=== PATIENT | female | born 1970 | race Caucasian/White ===

== ENCOUNTER → 2020-07-12 10:47 | Outpatient (REF) | payer OTHER, SELFPAY ==
--- NOTE | 2020-07-12 | NM_ITS ---
EXAMINATION: THREE PHASE BONE SCAN CLINICAL INFORMATION: Left foot pain. Patient states top lateral aspect of left foot pain for 5 1/2 years. Also status post bilateral elbow fractures May,, right shoulder surgery 6-7 years ago. Status post fall 3 1/2 months ago with elbow pain right greater than left.. COMPARISON: The report of a previous three-phase bone scan of the feet dated 05/24/2006 is available, but the images from that study are not available for review. No recent foot radiographs are available for comparison. Radiographs of the.right elbow dated 05/27/2020 are available for comparison. TECHNIQUE: Initial rapid sequence images were obtained over the in the anterior and posterior projections during the bolus injection of 32 mCi Tc-99m MDP. Static images of the distal lower extremities and distal upper extremities in multiple projections were then obtained 3 hours post injection. FINDINGS: Initial rapid sequence images show bilaterally symmetrical flow to the feet with no foci of abnormally increased flow present at any site. Blood pool images obtained immediately following the flow study show no significant foci of increased blood pool activity in either foot. The delayed static images show minimally increased activity in the right first metatarsophalangeal joint, likely degenerative and in a small focus in the mid right fifth metatarsal. In both feet there is very mildly increased activity across the mid feet, likely in the tarsometatarsal joints and also in the base of the left fifth metatarsal bone. No abnormalities are present in either elbow. In both hands there is minimally increased activity in the first carpometacarpal joints. IMPRESSION: Minimal abnormalities in both feet are present likely degenerative or posttraumatic. In the left foot the most prominent abnormality is very mild in the base of the fifth metatarsal bone. No significant abnormalities are present in either elbow. In both hands there is minimally increased activity at the first carpometacarpal joints, likely due to mild degenerative arthritic changes..
== END ==
LOC: HO.NUCMED 10:47
PROVIDERS: PCP Internal Medicine; Visit Provider Internal Medicine
DX: M79.672 Pain in left foot (principal)
CPT/HCPCS: 78300; A9503

== ENCOUNTER 2020-07-29 10:40 | Outpatient (REF) | payer OTHER, SELFPAY ==
--- NOTE | 2020-07-29 10:42 | XR_ITS ---
EXAMINATION: XR ELBOW, RIGHT CLINICAL INFORMATION: Pain right elbow COMPARISON: Radiographs right elbow 05/27/2020 TECHNIQUE: The right elbow is imaged in AP and 2 lateral views for a total of 3 views. FINDINGS: There is no fracture, dislocation, or intracapsular effusion. Bony mineralization is normal. There is no joint narrowing or erosive change or visible chondrocalcinosis. No definite epicondylar or olecranon spurring. IMPRESSION: Unremarkable right elbow.
== END 2020-07-29 10:41 | disposition home or self-care (01) ==
LOC: HO.XRAY 10:40
PROVIDERS: PCP Internal Medicine; Referring Provider Internal Medicine; Visit Provider Orthopaedic Surgery
DX: M77.01 Medial epicondylitis, right elbow (principal); M25.521 Pain in right elbow
CPT/HCPCS: 20605; 73070; 99214; J1100

== ENCOUNTER 2020-08-23 10:19 | Day surgery (SDC) | payer OTHER, SELFPAY ==
[2020-08-19 11:18] VITALS: BMI 33.5
--- NOTE | 2020-08-22 10:23 | HO.ANESPROP2 ---
HPI - Anesthesia Eval Consult details Narrative: 50yo F for Genicular Nerve Stimulation Trial PMFSH Past Medical History Medical History Back pain Environmental allergies Hx of iron deficiency anemia Lumbar degenerative disc disease Medial epicondylitis of right elbow Restless leg syndrome Right elbow pain Family History Family History Mother Hypertension Father No problems noted. 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 - [employer] Meds Allergies Allergy/AdvReac Type Severity Reaction Status Date / Time Sulfa (Sulfonamide Allergy Unknown hives Verified 07/29/20 11:04 Antibiotics) sulfamethoxazole Allergy Unknown RASH Verified 07/29/20 11:04 [From BACTRIM] trimethoprim [From BACTRIM] Allergy Unknown RASH Verified 07/29/20 11:04 Home Medications Medication Instructions Recorded Confirmed Type cetirizine 10 mg capsule 10 mg PO DAILY 07/29/20 08/19/20 History nortriptyline 25 mg capsule 25 mg PO BEDTIME 07/29/20 08/19/20 History pregabalin 1 cap PO BID 08/19/20 08/19/20 History Exam Exam Date and Time: August 22, 2020 1023 Height,Weight and Vital Signs: Height 5 ft 4 in Weight 88.451 kg Assessment and Plan Assessment Anesthesia Assessment: Chart Reviewed
[2020-08-23 10:45] VITALS: BP 137/73; PULSE 93; RESP 20; TEMP 35.7; O2SAT 96
--- NOTE | 2020-08-23 10:49 | FL_ITS ---
EXAMINATION: XR FLUOROSCOPY WITH IMAGES CLINICAL INFORMATION: Geniculare stimulation trial COMPARISON: None. TECHNIQUE: Fluoroscopy performed by Dr. Luigi Zambrano. Fluoroscopy time: 0 minutes DAP: 0.03 varma per centimeter squared. Total dose 0.1 mgy. Images: 1 FINDINGS: There is a lead projecting over the left proximal femur/lesser trochanter. FL/FL guidance in OR IMPRESSION: Fluoroscopy guidance for geniculare stimulation trial.
--- NOTE | 2020-08-23 10:54 | HO.ANESPROP2 ---
[facility] Past Medical History Medical History Back pain Environmental allergies Hx of iron deficiency anemia Lumbar degenerative disc disease Medial epicondylitis of right elbow Restless leg syndrome Right elbow pain Family History Family History Mother Hypertension Father No problems noted. 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 - [employer] Meds Allergies Allergy/AdvReac Type Severity Reaction Status Date / Time Sulfa (Sulfonamide Allergy Unknown hives Verified 07/29/20 11:04 Antibiotics) sulfamethoxazole Allergy Unknown RASH Verified 07/29/20 11:04 [From BACTRIM] trimethoprim [From BACTRIM] Allergy Unknown RASH Verified 07/29/20 11:04 Home Medications Medication Instructions Recorded Confirmed Type cetirizine 10 mg capsule 10 mg PO DAILY 07/29/20 08/19/20 History nortriptyline 25 mg capsule 25 mg PO BEDTIME 07/29/20 08/19/20 History pregabalin 1 cap PO BID 08/19/20 08/19/20 History Exam Exam Date and Time: August 23, 2020 1054 Height,Weight and Vital Signs: Height 5 ft 4 in Weight 88.451 kg Last Vital Signs Temp 96.3 F L 08/23/20 10:45 Pulse 93 08/23/20 10:45 Resp 20 08/23/20 10:45 BP 137/73 08/23/20 10:45 Pulse Ox 96 08/23/20 10:45 Airway Mallampati Class: II TM Dist: >3cm Neck ROM: Full Assessment and Plan Assessment Anesthesia Assessment: Anesthesia Plan Discussed and Chart Reviewed Final Anesthetic Review NPO: Yes ASA Class: II Final Preanesthetic Review: No Changes in Pt Med Stat, Meds/Allgs Chart Reviewed, Consent Obtained/Reviewed and Anes Risks/Benef Reviewed Patient Risk: Intermediate Procedure Risk: Low Assessment/Block/Sedation in SS: Assess/Block/Sedation-SS Anesthetic Plan Anesthetic Plan: MAC: Disposition: Standard PACU
[2020-08-23] MEDS: Lactated Ringers 1,000 ML 100 ML IVCONT (10:58)
[2020-08-23] MEDS: ceFAZolin Sodium/Dextrose,Iso 2 GM/50 ML PIGGYBACK IV (11:03)
--- NOTE | 2020-08-23 11:19 | MHC.SHP ---
Pre-Procedural Eval Section A The patient is an INPATIENT: No The History & Physical has been completed within 30 days and I have reviewed it.: No Section B Chief Complaint: Femoral Neuropathy of Left Lower Extremities Details of Present Illness: left lower leg pain Relevant Family History (Specify if Yes): No Relevant Social History: None Present Medications: None Medical History: No relevant PMH Allergies: Allergies Allergy/AdvReac Type Severity Reaction Status Date / Time Sulfa (Sulfonamide Allergy Unknown hives Verified 07/29/20 11:04 Antibiotics) sulfamethoxazole Allergy Unknown RASH Verified 07/29/20 11:04 [From BACTRIM] trimethoprim [From BACTRIM] Allergy Unknown RASH Verified 07/29/20 11:04 Review of Systems Sugical H&P ROS: Negative: Constitution, Cardiovascular, Respiratory, Neurological, Psychiatric, Hem-Onc, Allergic/Immunologic, Gastrointestinal, Genitourinary, Musculoskeletal, Integumentary, Endocrine and Eyes/Ears/Nose/Throat Exam Surgical H&P Exam: Normal: HEENT, Normal: Heart, Normal: Lungs, Normal: Extremities, Normal: Abdomen, Normal: Skin and Normal: Neurological Plan Diagnosis/Plan: Change (left femoral nerve stimulation stimwave procedure trial) Patient has been examined and remains a candidate for the planned procedure
[2020-08-23 12:34] VITALS: BP 141/79; PULSE 84; RESP 12; TEMP 36.3; O2SAT 96
[2020-08-23 12:39] VITALS: BP 134/80; PULSE 80; RESP 18; O2SAT 96
[2020-08-23 12:54] VITALS: BP 129/58; PULSE 80; RESP 18; O2SAT 96
--- NOTE | 2020-08-23 15:05 | P.OP_ITS ---
Operative Note Operative Note Date of Service: 08/23/20 Narrative: trial of peripheral nerve stimulation stim wave technology After obtaining informed consent patient was brought to the operating room, she was positioned prone on operating table, [place] [employer] kassie tors were applied and patient was deeply sedated. Time-out was performed delineating correct site, side, the nature of the procedure, patient's allergy, preoperative antibiotic. All operating room staff was participating in OR time-out procedure. The patient is a left groin and surrounding areas of the skin were prepped with ChloraPrep x2 and draped with full body drape. Sterilely draped ultrasound probe was brought over the operating field and applied to the patient's left groin. Patient's femoral artery, femoral vein, and performed femoral artery were demonstrated on the screen. Lateral from the femoral artery femoral nerve was demonstrated on the screen as well. 3 cm below the level of the patient's groin local anesthetic was applied to the skin and small pete of 15 blade scal pel was used to make penetration into the skin. After that on introducer needle with protection stylet inside was advanced through the skin and into the patient's location of the femoral nerve on under ultrasound guidance. When the needle appeared to be shifting femoral nerve a medially to were the artery the stylet was removed and guidewire was inserted. Guidewire was appeared to be advancing alongside the femoral nerve. The insertion of the stimulating wire was performed and positioned alongside the nerve. The patient at this moment was awaken and reported up sensation of stimulation going into the medial thigh medial she in and into her medial malleolus on the left in perfect distribution of femoral nerve innervation. After that to the stimulating wire inside of the stimulating lead was tight and stiff stimulating wire was glued to the skin in the area of stimulation. The Steri-Strips were applied to prevent dislodgement of the stimulating wire. After that the the cyst sterile dressing including Tegaderm film was applied to the area of the operation. The care was taken to position the antenna of the stimulating lead in the straight fashion. The patient tolerated procedure well she was taking outside of the operating room to recovery room where she recovered uneventfully. She went home without immediate complications.
== END 2020-08-23 13:28 | disposition home or self-care (01) ==
PROVIDERS: PCP Internal Medicine; Visit Provider Anesthesiology
PROC: (CPT 64555; principal; 2020-08-23 12:20)
DX: G57.22 Lesion of femoral nerve, left lower limb (principal); M79.662 Pain in left lower leg; G25.81 Restless legs syndrome; Z79.899 Other long term (current) drug therapy; Z88.2 Allergy status to sulfonamides
CPT/HCPCS: 64555; J0690; J1100; J2250; J2405; J3010

== ENCOUNTER → 2020-08-29 09:45 | Outpatient (BNVA) | payer OTHER, SELFPAY | PROVIDERS: PCP Internal Medicine; Referring Provider Internal Medicine; Visit Provider Anesthesiology | DX: G57.22 Lesion of femoral nerve, left lower limb (principal); Z98.890 Other specified postprocedural states | CPT/HCPCS: 99212 ==

== ENCOUNTER 2020-09-30 13:47 | Outpatient (REF) | payer OTHER, SELFPAY | END 2020-09-30 13:48 | disposition home or self-care (01) | LOC: HO.LAB 13:47 | PROVIDERS: Visit Provider Internal Medicine | DX: Z20.828 Contact with and (suspected) exposure to other viral communicable diseases (principal) | CPT/HCPCS: C9803; U0003 ==

== ENCOUNTER 2020-12-13 06:03 | Day surgery (SDC) | payer OTHER, SELFPAY ==
[2020-12-09 10:49] VITALS: BMI 37.8
--- NOTE | 2020-12-12 09:06 | MHC.SHP ---
Pre-Procedural Eval Section A The patient is an INPATIENT: No Changes since office visit: Yes Patient answered all questions The History & Physical has been completed within 30 days and I have reviewed it.: No Section B Chief Complaint: lesion of femoral nerve,left lower limb Details of Present Illness: Femoral nerve neuropathy left Relevant Family History (Specify if Yes): No Relevant Social History: None Present Medications: see Short Stay Collaborative assessment Medical History: No relevant PMH History of Previous Operations: No relevant previous surgery Allergies: Allergies Allergy/AdvReac Type Severity Reaction Status Date / Time Sulfa (Sulfonamide Allergy Unknown hives Verified 12/09/20 10:37 Antibiotics) sulfamethoxazole Allergy Unknown RASH Verified 12/09/20 10:37 [From BACTRIM] trimethoprim [From BACTRIM] Allergy Unknown RASH Verified 12/09/20 10:37 Review of Systems Sugical H&P ROS: Negative: Constitution, Cardiovascular, Respiratory, Neurological, Psychiatric, Hem-Onc, Allergic/Immunologic, Gastrointestinal, Genitourinary, Musculoskeletal, Integumentary, Endocrine and Eyes/Ears/Nose/Throat Exam Surgical H&P Exam: Normal: HEENT, Normal: Heart, Normal: Lungs, Normal: Extremities, Normal: Abdomen, Normal: Skin and Normal: Neurological Plan Diagnosis/Plan: Unchanged I have reviewed the history and physical and performed a pertinent physical examination on my patient. No changes have occurred unless specified.
[2020-12-13 06:27] LABS: UPreg QC Valid YES; Urine Pregnancy NEGATIVE (NEGATIVE)
[2020-12-13 06:34] VITALS: BP 119/71; PULSE 91; RESP 18; TEMP 36.1; O2SAT 96
[2020-12-13] MEDS: Lactated Ringers 1,000 ML 100 ML IVCONT (06:47)
--- NOTE | 2020-12-13 07:14 | P.CONAN_ITS ---
[facility] Active Problems Active Problems: All Active Problems (Updated 12/09/20 @ 10:36 by Veronique marino) Sinusitis (Acute) Anosmia (Acute) Loss of taste (Acute) Lesion of femoral nerve, left lower limb (Acute) Medial epicondylitis of right elbow (Acute) Right elbow pain (Acute) Lumbar degenerative disc disease (Acute) Past Medical History Medical History Back pain Environmental allergies Frequent headaches Hx of iron deficiency anemia Left leg pain Lesion of femoral nerve, left lower limb Lumbar degenerative disc disease Medial epicondylitis of right elbow Restless leg syndrome Right elbow pain Family History Family History Mother Hypertension Father No problems noted. Surgical History Surgical History History of nasal surgery Hx of knee surgery Hx of shoulder surgery S/p bilateral myringotomy with tube placement Status post correction of deviated nasal septum Social History Social History Are you a primary healthcare translator to a significant other at home: No Do you presently have visiting nurse or other home services: No Alcohol intake: never Smoking Status: Unknown if ever smoked Use of substances other than those prescribed or required for medical reasons: No Have you been hit, kicked, punched, or otherwise hurt by someone within the past year? 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[employer] Meds Allergies Allergy/AdvReac Type Severity Reaction Status Date / Time Sulfa (Sulfonamide Allergy Unknown hives Verified 12/13/20 06:31 Antibiotics) sulfamethoxazole Allergy Unknown RASH Verified 12/13/20 06:31 [From BACTRIM] trimethoprim [From BACTRIM] Allergy Unknown RASH Verified 12/13/20 06:31 Home Medications Medication Instructions Recorded Confirmed Last Taken Type pregabalin 1 cap PO BID 08/19/20 12/09/20 Unknown History acetaminophen-caffeine [Excedrin 1 tab PO Q12H PRN 12/09/20 12/09/20 Unknown History Tension Headache] ibuprofen 1 tab PO Q8H PRN 12/09/20 12/09/20 12/07/20 10:30 History Exam Exam Date and Time: December 13, 2020 0714 Height,Weight and Vital Signs: Height 5 ft 4 in Weight 99.79 kg Last Vital Signs Temp 96.9 F 12/13/20 06:34 Pulse 91 12/13/20 06:34 Resp 18 12/13/20 06:34 BP 119/71 12/13/20 06:34 Pulse Ox 96 12/13/20 06:34 Pertinent Lab Results Pertinent Lab Results: Laboratory Tests 12/13/20 06:15 Urine Test NEGATIVE Airway Mallampati Class: II TM Dist: >3cm Neck ROM: Full Loose/Missing/Broken Teeth: No Heart: RRR Lungs: NL Assessment and Plan Assessment Anesthesia Assessment: Anesthesia Plan Discussed and Chart Reviewed Final Anesthetic Review NPO: Yes ASA Class: III Final Preanesthetic Review: No Changes in Pt Med Stat, Meds/Allgs Chart Reviewed, Consent Obtained/Reviewed and Anes Risks/Benef Reviewed Patient Risk: Intermediate Procedure Risk: Low Anesthetic Plan Anesthetic Plan: MAC: Disposition: Standard PACU
[2020-12-13 09:40] VITALS: BP 124/71; PULSE 84; RESP 20; TEMP 36.6; O2SAT 96
[2020-12-13 09:55] VITALS: BP 134/85; PULSE 82; RESP 20; TEMP 36.4; O2SAT 98
--- NOTE | 2020-12-13 09:58 | PM.OP ---
Brief Operative Note Date of Service: 12/13/20 Pre-op diagnosis: femoral nerve neuropathy. Post-op diagnosis: same Procedure: open femoral nerve nerve stimulation implantation Implants: Stimwave implant Surgeon: Luigi Zambrano MD Anesthesia: MAC Estimated blood loss (mL): 30 Pathology: none sent Condition: stable Disposition: PACU
--- NOTE | 2020-12-15 08:46 | P.OP_ITS ---
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 She had a successful trial of her pain treated with stimwave peripheral nerve stimulation. After obtaining informed consent and explaining to the patient risks, benefits and alternatives to treat her pain, the patient was brought up to the operating room where she was positioned supine on the operating table. [place] [employer] monitors were applied and general anesthesia was induced with endotracheal intubation. The patient received antibiotic intravenously 30 minutes before the procedure ( see anesthesia records). Time-out was performed delineating correct site and side of the procedure, name and date of of the patient, risk of fire, need for antibiotic prophylaxis risk of DVT and need for DVT prophylaxis. After that the patient left lower abdomen and left groin as well as left anterior leg were was prepped with chloroprep twice and draped with full body fenestrated drape. Sterilely draped Ultrasound probe was brought on the field and the picture of the femoral artery and femoral nerve were demonstrated on the screen. 14 g introducer Coude needle was used in extra-anatomical fashion to insert through the skin and reach the proximity of the left femoral nerve. After that in-plane technique of the needle positioning was used to advance the 4- electrode lead array stimulator so that the middle two electrodes were over the femoral nerve. Inter-operative stimulation was provided without a good coverage. No femoral motor stimulation was observed. Lateral shift of the electrode array was suspected. The electrode array was removed. After that the projection of the femoral nerve and femoral artery to the skin was infiltrated with lidocaine 2% and bupivacaine 0.5% 1:1 mixture in the patient left groin. 4 cm long skin incision was made in the vertical fashion; the wound was widened using Wheatlander retractor until fascia ian was freed from the overlaying fat tissues. The ultrasound probe was positioned over the fascia and picture of femoral nerve was again demonstrated on the screen. The introducer 14 gauge straight needle was inserted below the US probe in the projection of the nerve in perpendicular to the ultrasound plane fashion. The thined electrode array was positioned over the femoral nerve under direct ultrasound live control. After that the needle introducer was removed and two 4-0 dacron sutures were used to suture the electrode array to the fascia ian. The wound was irrigated with vancomycin containing normal saline. A skin wheal was made 8 cm below the lowest corner of the wound. The needle was passed through the skin wheal and directed into the inferior corner of the incision to create a tunnel for national guard member placement. The national guard member portion of the stimulator was passed through the needle and externalized. The coil was made on the distal end of the electrode array after the copper wire was inserted into the electrode array and a tie was completed below the distal national guard member electrode. The coil was fixed with two silk sutures and after that a small 0.7 cm horizontal skin incision was made to extend the skin puncture side. The coil was inserted under the skin and positioned in the fashion allowing the national guard member to remain in the straight line. The wound in the groin was closed with 2-0 vicril sutires and 2-0 vicril was used again to approximate the level of the skin. The benito were applied to the groin wound and to the thigh wound below. Bacitracin ointment was applied to the staple lines. Sterile dressing was performed and antenna of the stimulator was positioned over the national guard member and taped to the dressing. After that the patient was awakened and transferred stable to PACU. While in PACU she reported stimulation sensation in the femoral nerve at 2 milliampere.
== END 2020-12-13 10:22 | disposition home or self-care (01) ==
PROVIDERS: Anesthesiology; PCP Internal Medicine; Visit Provider Anesthesiology
PROC: (CPT 64555; principal; 2020-12-13 07:30)
DX: G57.22 Lesion of femoral nerve, left lower limb (principal); M79.605 Pain in left leg; M51.36 Other intervertebral disc degeneration, lumbar region; Z79.1 Long term (current) use of non-steroidal anti-inflammatories (NSAID); Z79.899 Other long term (current) drug therapy; Z88.2 Allergy status to sulfonamides; Z88.8 Allergy status to other drugs, medicaments and biological substances
CPT/HCPCS: 64555; 81025; C1778; C1787; C1816; C1897; J0690; J2250; J3370

== ENCOUNTER 2020-12-16 10:59 | Emergency (ER) | payer OTHER, SELFPAY ==
[2020-12-16 11:09] VITALS: BP 163/81; PULSE 98; RESP 18; TEMP 36.7; O2SAT 99; BMI 35.2
[2020-12-16 12:52] LABS: MANUAL DIFF FLAG NO
[2020-12-16 12:56] LABS: Basophils Absolute Auto 0.1 X10*3/uL (0.0-0.2); Basophils Percent Auto 1.4 % (0-2); Eosinophils Absolute Auto 0.9 X10*3/uL (0.0-0.4); Hemoglobin 11.6 g/dl (12.0-16.0); Imm Gran Abs Auto 0.02 X10*3/uL (0.00-0.03); Imm Gran Pct Auto 0.3 % (0.0-0.4); Lymphocytes Absolute Auto 2.7 X10*3/uL (1.2-4.9); Lymphocytes Percent Auto 38.7 % (20-40); Mean Corpuscular HGB Conc 33.1 g/dl (31.0-35.0); Mean Corpuscular Hemoglobin 31.1 pg (27.0-33.0); Mean Corpuscular Volume 93.8 fL (80-98); Mean Platelet Volume 10.6 fL (9.4-12.3); Monocytes Absolute Auto 0.7 X10*3/uL (0.1-1.2); Monocytes Percent Auto 10.6 % (2-11); Neutrophils Absolute Auto 2.5 X10*3/uL (2.0-8.3); Platelet Count 306 X10*3/uL (160-400); Red Blood Count 3.73 X10*6/uL (4.20-5.50); Red Cell Distribution Width 12.6 % (11.0-16.0)
[2020-12-16 13:21] LABS: Anion Gap 12 (12-20); Blood Urea Nitrogen 6 mg/dL (9-16); Carbon Dioxide 30 mmol/L (22-29); Chloride 102 mmol/L (96-108); Estimated Glomerular Filt Rate > 60; Glucose Random 112 mg/dL (60-115); Potassium 4.4 mmol/L (3.3-5.1); Sodium 140 mmol/L (135-145)
== END 2020-12-16 16:28 | disposition left against medical advice (07) ==
PROVIDERS: Emergency Provider Emergency Medicine; PCP Internal Medicine
DX: R06.02 Shortness of breath (principal); Z95.820 Peripheral vascular angioplasty status with implants and grafts
CPT/HCPCS: 36415; 80048; 85025; 99282; 99283

== ENCOUNTER → 2020-12-19 11:20 | Outpatient (BNVA) | payer OTHER, SELFPAY | PROVIDERS: PCP Internal Medicine; Visit Provider Anesthesiology | DX: G57.22 Lesion of femoral nerve, left lower limb (principal); Z79.899 Other long term (current) drug therapy | CPT/HCPCS: 99212 ==

== ENCOUNTER → 2020-12-26 11:18 | Outpatient (BNVA) | payer OTHER, SELFPAY | PROVIDERS: PCP Internal Medicine; Visit Provider Anesthesiology | DX: G57.22 Lesion of femoral nerve, left lower limb (principal) | CPT/HCPCS: 99212 ==

== ENCOUNTER → 2021-01-02 10:29 | Outpatient (BNVA) | payer OTHER, SELFPAY | PROVIDERS: PCP Internal Medicine; Visit Provider Anesthesiology | DX: G57.22 Lesion of femoral nerve, left lower limb (principal); F17.200 Nicotine dependence, unspecified, uncomplicated; Z71.6 Tobacco abuse counseling; Z79.899 Other long term (current) drug therapy | CPT/HCPCS: 99212 ==

== ENCOUNTER → 2021-02-05 14:39 | Outpatient (BNVA) | payer OTHER, SELFPAY | PROVIDERS: PCP Internal Medicine; Visit Provider Anesthesiology | DX: G57.22 Lesion of femoral nerve, left lower limb (principal); Z79.899 Other long term (current) drug therapy | CPT/HCPCS: 99212 ==

== ENCOUNTER 2021-03-19 12:54 | Outpatient (REF) | payer OTHER, SELFPAY ==
--- NOTE | ~2021-03-19 | MM_ITS ---
EXAMINATION: MM SCREENING DIGITAL BREAST TOMOSYNTHESIS, BILATERAL CLINICAL INFORMATION: Screening. Asymptomatic. The lifetime risk of breast cancer based on the Tyrer-Cuzick Model is 22.1%. Additional annual screening with breast MRI may be of benefit in women with a Score of 20% or greater. COMPARISON: Mammography: May 03, 2019 and studies dating back to March 17, 2014 TECHNIQUE: Digital breast tomosynthesis is performed in both the craniocaudal and mediolateral oblique views along with computer-aided detection (CAD). Synthesized 2D images are generated from the tomosynthesis. FINDINGS: The breasts are heterogeneously dense, which may obscure small masses (ACR BI-RADS breast composition Category c). There are no new significant masses, abnormal calcifications, or other abnormalities. MM/MM tomosynthesis screening BI IMPRESSION: There are no significant changes from prior study. ASSESSMENT: BI-RADS 1: Negative RECOMMENDATION: Routine annual mammography screening. Consideration of screening MRI. This patient's information was entered into a reminder system with a target due date for their next mammogram.
== END 2021-03-19 12:55 | disposition home or self-care (01) ==
LOC: HO.MAMMO 12:54
PROVIDERS: PCP Internal Medicine; Visit Provider Internal Medicine
DX: Z12.31 Encounter for screening mammogram for malignant neoplasm of breast (principal)
CPT/HCPCS: 77063; 77067

== ENCOUNTER 2021-06-03 11:07 | Emergency (ER) | payer OTHER, SELFPAY ==
[2021-06-03 12:23] VITALS: BP 129/61; PULSE 81; RESP 18; TEMP 36.8; O2SAT 100; BMI 34.3
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
== END 2021-06-03 15:00 | disposition home or self-care (01) ==
PROVIDERS: Emergency Provider Emergency Medicine; PCP Internal Medicine
DX: S16.1XXA Strain of muscle, fascia and tendon at neck level, initial encounter (principal); S39.012A Strain of muscle, fascia and tendon of lower back, initial encounter; V43.52XA Car driver injured in collision with other type car in traffic accident, initial encounter; Y93.89 Activity, other specified; Y92.414 Local residential or business street as the place of occurrence of the external cause; Y99.9 Unspecified external cause status
CPT/HCPCS: 99283

== ENCOUNTER 2021-06-06 09:05 | Outpatient (REF) | payer OTHER, SELFPAY ==
--- NOTE | ~2021-06-06 | XR_ITS ---
EXAMINATION: LUMBAR SPINE X-RAY CLINICAL INFORMATION: Low back pain COMPARISON: Previous x-ray November 2018 and MRI October 2019 TECHNIQUE: 3 views of the lumbar spine FINDINGS: Bone alignment is normal. No fracture or dislocation is seen. Spaces are normal. There is mild degenerative spondylosis at T12-L1, L1-L2 and L2-L3. There is lower lumbar spine facet arthritis. XR/XR cervical spine 3V IMPRESSION: Mild degenerative changes. EXAMINATION: Cervical spine x-ray CLINICAL INFORMATION: Pain COMPARISON: Previous cervical spine CT October 2014 TECHNIQUE: 3 views of the cervical spine FINDINGS: There is mild 2 mm anterior subluxation of C4 with respect to C5. This is similar to previous CT scan probably related to facet arthritis. There is mild curvature of the lower cervical and upper thoracic spine to the left. Bone alignment is otherwise normal. Disc spaces are normal. There is facet arthritis on the right, greatest at the C4-C5 and C5-C6. There are degenerative changes at the C1 dens articulation. Prevertebral soft tissues are normal. IMPRESSION: Degenerative changes.
--- NOTE | ~2021-06-06 | XR_ITS ---
EXAMINATION: LUMBAR SPINE X-RAY CLINICAL INFORMATION: Low back pain COMPARISON: Previous x-ray November 2018 and MRI October 2019 TECHNIQUE: 3 views of the lumbar spine FINDINGS: Bone alignment is normal. No fracture or dislocation is seen. Spaces are normal. There is mild degenerative spondylosis at T12-L1, L1-L2 and L2-L3. There is lower lumbar spine facet arthritis. XR/XR lumbar spine 2-3V IMPRESSION: Mild degenerative changes. EXAMINATION: Cervical spine x-ray CLINICAL INFORMATION: Pain COMPARISON: Previous cervical spine CT October 2014 TECHNIQUE: 3 views of the cervical spine FINDINGS: There is mild 2 mm anterior subluxation of C4 with respect to C5. This is similar to previous CT scan probably related to facet arthritis. There is mild curvature of the lower cervical and upper thoracic spine to the left. Bone alignment is otherwise normal. Disc spaces are normal. There is facet arthritis on the right, greatest at the C4-C5 and C5-C6. There are degenerative changes at the C1 dens articulation. Prevertebral soft tissues are normal. IMPRESSION: Degenerative changes.
== END 2021-06-06 09:06 | disposition home or self-care (01) ==
LOC: HO.HMGCX 09:05
PROVIDERS: PCP Internal Medicine; Visit Provider Internal Medicine
DX: S39.012A Strain of muscle, fascia and tendon of lower back, initial encounter (principal); M54.5 Low back pain; V89.2XXA Person injured in unspecified motor-vehicle accident, traffic, initial encounter
CPT/HCPCS: 72040; 72100

== ENCOUNTER 2021-06-10 09:26 | Outpatient (REF) | payer OTHER, SELFPAY ==
[2021-06-10 11:16] LABS: Glucose Urine UA NEG (NEG); Leukocyte Esterase Urine NEG (NEG); Nitrite Urine NEG (NEG); Specific Gravity - Urine 1.025 (1.005-1.025); Urine Blood NEG (NEG); Urine Ketones NEG (NEG); Urine Protein NEG (NEG-TRACE)
[2021-06-10 11:17] LABS: Appearance Urine HAZY; Color Urine YELLOW
[2021-06-10 11:23] LABS: MANUAL DIFF FLAG NO
[2021-06-10 11:42] LABS: Basophils Absolute Auto 0.1 X10*3/uL (0.0-0.2); Eosinophils Absolute Auto 0.2 X10*3/uL (0.0-0.4); Eosinophils Percent Auto 3.1 % (0-4); Hematocrit 37.6 % (37-47); Hemoglobin 12.4 g/dl (12.0-16.0); Imm Gran Abs Auto 0.01 X10*3/uL (0.00-0.03); Imm Gran Pct Auto 0.2 % (0.0-0.4); Lymphocytes Absolute Auto 1.8 X10*3/uL (1.2-4.9); Lymphocytes Percent Auto 34.9 % (20-40); Mean Corpuscular Hemoglobin 30.7 pg (27.0-33.0); Mean Corpuscular Volume 93.1 fL (80-98); Mean Platelet Volume 11.2 fL (9.4-12.3); Monocytes Absolute Auto 0.5 X10*3/uL (0.1-1.2); Monocytes Percent Auto 10.3 % (2-11); Neutrophils Absolute Auto 2.7 X10*3/uL (2.0-8.3); Neutrophils Percent Auto 50.5 % (45-73); Platelet Count 273 X10*3/uL (160-400); Red Blood Count 4.04 X10*6/uL (4.20-5.50); Red Cell Distribution Width 12.7 % (11.0-16.0); White Blood Count 5.2 X10*3/uL (4.8-10.8)
[2021-06-10 11:59] LABS: Alanine Aminotransferase 16 U/L (0-31); Albumin Level 4.5 g/dL (3.5-5.0); Alkaline Phosphatase 108 U/L (39-117); Anion Gap 11 (12-20); Aspartate Amino Transferase 15 U/L (5-31); Bilirubin Total 0.5 mg/dL (0.0-1.0); Blood Urea Nitrogen 13 mg/dL (9-16); Calcium 9.8 mg/dL (8.4-10.2); Carbon Dioxide 27 mmol/L (22-29); Chloride 105 mmol/L (96-108); Cholesterol 241 mg/dL; Estimated Glomerular Filt Rate > 60; Glucose Fasting 93 mg/dL (60-99); HDL Cholesterol 65 mg/dL; LDL Cholesterol Calculated 148 mg/dl; Potassium 4.4 mmol/L (3.3-5.1); Sodium 139 mmol/L (135-145); Total Protein 7.7 g/dL (6.5-8.0); Triglycerides 141 mg/dL
[2021-06-10 12:13] LABS: TSH reflex Free T4 1.51 uIU/mL (0.32-4.0); Vitamin D 25-OH Total 27.1 ng/mL (>30)
[2021-06-10 14:33] LABS: Estimated Average Glucose 105 mg/dL; Hemoglobin A1C 111.4322 umol/L; Hemoglobin A1c % 5.3 %
== END 2021-06-10 09:27 | disposition home or self-care (01) ==
LOC: HO.HMGCLDS 09:26
PROVIDERS: PCP Internal Medicine; Visit Provider Internal Medicine
DX: J30.9 Allergic rhinitis, unspecified (principal); E55.9 Vitamin D deficiency, unspecified; R42 Dizziness and giddiness; R73.9 Hyperglycemia, unspecified; R30.0 Dysuria; E78.5 Hyperlipidemia, unspecified
CPT/HCPCS: 36415; 80053; 80061; 81003; 82306; 83036; 84443; 85025

== ENCOUNTER 2021-08-12 12:00 | Outpatient (RCR) | payer OTHER, SELFPAY ==
--- NOTE | 2021-08-01 11:58 | MHC.PT.EP ---
[facility] [place] Office [place] Office [place] Office [address] Francisco Barr [address] [phone] F: [phone] F: [phone] F: [phone] F: [phone] Physical Therapy Plan of Care Date of Evaluation: Date of Surgery: Diagnosis: hx of lumbar DDD Assessment: pt's radicular symptoms appear to be positional in nature and not true lumbar radiculopathy. pt overall presents guarded and is limited by central low back pain. This therapist was unable to reproduce referred pain. pt presents to physical therapy with pain, decreased range of motion, decreased strength, impaired functional mobility, impaired postural awareness, and gait deviations. pt is a good candidate for skilled PT due to age, potential remediation of impairments, typical disease/condition progression and prognosis, comorbidities, and motivation. pt would benefit from tailored strengthening and stretching exercise program, functional training, gait training, postural re-training, neuromuscular re-education, modalities as needed for pain, equipment safety demonstration. Frequency and Duration: The patient will be seen 2x/wk for 4 wks Short Term Goals: pt will be I w/ HEP to promote self-management of condition. pt will demo proper sitting posture w/ lumbar roll to promote neutral spine w/ seated ADLs. Shelter Goals: pt will report <3/10 low back pain w/ standing >20 min to promote pain-limited return to standing ADLs. pt will report a statistically significant improvement in self-reported outcome measure, Yvette, to promote return to PLOF. Treatment Plan: Modalities to reduce pain, spasms and effusion. Manual therapy to restore motion and function. Therapeutic exercise to improve strength and flexibility. Neuromuscular re-education for posture and balance. Therapeutic activities to return to functional activities of daily living. Electronically signed by: Liane Segura PT, DPT Please sign and return to therapist. Thank you for your referral.
--- NOTE | 2021-08-27 14:39 | MHC.PT.DC ---
[facility] [place] Office [place] Office [place] Office [address] Francisco Barr [address] [phone] F: [phone] F: [phone] F: [phone] F: [phone] Physical Therapy Discharge Report Diagnosis: hx of lumbar DDD Date of Surgery: Date of Evaluation: 08/01/21 Date of Discharge: 08/27/21 Treatments to Date: 3 Cancellations to Date: 3 No Shows to Date: 1 Discharge Status: Patient Elected to Stop Discharge Summary: The patient called our office to discharge herself from physical therapy. She was reporting little to no pain with targeted core and hip exercises. She has a home exercise program consisting of said exercises. She is discharged from this PT plan of care per her request. Electronically signed by: Liane Segura PT, DPT Please sign and return to therapist. Thank you for your referral.
== END 2021-08-27 14:39 | disposition home or self-care (01) ==
LOC: HO.PT 12:00
PROVIDERS: PCP Internal Medicine; Visit Provider Internal Medicine
DX: Z87.39 Personal history of other diseases of the musculoskeletal system and connective tissue (principal); V89.2XXD Person injured in unspecified motor-vehicle accident, traffic, subsequent encounter
CPT/HCPCS: 97110; 97112; 97116; 97140; 97162; 97530

== ENCOUNTER → 2021-11-11 14:40 | Outpatient (BNVA) | payer OTHER, SELFPAY | PROVIDERS: PCP Internal Medicine; Visit Provider Nurse Practitioner Family ==

== ENCOUNTER 2021-11-12 09:46 | Outpatient (REF) | payer OTHER, SELFPAY ==
[2021-11-12 11:30] LABS: MANUAL DIFF FLAG NO
[2021-11-12 11:32] LABS: Appearance Urine HAZY; Color Urine YELLOW; Glucose Urine UA NEG (NEG); Leukocyte Esterase Urine 1+ (NEG); Nitrite Urine NEG (NEG); Specific Gravity - Urine 1.015 (1.005-1.025); UACC Culture Trigger YES; Urine Blood NEG (NEG); Urine Ketones NEG (NEG); Urine Protein NEG (NEG-TRACE)
[2021-11-12 11:38] LABS: Basophils Percent Auto 0.6 % (0-2); Hematocrit 38.4 % (37.0-47.0); Hemoglobin 12.8 g/dl (12.0-16.0); Imm Gran Abs Auto 0.01 X10*3/uL (0.00-0.03); Imm Gran Pct Auto 0.2 % (0.0-0.4); Lymphocytes Percent Auto 42.1 % (20-40); Mean Corpuscular HGB Conc 33.3 g/dl (31.0-35.0); Mean Corpuscular Volume 90.1 fL (80.0-98.0); Mean Platelet Volume 10.9 fL (9.4-12.3); Monocytes Absolute Auto 0.5 X10*3/uL (0.1-1.2); Monocytes Percent Auto 9.4 % (2-11); Neutrophils Absolute Auto 2.3 x10*3/uL (2.0-8.3); Neutrophils Percent Auto 47.7 % (45-73); Platelet Count 290 X10*3/uL (160-400); Red Blood Count 4.26 X10*6/uL (4.20-5.50); White Blood Count 4.8 X10*3/uL (4.8-10.8)
[2021-11-12 12:01] LABS: Alanine Aminotransferase 18 U/L (0-31); Albumin Level 4.2 g/dL (3.5-5.0); Alkaline Phosphatase 95 U/L (39-117); Anion Gap 12 (12-20); Aspartate Amino Transferase 20 U/L (5-31); Bilirubin Total 0.4 mg/dL (0.0-1.0); Blood Urea Nitrogen 9 mg/dL (9-16); Calcium 9.7 mg/dL (8.4-10.2); Carbon Dioxide 28 mmol/L (22-29); Chloride 104 mmol/L (96-108); Cholesterol 246 mg/dL; Estimated Glomerular Filt Rate > 60; Glucose Fasting 90 mg/dL (60-99); HDL Cholesterol 70 mg/dL; LDL Cholesterol Calculated 152 mg/dl; Potassium 4.3 mmol/L (3.3-5.1); Sodium 140 mmol/L (135-145); Total Protein 7.5 g/dL (6.5-8.0); Triglycerides 123 mg/dL
[2021-11-12 12:03] LABS: Bacteria Urine 3+ /LPF; RBC Urine 0 /HPF (0); Squamous Epithelial Cell Urine 4+ /LPF
[2021-11-12 12:15] LABS: TSH reflex Free T4 1.89 uIU/mL (0.32-4.0); Vitamin D 25-OH Total 25.4 ng/mL (>30)
[2021-11-12 12:17] LABS: Erythrocyte Sedimentation Rate 25 MM/HR (0-20)
== END 2021-11-12 09:47 | disposition home or self-care (01) ==
LOC: HO.HMGCLDS 09:46
PROVIDERS: PCP Internal Medicine; Visit Provider Internal Medicine
DX: Z00.00 Encounter for general adult medical examination without abnormal findings (principal); E78.00 Pure hypercholesterolemia, unspecified; M51.36 Other intervertebral disc degeneration, lumbar region; E55.9 Vitamin D deficiency, unspecified
CPT/HCPCS: 36415; 80053; 80061; 81001; 82306; 84443; 85025; 85652; 87086

== ENCOUNTER 2022-01-13 06:01 | Outpatient (REF) | payer OTHER, SELFPAY ==
--- NOTE | ~2022-01-13 | FL_ITS ---
EXAMINATION: XR FLUOROSCOPY WITH IMAGES CLINICAL INFORMATION: Sacrococcygeal disorders. COMPARISON: None. TECHNIQUE: Fluoroscopy performed by Meg Sam. Fluoroscopy time: 0.2 minutes DAP: 1.51 Gycm2 Images: 1 FINDINGS: There is a single image revealing needle positioned along inferior right SI joint with minimal contrast seen opacifying the adjacent soft tissues. FL/FL guidance in treatment room IMPRESSION: Fluoroscopy was provided to referrer for pain management.
== END 2022-01-13 06:02 | disposition home or self-care (01) ==
LOC: HO.RADIR 06:01
PROVIDERS: Visit Provider Anesthesiology
DX: M53.3 Sacrococcygeal disorders, not elsewhere classified (principal); M46.1 Sacroiliitis, not elsewhere classified; G57.22 Lesion of femoral nerve, left lower limb
CPT/HCPCS: 27096; J3300; Q9967

== ENCOUNTER → 2022-01-16 09:58 | Outpatient (BNVA) | payer OTHER, SELFPAY | PROVIDERS: PCP Internal Medicine; Visit Provider Nurse Practitioner Family | DX: Z13.89 Encounter for screening for other disorder (principal) ==

== ENCOUNTER → 2022-03-02 12:50 | Outpatient (BNVA) | payer OTHER, SELFPAY | PROVIDERS: PCP Internal Medicine; Referring Provider Internal Medicine; Visit Provider Nurse Practitioner | DX: Z12.11 Encounter for screening for malignant neoplasm of colon (principal) | CPT/HCPCS: 99202 ==

== ENCOUNTER 2022-04-07 06:29 | Outpatient (REF) | payer OTHER, SELFPAY ==
--- NOTE | ~2022-04-07 | FL_ITS ---
EXAMINATION: XR FLUOROSCOPY WITH IMAGES CLINICAL INFORMATION: Sacral coccygeal disorder COMPARISON: May 15, 2022 TECHNIQUE: Fluoroscopy performed by Dr. Luigi Zambrano. Fluoroscopy time: 8.6 seconds DlP: 3.80 mGy Images: 1 FINDINGS: Brinkley and contrast seen overlying the right sacroiliac joint. FL/FL guidance in treatment room IMPRESSION: Intraoperative fluoroscopy for pain management procedure.
== END 2022-04-07 06:30 | disposition home or self-care (01) ==
LOC: HO.RADIR 06:29
PROVIDERS: Visit Provider Anesthesiology
DX: M53.3 Sacrococcygeal disorders, not elsewhere classified (principal); M51.36 Other intervertebral disc degeneration, lumbar region
CPT/HCPCS: 27096; J3300

== ENCOUNTER 2022-06-09 12:58 | Outpatient (REF) | payer OTHER, SELFPAY ==
--- NOTE | ~2022-06-09 | MM_ITS ---
EXAMINATION: MM SCREENING DIGITAL BREAST TOMOSYNTHESIS, BILATERAL CLINICAL INFORMATION: Screening. Asymptomatic. The lifetime risk of breast cancer based on the Tyrer-Cuzick Model is 22.2%. Additional annual screening with breast MRI may be of benefit in women with a score of 20% or greater. COMPARISON: Mammography: March 19, 2021 and studies dating back to March 17, 2014 TECHNIQUE: Digital breast tomosynthesis is performed in both the craniocaudal and mediolateral oblique views along with computer-aided detection (CAD). Synthesized 2D images are generated from the tomosynthesis. FINDINGS: The breasts are heterogeneously dense, which may obscure small masses (ACR BI-RADS breast composition Category c). There are no new significant masses, abnormal calcifications, or other abnormalities. MM/MM tomosynthesis screening BI IMPRESSION: No significant changes from prior exam. ASSESSMENT: BI-RADS 1: Negative RECOMMENDATION: Routine annual mammography screening. This patient's information was entered into a reminder system with a target due date for their next mammogram.
== END 2022-06-09 12:59 | disposition home or self-care (01) ==
LOC: HO.MAMMO 12:58
PROVIDERS: PCP Internal Medicine; Visit Provider Internal Medicine
DX: Z12.31 Encounter for screening mammogram for malignant neoplasm of breast (principal)
CPT/HCPCS: 77063; 77067

== ENCOUNTER 2022-07-10 15:30 | Outpatient (REF) | payer OTHER, SELFPAY ==
--- NOTE | ~2022-07-10 | XR_ITS ---
EXAMINATION: XR LEFT KNEE XR AP BILATERAL KNEE STANDING CLINICAL INFORMATION: Knee pain COMPARISON: Left knee 11/25/2018. TECHNIQUE: Left knee 2 views. One view AP bilateral knee standing. FINDINGS: AP BILATERAL KNEE STANDING: There is loss of medial compartment joint space both knees without bony erosive changes. The lateral compartment joint space bilaterally is normal. No loose body seen. No soft tissue swelling. There is discrepancy in leg length with right knee higher in position compared to left. LEFT KNEE: There is mild reduction in the patellofemoral compartment joint space with suprapatellar joint effusion. There is mild prepatellar soft tissue swelling. The medial and lateral compartment joint space is preserved. No bony erosive changes or loose body seen. There is no acute fracture. XR/XR knee standing BI IMPRESSION: 1. Mild suprapatellar joint effusion with loss of patellofemoral compartment joint space left knee. No acute fracture or loose body seen. Mild prepatellar soft tissue swelling. 2. Bilateral AP knee reveals discrepancy in the leg length with the right knee joint appearing higher compared to left side. No loose bodies or bony erosive changes seen in either knee joints.
--- NOTE | ~2022-07-10 | XR_ITS ---
EXAMINATION: XR LEFT KNEE XR AP BILATERAL KNEE STANDING CLINICAL INFORMATION: Knee pain COMPARISON: Left knee 11/25/2018. TECHNIQUE: Left knee 2 views. One view AP bilateral knee standing. FINDINGS: AP BILATERAL KNEE STANDING: There is loss of medial compartment joint space both knees without bony erosive changes. The lateral compartment joint space bilaterally is normal. No loose body seen. No soft tissue swelling. There is discrepancy in leg length with right knee higher in position compared to left. LEFT KNEE: There is mild reduction in the patellofemoral compartment joint space with suprapatellar joint effusion. There is mild prepatellar soft tissue swelling. The medial and lateral compartment joint space is preserved. No bony erosive changes or loose body seen. There is no acute fracture. XR/XR knee LT 2V IMPRESSION: 1. Mild suprapatellar joint effusion with loss of patellofemoral compartment joint space left knee. No acute fracture or loose body seen. Mild prepatellar soft tissue swelling. 2. Bilateral AP knee reveals discrepancy in the leg length with the right knee joint appearing higher compared to left side. No loose bodies or bony erosive changes seen in either knee joints.
== END 2022-07-10 15:31 | disposition home or self-care (01) ==
LOC: HO.HOSX 15:30
PROVIDERS: Visit Provider Physician Assistant
DX: M70.42 Prepatellar bursitis, left knee (principal); M25.561 Pain in right knee
CPT/HCPCS: 73560; 73565; 99202

== ENCOUNTER → 2022-07-15 09:25 | Outpatient (BNVA) | payer OTHER, SELFPAY | PROVIDERS: PCP Internal Medicine; Visit Provider Physician Assistant | DX: M70.42 Prepatellar bursitis, left knee (principal) | CPT/HCPCS: 99212 ==

== ENCOUNTER → 2022-07-17 09:04 | Outpatient (BNVA) | payer OTHER, SELFPAY | PROVIDERS: PCP Internal Medicine; Visit Provider Physician Assistant | DX: M70.42 Prepatellar bursitis, left knee (principal) | CPT/HCPCS: 99212 ==

== ENCOUNTER → 2022-07-23 13:03 | Outpatient (BNVA) | payer OTHER, SELFPAY | PROVIDERS: PCP Internal Medicine; Visit Provider Physician Assistant | DX: M70.42 Prepatellar bursitis, left knee (principal) | CPT/HCPCS: 99212 ==

== ENCOUNTER 2022-08-04 14:33 | Outpatient (REF) | payer OTHER, SELFPAY ==
--- NOTE | ~2022-08-04 | MR_ITS ---
EXAMINATION: MR KNEE WITHOUT CONTRAST, LEFT CLINICAL INFORMATION: Left knee pain, osteoarthritis. Patient reports injury with deep laceration COMPARISON: Radiographs 07/10/2022 TECHNIQUE: MRI of the knee without contrast was performed using routine sequences on a high-field scanner. FINDINGS: MENISCI: Medial Meniscus: Intact Lateral Meniscus: Intact LIGAMENTS: Cruciate: Intact Collateral: Intact EXTENSOR MECHANISM: Intact ARTICULAR CARTILAGE/BONE: Patellofemoral Compartment: Mild cartilage thinning and surface irregularity throughout the patellofemoral compartment Medial Compartment: Normal Lateral Compartment: Normal JOINT FLUID AND BURSAE: No joint effusion. Trace Barillas's cyst. Prepatellar subcutaneous edema with an elongated collection in the subcutaneous fat anteromedial to the patella with intrinsic T1 signal hyperintensity compatible with a hematoma. MR/MR knee LT wo con IMPRESSION: 1. Small subcutaneous hematoma anteromedial to the patella. 2. No meniscal tear. 3. Mild patellofemoral compartment osteoarthritis.
== END 2022-08-04 14:34 | disposition home or self-care (01) ==
LOC: HO.MRI 14:33
PROVIDERS: Visit Provider Physician Assistant
DX: M17.12 Unilateral primary osteoarthritis, left knee (principal)
CPT/HCPCS: 73721

== ENCOUNTER → 2022-08-06 12:46 | Outpatient (BNVA) | payer OTHER, SELFPAY | PROVIDERS: PCP Internal Medicine; Visit Provider Physician Assistant | DX: M70.42 Prepatellar bursitis, left knee (principal) | CPT/HCPCS: 99212 ==

== ENCOUNTER 2022-08-18 09:40 | Outpatient (REF) | payer OTHER, SELFPAY ==
--- NOTE | ~2022-08-18 | XR_ITS ---
EXAMINATION: XR HIP, RIGHT CLINICAL INFORMATION: Right hip pain. COMPARISON: None TECHNIQUE: Two views of the right hip. FINDINGS: Minimal bilateral hip degenerative joint changes are seen. There is no acute fracture or dislocation. The bony pelvis is intact. The soft tissues are unremarkable XR/XR hip RT w PEL1V IMPRESSION: Minimal bilateral hip osteoarthritis. No acute fracture.
== END 2022-08-18 09:41 | disposition home or self-care (01) ==
LOC: HO.HMGCX 09:40
PROVIDERS: PCP Internal Medicine; Visit Provider Nurse Practitioner Family
DX: M25.551 Pain in right hip (principal)
CPT/HCPCS: 73502

== ENCOUNTER → 2022-08-27 12:54 | Outpatient (BNVA) | payer OTHER, SELFPAY | PROVIDERS: PCP Internal Medicine; Visit Provider Nurse Practitioner Family | DX: G57.22 Lesion of femoral nerve, left lower limb (principal); M51.36 Other intervertebral disc degeneration, lumbar region; M17.0 Bilateral primary osteoarthritis of knee; M53.3 Sacrococcygeal disorders, not elsewhere classified; U07.0 Vaping-related disorder; Z87.891 Personal history of nicotine dependence; Z77.22 Contact with and (suspected) exposure to environmental tobacco smoke (acute) (chronic) | CPT/HCPCS: 99212 ==

== ENCOUNTER 2022-09-01 12:33 | Emergency (ER) | payer OTHER, SELFPAY ==
--- NOTE | ~2022-09-01 | CT_ITS ---
EXAMINATION: CT HEAD WITHOUT CONTRAST CLINICAL INFORMATION: Dizziness. History of injury in June COMPARISON: None TECHNIQUE: Contiguous axial imaging was performed from the skull base to vertex without intravenous administration of contrast. This CT examination was performed using dose optimization techniques as appropriate, variously including the following: *Automated exposure control *Adjustment of mA and/or kV according to patient size (this includes techniques or standardized protocols for targeted exams where dose is matched to indication/reason for exam; i.e. extremities or head) *Use of iterative reconstruction technique DLP: 506 mGy-cm FINDINGS: There is no acute intra-axial, extra-axial bleed, masses or midline shift. There is no acute infarction evolution. There is no edema. The lateral ventricles are symmetrical in size and configuration without enlargement. The varma to white matter differentiation maintained normal. Bone windows reveal no calvarial abnormality. There is no scalp soft tissue abnormality. CT/CT head/brain wo IV con IMPRESSION: No acute intracranial process seen
[2022-09-01 12:55] VITALS: BP 200/92; PULSE 95; RESP 18; TEMP 36.1; O2SAT 96; BMI 40.3
--- NOTE | 2022-09-01 13:05 | ED_ITS ---
HPI - General Adult General Chief complaint: General Medical <Félix Ji MD - Last Filed: 09/01/22 13:09> Stated complaint: Dizziness <Félix Ji MD - Last Filed: 09/01/22 13:09> Time Seen by Provider: 09/01/22 16:09 <Félix Ji MD - Last Filed: 09/01/22 13:09> Source: patient <GAVIN Hurley - Last Filed: 09/01/22 17:13> Mode of arrival: ambulatory <GAVIN Hurley - Last Filed: 09/01/22 17:13> Limitations: no limitations <GAVIN Hurley - Last Filed: 09/01/22 17:13> History of Present Illness HPI narrative: 52-year-old female presents to the ER for evaluation of high blood pressure, dizziness and headaches for the last 3 weeks. She states she had a traumatic injury at home resulting in chest wall impalement with a metal fence on June 28. She has had blood pressure issues since then. She states she has been keeping track of her blood pressure home and it is always high, usually 140 systolic to 180 systolic over 80s to 120s diastolic. She is not on any antihypertensive medicines. She follows with Dr. Mullen with plan to start on medicine soon. She went to Urgent Care today reporting dizziness and headaches associated with this high blood pressure. She denies any vision change or chest pain. She denies any weakness, numbness, tingling. She has been taking Excedrin migraine with minimal relief in her headache. <GAVIN Hurley - Last Filed: 09/01/22 17:13> complaint: High blood pressure, headache, dizziness <GAVIN Hurley - Last Filed: 09/01/22 17:13> Onset (ago): week(s) <GAVIN Hurley - Last Filed: 09/01/22 17:13> Location: head <GAVIN Hurley - Last Filed: 09/01/22 17:13> Radiation: non-radiation <GAVIN Hurley - Last Filed: 09/01/22 17:13> Severity: severe <GAVIN Hurley - Last Filed: 09/01/22 17:13> Severity scale (1-10): 9 <GAVIN Hurley - Last Filed: 09/01/22 17:13> Quality: aching and other (Throbbing) <GAVIN Hurley - Last Filed: 09/01/22 17:13> Pain Consistency: constant <GAVIN Hurley - Last Filed: 09/01/22 17:13> Relieving factors: none <GAVIN Hurley - Last Filed: 09/01/22 17:13> Exacerbating factors: none <GAVIN Hurley - Last Filed: 09/01/22 17:13> Associated symptoms: headaches and other (Dizziness) <GAVIN Hurley - Last Filed: 09/01/22 17:13> Treatments prior to arrival: NSAID <GAVIN Hurley - Last Filed: 09/01/22 17:13> Related Data Home medications: Home Medications Medication Instructions Recorded Confirmed acetaminophen-caffeine 500 mg-65 1 tab PO Q12H PRN Headache 12/09/20 08/16/22 mg tablet (Excedrin Tension Headache) oxycodone 15 mg tablet 15 mg PO Q6H PRN pain 08/27/22 Previous Rx's Medication Instructions Recorded nabumetone 500 mg tablet 500 mg PO BID #28 tabs 08/26/21 clotrimazole 10 mg frances 10 mg mucous membrane QID #56 tabs 12/25/21 peg 3350-electrolytes 236 240 ml PO Q10M 1 day #4,000 mL 03/02/22 gram-22.74 gram-6.74 gram-5.86 gram solution (Golytely) cetirizine 10 mg tablet 10 mg PO DAILY PRN for congestion 05/11/22 #90 caps [id number]-[id number]-[id number] 3.5 4 drp otic (ears) Q8H 7 days #10 mL 06/12/22 mg-10,000 unit/mL-1 % ear drops,susp acetaminophen 325 mg tablet 650 mg PO QID PRN pain 30 days 07/02/22 #240 tabs docusate sodium 100 mg capsule 100 mg PO BID PRN constipation 30 07/02/22 days #60 caps gabapentin 100 mg capsule 100 mg PO TID 30 days #90 caps 07/02/22 ibuprofen 800 mg tablet 800 mg PO TID PRN pain 30 days #90 07/02/22 tabs oxycodone 5 mg tablet 5 mg PO BID-TID PRN pain #60 tabs 07/02/22 lorazepam 0.5 mg tablet See Rx Instructions .Route 07/10/22 .COMPLEX anxiety 1 day #2 tabs escitalopram oxalate 20 mg tablet 20 mg PO DAILY 30 days #30 tabs 08/05/22 cyclobenzaprine 5 mg tablet 5 mg PO TID PRN muscle spasm 30 08/31/22 days #90 tabs hydroxyzine HCl 25 mg tablet 25 mg PO TID PRN anxiety 30 days 08/31/22 #90 tabs nortriptyline 25 mg capsule 25 mg PO BEDTIME 30 days #30 caps 08/31/22 oxycodone 10 mg tablet 10 mg PO Q6H pain 14 days #56 tabs 08/31/22 amlodipine 10 mg tablet (Norvasc) 10 mg PO DAILY #30 tabs 09/01/22 <Félix Ji MD - Last Filed: 09/01/22 13:09> Allergies/adverse reactions: Allergies Allergy/AdvReac Type Severity Reaction Status Date / Time cephalexin Allergy Severe Anaphylaxis Verified 09/01/22 11:11 Sulfa (Sulfonamide Allergy Unknown hives Verified 09/01/22 11:11 Antibiotics) sulfamethoxazole Allergy Unknown RASH Verified 09/01/22 11:11 [From BACTRIM] trimethoprim [From BACTRIM] Allergy Unknown RASH Verified 09/01/22 11:11 <Félix Ji MD - Last Filed: 09/01/22 13:09> Review of Systems Review of Systems: Constitutional: No Fever, No Chills ENT/Mouth: No sore throat, No Rhinorrhea Eyes: No vision changes Cardiovascular: No Chest Pain, No SOB Respiratory: No Cough, No Sputum Gastrointestinal: No Nausea, No Vomiting, No abdominal Pain Musculoskeletal: No joint pain, + Myalgias Skin: No Skin Lesions, No rash Neuro: No Weakness, No Numbness, + Dizziness, + Headache Psych: No Anxiety/Panic, No Depression Heme/Lymph: No Bruising, No Lymphadenopathy <GAVIN Hurley - Last Filed: 09/01/22 17:13> [facility] Past Medical History Medical History: Medical History Allergic rhinitis Back pain Environmental allergies Frequent headaches Hx of iron deficiency anemia Hyperglycemia Left leg pain Lesion of femoral nerve, left lower limb Lumbar degenerative disc disease Medial epicondylitis of right elbow Obesity (BMI 30-39.9) Pure hypercholesterolemia Restless leg syndrome Right elbow pain Sacroiliitis <Félix Ji MD - Last Filed: 09/01/22 13:09> Surgical History: Surgical History History of nasal surgery Hx of knee surgery Hx of shoulder surgery S/p bilateral myringotomy with tube placement Status post correction of deviated nasal septum <Félix Ji MD - Last Filed: 09/01/22 13:09> Family History Family History: Family History Mother Hypertension Father No problems noted. 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, 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) Hearing needs: No Vision needs: Yes (Glasses) <Félix Ji MD - Last Filed: 09/01/22 13:09> Physical Exam ED Vital Signs: Vital Signs - 24 hr 09/01/22 12:55 09/01/22 16:48 Temperature 96.9 F Pulse Rate 95 84 Respiratory Rate 18 18 Blood Pressure 200/92 H 175/90 H Pulse Oximetry 96 98 Oxygen Delivery Method Room Air BMI result Body Mass Index 40.3 <Félix Ji MD - Last Filed: 09/01/22 13:09> Vital Signs - 24 hr 09/01/22 12:55 09/01/22 16:48 Temperature 96.9 F Pulse Rate 95 84 Respiratory Rate 18 18 Blood Pressure 200/92 H 175/90 H Pulse Oximetry 96 98 Oxygen Delivery Method Room Air BMI result Body Mass Index 40.3 <GAVIN Hurley - Last Filed: 09/01/22 17:13> Appearance: Alert. Oriented X3. No acute distress. Eyes: Pupils equal, round and reactive to light. ENT: Pharynx normal. Neck: Normal inspection. Neck supple. Bilateral neck soft tissue tenderness and spasm. Normal range of motion. No midline tenderness. No nuchal rigidity. CVS: Normal heart rate and rhythm. Pulses normal. Respiratory: No respiratory distress. Breath sounds normal. Skin: Skin warm and dry. Normal skin color. Normal skin turgor. No rashes. Extremities: No lower extremity edema. Neuro: Oriented X 3. No motor deficit. No sensory deficit. Grossly normal, nonfocal. CN II-XII intact. <GAVIN Hurley - Last Filed: 09/01/22 17:13> Course Reevaluation(s) Reevaluation #1: 52 yo female presents to the ED with several weeks of dizziness. Patient had a fall in June with other traumatic injuries, but never had head CT for the head injury. The patient also states that her BP has been elevated since the accident. Has not had any other evaluation for her BP. No CP, CVA symptoms or other hypertensive emergency symptoms. <Félix Ji MD - Last Filed: 09/01/22 13:09> Time: 13:06 <Félix Ji MD - Last Filed: 09/01/22 13:09> Reevaluation #2: 52-year-old female presenting with headaches & dizziness associated with significantly elevated blood pressure. Sent here from urgent care for CT scan of her head after known trauma 2 months ago. On arrival to the ER blood pressure is 200/90. She has been keeping track of her blood pressure at home and has been anywhere from 140-180 systolic. She is on any antihypertensive medications. She denies any chest pain or vision changes. Patient was given oral dose of Norvasc 10 mg with improvement in her blood pressure was any 5/90. Headache is improved. At this time we will start her on 10 mg of Norvasc daily and have her follow-up with her primary care doctor for further management of her hypertension. She was advised on the dash eating plan. She will keep track of her blood pressure at home and return precautions were discussed. Stable for discharge home. Patient agrees with plan all questions were answered. <GAVIN Hurley - Last Filed: 09/01/22 17:13> Medications Administered Discontinued Medications Generic Name Dose Route Start Last Admin Trade Name Freq PRN Reason Stop Dose Admin Amlodipine Besylate 10 mg 09/01/22 16:09 09/01/22 16:47 Amlodipine Besylate 10 Mg Tablet PO 09/01/22 16:10 10 mg ONCE ONE Administration Protocol <Félix Ji MD - Last Filed: 09/01/22 13:09> Medications Administered Discontinued Medications Generic Name Dose Route Start Last Admin Trade Name Freq PRN Reason Stop Dose Admin Amlodipine Besylate 10 mg 09/01/22 16:09 09/01/22 16:47 Amlodipine Besylate 10 Mg Tablet PO 09/01/22 16:10 10 mg ONCE ONE Administration Protocol <GAVIN Hurley - Last Filed: 09/01/22 17:13> Critical Care Time Critical Care Time Critical Care Time: No <GAVIN Hurley - Last Filed: 09/01/22 17:13> Discharge Plan Discharge Clinical Impression: Hypertension <Félix Ji MD - Last Filed: 09/01/22 13:09> Patient Disposition: Home, Self-Care <Félix Ji MD - Last Filed: 09/01/22 13:09> Instructions: DASH Eating Plan (ED), Hypertension (ED) <Félix Ji MD - Last Filed: 09/01/22 13:09> Additional Instructions: Your CT scan today was normal. Your blood pressure improved with oral amlodipine. Take this once per day. Monitor your blood pressure a couple of hours after you take it. Keep a record for your doctor. Follow-up with your doctor for further management of your hypertension medications. Take Motrin and Tylenol as needed for headaches. If you develop new or worsening symptoms call 911 or come back to the ER for further evaluation. <Félix Ji MD - Last Filed: 09/01/22 13:09> Prescriptions: New amlodipine [Norvasc] 10 mg tablet 10 mg PO DAILY Qty: 30 0RF No Action cetirizine 10 mg tablet 10 mg PO DAILY PRN (Reason: for congestion) Qty: 90 2RF frmzbyxf-jlflipmjv-GZ 3.5-10,000-1 mg/mL-unit/mL-% drops,suspension 4 drp otic (ears) Q8H 7 Days Qty: 10 0RF oxycodone 5 mg tablet 5 mg PO BID-TID PRN (Reason: pain) Qty: 60 0RF acetaminophen 325 mg tablet 650 mg PO QID PRN (Reason: pain) 30 Days Qty: 240 6RF gabapentin 100 mg capsule 100 mg PO TID 30 Days Qty: 90 3RF ibuprofen 800 mg tablet 800 mg PO TID PRN (Reason: pain) 30 Days Qty: 90 3RF Rx Instructions: Take with food docusate sodium 100 mg capsule 100 mg PO BID PRN (Reason: constipation) 30 Days Qty: 60 3RF lorazepam 0.5 mg tablet See Rx Instructions .ROUTE .COMPLEX 1 Days Qty: 2 0RF Rx Instructions: Take 1 tablet 30 minutes before procedure as needed for anxiety. May repeat x 1 dose after 10 to 15 minutes if needed. escitalopram oxalate 20 mg tablet 20 mg PO DAILY 30 Days Qty: 30 3RF oxycodone 10 mg tablet 10 mg PO Q6H 14 Days Qty: 56 0RF Rx Instructions: Dose and dosing are being reduced slowly, per previous plan/discussion cyclobenzaprine 5 mg tablet 5 mg PO TID PRN (Reason: muscle spasm) 30 Days Qty: 90 0RF hydroxyzine HCl 25 mg tablet 25 mg PO TID PRN (Reason: anxiety) 30 Days Qty: 90 1RF nortriptyline 25 mg capsule 25 mg PO BEDTIME 30 Days Qty: 30 2RF Excedrin Tension Headache 500-65 mg Tablet 1 tab PO Q12H PRN (Reason: Headache) clotrimazole 10 mg frances 10 mg mucous membrane QID Qty: 56 0RF nabumetone 500 mg tablet 500 mg PO BID Qty: 28 0RF peg 3350-electrolytes [Golytely] 236-22.74-6.74 -5.86 gram recon soln 240 ml PO Q10M 1 Days Qty: 4000 0RF Rx Instructions: until fecal effluent is clear; do not exceed a total volume of 2,000 mL oxycodone 15 mg tablet 15 mg PO Q6H PRN (Reason: pain) <Félix Ji MD - Last Filed: 09/01/22 13:09> Interventions: ED Discharge Assessment Last Done: 09/01/22 17:03 <Félix Ji MD - Last Filed: 09/01/22 13:09> Discharge Date/Time: 09/01/22 17:05 <Félix Ji MD - Last Filed: 09/01/22 13:09>
[2022-09-01] MEDS: amLODIPine Besylate 10 MG TABLET PO (16:47)
[2022-09-01 16:48] VITALS: BP 175/90; PULSE 84; RESP 18; O2SAT 98
== END 2022-09-01 17:05 | disposition home or self-care (01) ==
PROVIDERS: Emergency Provider Emergency Medicine; PCP Internal Medicine
DX: R42 Dizziness and giddiness (principal); I10 Essential (primary) hypertension; Z79.899 Other long term (current) drug therapy
CPT/HCPCS: 70450; 99283; 99284

== ENCOUNTER 2022-12-08 12:55 | Outpatient (REF) | payer OTHER, SELFPAY ==
--- NOTE | ~2022-12-08 | MR_ITS ---
EXAMINATION: MR KNEE WITHOUT CONTRAST, LEFT CLINICAL INFORMATION: Left knee pain. Effusion. Swelling. Meniscectomy approximately 35 years ago. COMPARISON: Left knee MRI dated 08/04/2022. TECHNIQUE: MRI of the knee without contrast was performed using routine sequences on a high-field scanner. FINDINGS: MENISCI: Medial Meniscus: Minimal degenerative intrasubstance signal within the posterior body and posterior horn, increased when compared to the prior examination. No articular surface tearing. Lateral Meniscus: Intact. LIGAMENTS: Cruciate: Intact. Collateral: Intact. EXTENSOR MECHANISM: Intact quadriceps and patellar tendons. Normal patellofemoral alignment. Resolution of the previously seen soft tissue hematoma. ARTICULAR CARTILAGE/BONE: Patellofemoral Compartment: Patellar median ridge and medial patellar facet articular cartilage signal heterogeneity with minimal subchondral cystic change. Medial trochlear articular cartilage fissuring. Tiny marginal osteophytes. Findings are slightly more prominent when compared to the prior examination. Medial Compartment: Intact articular cartilage. Lateral Compartment: Intact articular cartilage. JOINT FLUID AND BURSAE: Small joint effusion and small Barillas's cyst. MR/MR knee LT wo con IMPRESSION: 1. Minimal degenerative intrasubstance signal within the medial meniscus posterior body and posterior horn, increased when compared to the prior examination. No articular surface meniscal tear. 2. Mild patellofemoral osteoarthritis, slightly more prominent when compared to the prior examination. Small joint effusion and small Barillas's cyst.
== END 2022-12-08 12:56 | disposition home or self-care (01) ==
LOC: HO.MRI 12:55
PROVIDERS: PCP Internal Medicine; Visit Provider Internal Medicine
DX: M25.462 Effusion, left knee (principal); M25.562 Pain in left knee; Z91.81 History of falling
CPT/HCPCS: 73721

== ENCOUNTER → 2022-12-17 11:04 | Outpatient (BNVA) | payer OTHER, SELFPAY | PROVIDERS: PCP Internal Medicine; Visit Provider Nurse Practitioner Family | DX: Z45.42 Encounter for adjustment and management of neurostimulator (principal) | CPT/HCPCS: 99211 ==

== ENCOUNTER → 2023-01-20 11:31 | Outpatient (BNVA) | payer OTHER, SELFPAY | PROVIDERS: PCP Internal Medicine; Visit Provider Physician Assistant | DX: M70.42 Prepatellar bursitis, left knee (principal) | CPT/HCPCS: 20610; 99212; J1040 ==

== ENCOUNTER 2023-03-02 09:34 | Outpatient (REF) | payer OTHER, SELFPAY ==
--- NOTE | ~2023-03-02 | XR_ITS ---
EXAMINATION: Right shoulder and left knee. Clinical indications: Pain left knee and right shoulder. TECHNIQUE: Right shoulder 4 views and left knee 2 views. FINDINGS: Left knee: The tricompartment joint space is maintained normal. No visible acute fracture, dislocation or subluxation seen. No bony erosive changes. No loose bodies. The soft tissues are normal. Right shoulder: There is no visible acute fracture, dislocation or subluxation seen. No bony erosive changes. The soft tissues are normal. XR/XR shoulder RT min 2V IMPRESSION: 1. Unremarkable left knee exam. 2. Unremarkable right shoulder exam.
--- NOTE | ~2023-03-02 | XR_ITS ---
EXAMINATION: Right shoulder and left knee. Clinical indications: Pain left knee and right shoulder. TECHNIQUE: Right shoulder 4 views and left knee 2 views. FINDINGS: Left knee: The tricompartment joint space is maintained normal. No visible acute fracture, dislocation or subluxation seen. No bony erosive changes. No loose bodies. The soft tissues are normal. Right shoulder: There is no visible acute fracture, dislocation or subluxation seen. No bony erosive changes. The soft tissues are normal. XR/XR knee LT 2V IMPRESSION: 1. Unremarkable left knee exam. 2. Unremarkable right shoulder exam.
== END 2023-03-02 09:35 | disposition home or self-care (01) ==
LOC: HO.XRAY 09:34
PROVIDERS: Visit Provider Nurse Practitioner Family
DX: M25.511 Pain in right shoulder (principal); M25.562 Pain in left knee
CPT/HCPCS: 73030; 73560

== ENCOUNTER 2023-03-22 03:55 | Inpatient (IN) | payer OTHER, SELFPAY ==
[2023-03-22] VITALS (7 sets, daily range): BP systolic 124–150; BP diastolic 65–89; PULSE 96–115; RESP 16–20; TEMP 36.4–37.3; O2SAT 93–99; BMI 38.1; BMI 38.9
--- NOTE | ~2023-03-22 | CT_ITS ---
CT/CT abdomen pelvis w IV con IMPRESSION: 1. Abnormal study. Marked mural thickening and pericolonic inflammatory changes are noted involving the right-sided colon starting from the level of the cecum to the hepatic flexure without evidence of any bowel obstruction, perforation or abscess formation. There are few shotty adjacent mesenteric lymph nodes noted. The appearance is nonspecific, may represent changes secondary to infection, inflammation as well as ischemia. Further differentiation cannot be made based on this imaging appearance alone. 2. Incidental note is also made of presence of mildly distended gallbladder associated with gallstones, diffuse fatty replacement of the pancreas, mild diffuse hepatic steatosis and bilateral sub-5 mm nonobstructing renal calculi and bilateral renal cortical cysts and presence of a linear partially included radiopaque foreign body within the soft tissues at the proximal left thigh. This critical result was discussed with Dr. Carter at 7:55 AM on 03/22/2023 and it was ascertained that the content and urgency of the report was understood at the time of direct communication. Fleischner guidelines were followed. EXAMINATION: CT ABDOMEN AND PELVIS WITH CONTRAST CLINICAL INFORMATION: Abdominal pain. COMPARISON: CT of the pelvis done on 07/28/2017. TECHNIQUE: Multidetector volumetric images were obtained from the superior aspect of the liver through the pubic symphysis following administration 85 mL of Omnipaque 350 intravenous contrast. Sagittal and coronal reformatted images were obtained on the technologist's workstation. Oral contrast: No This CT examination was performed using dose optimization techniques as appropriate, variously including the following: *Automated exposure control *Adjustment of mA and/or kV according to patient size (this includes techniques or standardized protocols for targeted exams where dose is matched to indication/reason for exam; i.e. extremities or head) *Use of iterative reconstruction technique DLP: 959 mGy-cm FINDINGS: LUNG BASES: Mild hypoventilatory changes are present at both lung bases. LIVER, GALLBLADDER, AND BILIARY TREE: Mild diffuse hepatic steatosis without any CT features of superimposed discrete focal liver lesion. The gallbladder is mildly distended, shows radiopaque calculi without evidence of wall thickening or pericholecystic fluid. No evidence of any biliary obstruction. PANCREAS: Diffuse fatty replacement of the pancreas. SPLEEN: Unremarkable. ADRENAL GLANDS: Unremarkable. KIDNEYS AND URETERS: The kidneys are normal in size, shape, and attenuation. No hydronephrosis, hydroureter, or calculi seen. No perinephric stranding. Incidental note is made of bilateral renal cortical cysts and sub-5 mm nonobstructing bilateral renal calculi. BLADDER: Unremarkable. GASTROINTESTINAL TRACT: Marked mural thickening and pericolonic inflammatory changes are noted involving the right-sided colon starting from the level of the cecum to the hepatic flexure. No evidence of any perforation, abscess formation, or bowel obstruction is seen. The terminal ileum, ileocecal junction and the small bowel loops and the remainder of the large bowel loops are otherwise unremarkable. The stomach appear decompressed. Small sliding hiatal hernia is noted. A few shotty mesenteric lymph nodes are present at right lower abdomen. ABDOMINAL WALL: No significant hernia is appreciated. LYMPH NODES: Normal. VASCULAR: Mild calcific atherosclerotic disease of the distal abdominal aorta without aneurysm formation. PELVIC VISCERA: There is no pelvic mass present. No evidence of any free fluid and/or free air. OSSEOUS STRUCTURES: Unremarkable. Incidental note is made of a partially included linear radiopaque foreign body within the soft tissues at the proximal left thigh, for which clinical correlation is recommended.
--- NOTE | ~2023-03-22 | CT_ITS ---
EXAMINATION: CT ABDOMEN AND PELVIS WITHOUT CONTRAST CLINICAL INFORMATION: Follow-up worsening pain COMPARISON: CT abdomen pelvis 03/22/2023 TECHNIQUE: Multidetector volumetric imaging was performed from the superior aspect of the liver through the pubic symphysis. Sagittal and coronal reformatted images were obtained on the technologist's workstation. This CT examination was performed using dose optimization techniques as appropriate, variously including the following: *Automated exposure control *Adjustment of mA and/or kV according to patient size (this includes techniques or standardized protocols for targeted exams where dose is matched to indication/reason for exam; i.e. extremities or head) *Use of iterative reconstruction technique DLP: 981 mGy-cm FINDINGS: LUNG BASES: There is mild atelectatic changes both lung bases with small right loculated pleural effusion or thickening. Heart size is normal. LIVER, GALLBLADDER, AND BILIARY TREE: The liver is normal in size, shape, and attenuation. No focal hepatic lesion or biliary ductal dilatation is present. The gallbladder is mildly distended with a solitary radiopaque 1.4 cm round stone. No wall thickening or pericholecystic fluid collection. PANCREAS: Unremarkable. SPLEEN: Unremarkable. ADRENAL GLANDS: Unremarkable. KIDNEYS AND URETERS: The kidneys are normal in size, shape, and attenuation. There are bilateral 5 mm and less nonobstructing renal calculi without caliectasis or hydronephrosis. There are small cortical hypodensities likely small cysts. BLADDER: Unremarkable. GASTROINTESTINAL TRACT: There is moderate mural thickening involving mid ascending colon with colonic distention, mucosal irregularity and pericolic fat stranding more severely of infection or inflammatory process. There is no free air to suspect or perforation. There is no abscess either. There is mild proximal prominence of cecum. Visualized small bowel loops and the stomach is unremarkable. ABDOMINAL WALL: No significant hernia is appreciated. LYMPH NODES: Normal. VASCULAR: Unremarkable. PELVIC VISCERA: There is a tiny free fluid in the cul-de-sac. The uterus is anteverted and appears unremarkable. No adnexal mass or abnormal lymphadenopathy. OSSEOUS STRUCTURES: No aggressive lytic or sclerotic process seen. CT/CT abdomen pelvis wo IV con IMPRESSION: 1. Moderate mural thickening involving mid ascending colon with pericolic fat stranding and mild distention of cecum. There is no free air to suspect any perforation or abscess. Findings are most suggestive of inflammatory or infectious bowel etiology. Underlying colonic lesion is considered less likely however a follow-up can be performed with endoscopy or a CT in 3-4 weeks 2. Bilateral nonobstructive renal calculi. 3. Cholelithiasis without wall thickening or pericholecystic fluid collection. 4. Small free fluid in the cul-de-sac. 5. Bibasilar atelectasis with small right loculated pleural effusion or thickening. Fleischner guidelines were followed.
--- NOTE | ~2023-03-22 | CT_ITS ---
EXAMINATION: CT ABDOMEN AND PELVIS WITH CONTRAST CLINICAL INFORMATION: Worsening abdominal pain. Colitis. COMPARISON: Previous CT most recent 03/23/2023 TECHNIQUE: Multidetector volumetric images were obtained from the superior aspect of the liver through the pubic symphysis following administration 85 mL of Omnipaque 350 intravenous contrast. Sagittal and coronal reformatted images were obtained on the technologist's workstation. Oral contrast: Yes This CT examination was performed using dose optimization techniques as appropriate, variously including the following: *Automated exposure control *Adjustment of mA and/or kV according to patient size (this includes techniques or standardized protocols for targeted exams where dose is matched to indication/reason for exam; i.e. extremities or head) *Use of iterative reconstruction technique DLP: 753 mGy-cm FINDINGS: LUNG BASES: The visualized lung bases are unremarkable. LIVER, GALLBLADDER, AND BILIARY TREE: Enlarged fatty liver. The gallbladder is slightly enlarged measuring 5 x 5 x 10 cm. There is a gallstone in the gallbladder. No biliary duct dilatation. PANCREAS: Fatty infiltration of the pancreas. Pancreas is otherwise normal. SPLEEN: Unremarkable. ADRENAL GLANDS: Unremarkable. KIDNEYS AND URETERS: Small bilateral renal stones. No hydronephrosis. Small right renal cyst. No imaging follow-up recommended. BLADDER: Unremarkable. GASTROINTESTINAL TRACT: There is mild dilatation and wall thickening of the cecum and proximal right colon. This appears decreased or improved compared to 03/23/2023 exam. No evidence of obstruction or megacolon perforation or abscess. Fluid-filled small bowel. Normal appendix. ABDOMINAL WALL: Small umbilical hernia containing fat. LYMPH NODES: Normal. VASCULAR: Unremarkable. PELVIC VISCERA: Unremarkable. OSSEOUS STRUCTURES: Unremarkable. CT/CT abdomen pelvis w IV con IMPRESSION: Improved colitis of the cecum and proximal right colon from 03/23/2023 exam. Enlarged fatty liver. Slightly enlarged gallbladder and gallstones. These findings are similar to prior exam. Bilateral small renal stones.. Fleischner guidelines were followed.
--- NOTE | 2023-03-22 04:19 | ED_ITS ---
HPI - Abdominal Pain General Chief Complaint: Abdominal Pain Stated Complaint: throwing up Time Seen by Provider: 03/22/23 04:08 History of Present Illness HPI narrative: Patient is a 52-year-old female presents today with having abdominal pain since noon the pain is epigastric and diffuse over the entire abdomen. Patient denies any fever chills. No focal weakness. No history of similar pain of past. No chest pain or shortness of breath. Patient denies any pain on urination. Saleem carranza denies any coughing congestion. Denies any change in bowel movement. Positive nausea vomiting. Vomiting mostly consistent with food. No abdominal surgery in the past. Related Data Home Medications Medication Instructions Recorded Confirmed acetaminophen-caffeine 500 mg-65 1 tab PO Q12H PRN Headache 12/09/20 01/20/23 mg tablet (Excedrin Tension Headache) Previous Rx's Medication Instructions Recorded peg 3350-electrolytes 236 240 ml PO Q10M 1 day #4,000 mL 03/02/22 gram-22.74 gram-6.74 gram-5.86 gram solution (Golytely) acetaminophen 325 mg tablet 650 mg PO QID PRN pain 30 days 07/02/22 #240 tabs ibuprofen 800 mg tablet 800 mg PO TID PRN pain 30 days #90 07/02/22 tabs oxycodone 5 mg tablet 5 mg PO BID-TID PRN pain #60 tabs 07/02/22 escitalopram oxalate 20 mg tablet 20 mg PO DAILY 30 days #30 tabs 12/01/22 nortriptyline 25 mg capsule 25 mg PO BEDTIME 30 days #30 caps 12/01/22 docusate sodium 100 mg capsule 100 mg PO BID PRN constipation 30 12/06/22 days #60 caps amlodipine 10 mg tablet (Norvasc) 10 mg PO DAILY 30 days #90 tabs 03/02/23 cetirizine 10 mg tablet 10 mg PO DAILY PRN for congestion 03/02/23 #90 caps cyclobenzaprine 5 mg tablet 5 mg PO TID PRN for muscle spasm 03/02/23 #90 tabs hydroxyzine HCl 25 mg tablet 25 mg PO TID PRN for anxiety #90 03/02/23 tabs losartan 50 mg tablet 50 mg PO DAILY 30 days #90 tabs 03/09/23 oxycodone 10 mg tablet 10 mg PO Q8H pain 14 days #42 tabs 03/15/23 Allergies Allergy/AdvReac Type Severity Reaction Status Date / Time cephalexin Allergy Severe Anaphylaxis Verified 03/02/23 09:06 Sulfa (Sulfonamide Allergy Unknown hives Verified 03/02/23 09:06 Antibiotics) sulfamethoxazole Allergy Unknown RASH Verified 03/02/23 09:06 [From BACTRIM] trimethoprim [From BACTRIM] Allergy Unknown RASH Verified 03/02/23 09:06 Review of Systems Review of Systems Positive abdominal pain Yes all other systems are reviewed and are negative [facility] Past Medical History Attestation statement: The following information was validated with the patient. Medical History Allergic rhinitis Back pain Benign essential hypertension Environmental allergies Frequent headaches Hx of iron deficiency anemia Hyperglycemia Left leg pain Lesion of femoral nerve, left lower limb Lumbar degenerative disc disease Medial epicondylitis of right elbow Obesity (BMI 30-39.9) Pure hypercholesterolemia Restless leg syndrome Right elbow pain Sacroiliitis Surgical History History of nasal surgery Hx of knee surgery Hx of shoulder surgery S/p bilateral myringotomy with tube placement Status post correction of deviated nasal septum Family History Family History Mother Hypertension Father No problems noted. Social History Social History Housing: House Are you a primary healthcare economics manager to a significant other at home: No Do you presently have visiting nurse or other home services: No Alcohol intake: never Patient Tobacco Use Status: Former Tobacco user Tobacco use type: Cigarette Smoked in Last 30 Days: Yes e-Cigarette/Vaping Use: Currently Using Second Hand Smoke Exposure: Yes Use of substances other than those prescribed or required for medical reasons: No Advance Directives: No Advance Directives Information Provided: Yes Patient : No service: No Current occupational status: employed 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 Oriented X3. No acute distress. Eyes: Pupils equal, round and reactive to light. ENT: Pharynx normal. Neck: Normal inspection. Neck supple. No lymph nodes noted. No crepitus CVS: Normal heart rate and rhythm. Pulses normal. Normal S1 and S2 Respiratory: No respiratory distress. Breath sounds normal. No Wheezing. No rales Abdomen: Soft and nontender. No rigidity. No distention. good BS x4 Skin: Skin warm and dry. Normal skin color. Normal skin turgor. Extremities: No lower extremity edema. Neurovascular intact to all extremities. No Lacerations. No Rash Neuro: Oriented X 3. No motor deficit. No sensory deficit. Moving all extermities. No slurred speech Medical Decision Making Medical Decision Making [facility] Narrative: Patient complained of diffuse abdominal pain nausea vomiting. LFT showed slightly elevated alk-phos slightly elevated AST. CT scan of the abdomen is currently pending given IV fluids given nausea and pain medication. Currently i n stable condition. Currently pending CT scan results. Patient's lipase is 5 unlikely to have pancreatitis Differential Diagnosis Differential Diagnoses: The differential diagnosis associated with the presentation includes Biliary colic, cholecystitis, pancreatitis, diverticulitis, kidney stone, abscess, perforation Lab Data [facility] Lab Attestation statement: I reviewed the patient's lab results. 03/22/23 04:32 03/22/23 05:50 Labs: Lab Results 03/22/23 03/22/23 Range/Units 04:32 05:50 WBC 13.7 H (4.8-10.8) X10*3/uL RBC 4.51 (4.20-5.50) X10*6/uL Hgb 13.3 (12.0-16.0) g/dl Hct 39.4 (37.0-47.0) % MCV 87.4 (80.0-98.0) fL MCH 29.5 (27.0-33.0) pg MCHC 33.8 (31.0-35.0) g/dl RDW 14.6 (11.0-16.0) % Plt Count 358 (160-400) X10*3/uL MPV 10.3 (9.4-12.3) fL Immature Gran % (Auto) 0.4 (0.0-0.4) % Neut % (Auto) 83.1 H (45-73) % Lymph % (Auto) 8.7 L (20-40) % [place] % (Auto) 6.8 (2-11) % Eos % (Auto) 0.4 (0-4) % Baso % (Auto) 0.6 (0-2) % Lymph # (Auto) 1.2 (1.2-4.9) X10*3/uL [place] # (Auto) 0.9 (0.1-1.2) X10*3/uL Eos # (Auto) 0.1 (0.0-0.4) X10*3/uL Baso # (Auto) 0.1 (0.0-0.2) X10*3/uL Abs Immat Gran (auto) 0.05 H (0.00-0.03) X10*3/uL Absolute Neuts (auto) 11.4 H (2.0-8.3) x10*3/uL Absolute Nucleated RBC 0.000 (0.0-0.012) X10*3/uL Nucleated RBC % (auto) 0.0 (0.0-0.2) /100WBC Sodium 142 (135-145) mmol/L Potassium 3.7 (3.3-5.1) mmol/L Chloride 107 (96-108) mmol/L Carbon Dioxide 24 (22-29) mmol/L Anion Gap 15 (12-20) BUN 7 L (9-16) mg/dL Creatinine 0.81 (0.5-1.4) mg/dL Estim Creat Clear Calc 93.8 Estimated GFR > 60 Random Glucose 123 H (60-115) mg/dL Calcium 9.2 (8.4-10.2) mg/dL Total Bilirubin 0.7 (0.0-1.0) mg/dL Direct Bilirubin 0.2 (0.0-0.5) mg/dL AST 27 (5-31) U/L ALT 43 H (0-31) U/L Alkaline Phosphatase 136 H (39-117) U/L Total Protein 7.2 (6.5-8.0) g/dL Albumin 4.3 (3.5-5.0) g/dL Lipase 5 L (8-78) U/L Chronic Conditions Patient?s care impacted by: Hypertension Medications Administered Discontinued Medications Generic Name Dose Route Start Last Admin Trade Name Freq PRN Reason Stop Dose Admin Hydromorphone HCl 0.5 mg 03/22/23 04:17 03/22/23 04:35 Hydromorphone Hcl 1 Mg/Ml Syringe IVPUSH 03/22/23 04:18 0.5 mg ONCE ONE Administration Protocol Hydromorphone HCl 0.5 mg 03/22/23 06:01 03/22/23 06:06 Hydromorphone Hcl 0.5 Mg/0.5 Ml Syringe IVPUSH 03/22/23 06:02 0.5 mg ONCE ONE Administration Protocol Sodium Chloride 1,000 mls @ 999 mls/hr 03/22/23 04:30 03/22/23 05:37 Ns IV 03/22/23 05:30 Infused .Q1H1M JOSH Infusion Ondansetron HCl 4 mg 03/22/23 04:17 03/22/23 04:35 Ondansetron Hcl 4 Mg/2 Ml Vial IVPUSH 03/22/23 04:18 4 mg ONCE ONE Administration Discharge Plan Discharge Clinical Impression: Abdominal pain Patient Disposition: Still a Patient Prescriptions: No Action oxycodone 5 mg tablet 5 mg PO BID-TID PRN (Reason: pain) Qty: 60 0RF Hold Instructions: Doctor's Order acetaminophen 325 mg tablet 650 mg PO QID PRN (Reason: pain) 30 Days Qty: 240 6RF ibuprofen 800 mg tablet 800 mg PO TID PRN (Reason: pain) 30 Days Qty: 90 3RF Rx Instructions: Take with food nortriptyline 25 mg capsule 25 mg PO BEDTIME 30 Days Qty: 30 2RF escitalopram oxalate 20 mg tablet 20 mg PO DAILY 30 Days Qty: 30 3RF docusate sodium 100 mg capsule 100 mg PO BID PRN (Reason: constipation) 30 Days Qty: 60 3RF amlodipine [Norvasc] 10 mg tablet 10 mg PO DAILY 30 Days Qty: 90 3RF cetirizine 10 mg tablet 10 mg PO DAILY PRN (Reason: for congestion) Qty: 90 2RF hydroxyzine HCl 25 mg tablet 25 mg PO TID PRN (Reason: for anxiety) Qty: 90 1RF cyclobenzaprine 5 mg tablet 5 mg PO TID PRN (Reason: for muscle spasm) Qty: 90 0RF losartan 50 mg tablet 50 mg PO DAILY 30 Days Qty: 90 2RF oxycodone 10 mg tablet 10 mg PO Q8H 14 Days Qty: 42 0RF Excedrin Tension Headache 500-65 mg Tablet 1 tab PO Q12H PRN (Reason: Headache) peg 3350-electrolytes [Golytely] 236-22.74-6.74 -5.86 gram recon soln 240 ml PO Q10M 1 Days Qty: 4000 0RF Rx Instructions: until fecal effluent is clear; do not exceed a total volume of 2,000 mL
--- NOTE | 2023-03-22 04:19 | ECG_ITS ---
Test Reason : ABD PAIN Blood Pressure : / mmHG Vent. Rate : 107 BPM Atrial Rate : 107 BPM P-R Int : 166 ms QRS Dur : 056 ms QT Int : 340 ms P-R-T Axes : 046 022 -16 degrees QTc Int : 453 ms Sinus tachycardia Low voltage QRS Septal infarct , age undetermined ST & T wave abnormality, consider anterior ischemia Abnormal ECG No previous ECGs available Referred By: Anahi Cedillo Electronically Signed By:NANCY SMITH MD
[2023-03-22] MEDS: HYDROmorphone HCl 1 MG/ML SYRINGE 0.5 MG IVPUSH (04:35)
[2023-03-22] MEDS: ondansetron HCL 4 MG/2 ML VIAL IVPUSH (04:35)
[2023-03-22] MEDS: 0.9 % Sodium Chloride 1,000 ML 999 ML IV (04:36)
[2023-03-22 04:37] LABS: Basophils Absolute Auto 0.1 X10*3/uL (0.0-0.2); Basophils Percent Auto 0.6 % (0-2); Eosinophils Absolute Auto 0.1 X10*3/uL (0.0-0.4); Eosinophils Percent Auto 0.4 % (0-4); Hematocrit 39.4 % (37.0-47.0); Hemoglobin 13.3 g/dl (12.0-16.0); Imm Gran Abs Auto 0.05 X10*3/uL (0.00-0.03); Imm Gran Pct Auto 0.4 % (0.0-0.4); Lymphocytes Absolute Auto 1.2 X10*3/uL (1.2-4.9); Lymphocytes Percent Auto 8.7 % (20-40); MANUAL DIFF FLAG NO; Mean Corpuscular HGB Conc 33.8 g/dl (31.0-35.0); Mean Corpuscular Hemoglobin 29.5 pg (27.0-33.0); Mean Corpuscular Volume 87.4 fL (80.0-98.0); Mean Platelet Volume 10.3 fL (9.4-12.3); Monocytes Absolute Auto 0.9 X10*3/uL (0.1-1.2); Monocytes Percent Auto 6.8 % (2-11); Neutrophils Absolute Auto 11.4 x10*3/uL (2.0-8.3); Neutrophils Percent Auto 83.1 % (45-73); Platelet Count 358 X10*3/uL (160-400); Red Blood Count 4.51 X10*6/uL (4.20-5.50); Red Cell Distribution Width 14.6 % (11.0-16.0); White Blood Count 13.7 X10*3/uL (4.8-10.8)
[2023-03-22] MEDS: HYDROmorphone HCl 0.5 MG/0.5 ML SYRINGE IVPUSH ×2 (06:06→08:32)
[2023-03-22 06:11] LABS: Alanine Aminotransferase 43 U/L (0-31); Albumin Level 4.3 g/dL (3.5-5.0); Alkaline Phosphatase 136 U/L (39-117); Anion Gap 15 (12-20); Aspartate Amino Transferase 27 U/L (5-31); Bilirubin Direct 0.2 mg/dL (0.0-0.5); Bilirubin Total 0.7 mg/dL (0.0-1.0); Blood Urea Nitrogen 7 mg/dL (9-16); Calcium 9.2 mg/dL (8.4-10.2); Carbon Dioxide 24 mmol/L (22-29); Chloride 107 mmol/L (96-108); Creatinine Clr Calc Pharmacy 93.8; Estimated Glomerular Filt Rate > 60; Glucose Random 123 mg/dL (60-115); Lipase 5 U/L (8-78); Potassium 3.7 mmol/L (3.3-5.1); Sodium 142 mmol/L (135-145); Total Protein 7.2 g/dL (6.5-8.0)
--- NOTE | 2023-03-22 07:21 | PC.NURSE ---
pt is a/o x 4 no sob/willow noted speaks in full sentences. c/o ruq abd pain 04/19. mother at bedside. pt is off to ct scan via stretcher.
[2023-03-22] MEDS: iohexoL 350 MG/ML 100 ML INFUS..BTL IV (07:29)
[2023-03-22 08:20] LABS: Appearance Urine Clear; Color Urine Yellow; Glucose Urine UA Negative (Negative); Leukocyte Esterase Urine Negative (Negative); Nitrite Urine Negative (Negative); Specific Gravity - Urine >= 1.030 (1.005-1.025); Urine Blood Negative (Negative); Urine Ketones Negative (Negative); Urine Protein Negative (Neg-Trace)
--- NOTE | 2023-03-22 09:33 | PHA.MEDREC ---
Pharmacy Consult ? Medication Reconciliation Pharmacy has completed the medication reconciliation. Patient had a list on her phone.
--- NOTE | 2023-03-22 09:56 | P.HPHOSP_ITS ---
History of Present Illness Date of Service: 03/22/23 Chief Complaint: right sided abd pain 52F PMH osteoarthritis complicated by chronic pain, mood disorder, obesity, hld, presented with back and right sided abd pain. Two days prior to presentation patient was entirely asymptomatic. On day prior to presentation started having right sided back pain that migrated to right side of abdomen. Pain is 10 10, constant, denies fever, chills, previous episodes. Has had some nausea vomiting. In ED CT scan revealed right-sided colitis. Review of Systems Review of Systems: Yes all other systems are reviewed and are negative [facility] Medical History Allergic rhinitis Back pain Benign essential hypertension Environmental allergies Frequent headaches Hx of iron deficiency anemia Hyperglycemia Left leg pain Lesion of femoral nerve, left lower limb Lumbar degenerative disc disease Medial epicondylitis of right elbow Obesity (BMI 30-39.9) Pure hypercholesterolemia Restless leg syndrome Right elbow pain Sacroiliitis Family History Mother Hypertension Father No problems noted. Surgical History History of nasal surgery Hx of knee surgery Hx of shoulder surgery S/p bilateral myringotomy with tube placement Status post correction of deviated nasal septum Social History Housing: House Are you a primary healthcare insurance sales agent to a significant other at home: No Do you presently have visiting nurse or other home services: No Alcohol intake: never Patient Tobacco Use Status: Former Tobacco user Tobacco use type: Cigarette Smoked in Last 30 Days: Yes e-Cigarette/Vaping Use: Currently Using Second Hand Smoke Exposure: Yes Use of substances other than those prescribed or required for medical reasons: No Advance Directives: No Advance Directives Information Provided: Yes Patient : No service: No Current occupational status: employed 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, 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) Hearing needs: No Vision needs: Yes (Glasses) Meds Allergies Allergy/AdvReac Type Severity Reaction Status Date / Time cephalexin Allergy Severe Anaphylaxis Verified 03/02/23 09:06 Sulfa (Sulfonamide Allergy Unknown hives Verified 03/02/23 09:06 Antibiotics) sulfamethoxazole Allergy Unknown RASH Verified 03/02/23 09:06 [From BACTRIM] trimethoprim [From BACTRIM] Allergy Unknown RASH Verified 03/02/23 09:06 Active Medications: Current Medications Amlodipine Besylate (Amlodipine Besylate 10 Mg Tablet) 10 mg PO DAILY JOSH; Protocol Cyclobenzaprine HCl (Cyclobenzaprine Hcl 5 Mg Tablet) 5 mg PO TID PRN PRN Reason: for muscle spasm Escitalopram Oxalate (Escitalopram Oxalate 20 Mg Tablet) 20 mg PO DAILY JOSH Hydromorphone HCl (Hydromorphone Hcl 1 Mg/Ml Syringe) 1 mg IVPUSH Q3H PRN; Protocol PRN Reason: moderate pain Hydroxyzine HCl (Hydroxyzine Hcl 25 Mg Tablet) 25 mg PO TID PRN PRN Reason: for anxiety Piperacillin Sod/Tazobactam (Sod 3.375 gm/ Sodium Chloride) 50 mls @ 100 mls/hr IV Q6H JOSH Loratadine (Loratadine 10 Mg Tablet) 10 mg PO DAILY PRN PRN Reason: for congestion Losartan Potassium (Losartan Potassium 50 Mg Tablet) 50 mg PO DAILY JOSH; Protocol Pharmacy Consult (Consult Rx Perform Med Rec) 1 each MISCELLANE ONCE PRN PRN Reason: Consult order Physical Exam Vital Signs and Narrative: Vital Signs: Last Vital Signs Temp 99.2 F 03/22/23 08:30 Pulse 102 H 03/22/23 08:30 Resp 16 03/22/23 08:30 BP 141/89 H 03/22/23 08:30 Pulse Ox 96 03/22/23 08:30 O2 Del Method Room Air 03/22/23 08:30 BMI result Body Mass Index 38.1 in pain, right abd tenderness, soft, non distended Results Labs 03/22/23 04:32 03/22/23 05:50 Labs: Laboratory Results - last 24 hr 03/22/23 03/22/23 03/22/23 04:32 05:50 08:05 MCV 87.4 MCH 29.5 MCHC 33.8 RDW 14.6 Plt Count 358 MPV 10.3 Immature Gran % (Auto) 0.4 Neut % (Auto) 83.1 H Lymph % (Auto) 8.7 L [place] % (Auto) 6.8 Eos % (Auto) 0.4 Baso % (Auto) 0.6 Lymph # (Auto) 1.2 [place] # (Auto) 0.9 Eos # (Auto) 0.1 Baso # (Auto) 0.1 Abs Immat Gran (auto) 0.05 H Absolute Neuts (auto) 11.4 H Absolute Nucleated RBC 0.000 Nucleated RBC % (auto) 0.0 Anion Gap 15 Estim Creat Clear Calc 93.8 Estimated GFR > 60 Random Glucose 123 H Calcium 9.2 Total Bilirubin 0.7 Direct Bilirubin 0.2 AST 27 ALT 43 H Alkaline Phosphatase 136 H Total Protein 7.2 Albumin 4.3 Lipase 5 L Urine Color Yellow Urine Appearance Clear Urine pH 7.0 Ur Specific [place] >= 1.030 H Urine Protein Negative Urine Glucose (UA) Negative Urine Ketones Negative Urine Blood Negative Urine Nitrite Negative Ur Leukocyte Esterase Negative Imaging Radiologist's Impressions: Impressions Abdomen/Pelvis CT 03/22/23 07:32 IMPRESSION: 1. Abnormal study. Marked mural thickening and pericolonic inflammatory changes are noted involving the right-sided colon starting from the level of the cecum to the hepatic flexure without evidence of any bowel obstruction, perforation or abscess formation. There are few shotty adjacent mesenteric lymph nodes noted. The appearance is nonspecific, may represent changes secondary to infection, inflammation as well as ischemia. Further differentiation cannot be made based on this imaging appearance alone. 2. Incidental note is also made of presence of mildly distended gallbladder associated with gallstones, diffuse fatty replacement of the pancreas, mild diffuse hepatic steatosis and bilateral sub-5 mm nonobstructing renal calculi and bilateral renal cortical cysts and presence of a linear partially included radiopaque foreign body within the soft tissues at the proximal left thigh. This critical result was discussed with Dr. Carter at 7:55 AM on 03/22/2023 and it was ascertained that the content and urgency of the report was understood at the time of direct communication. Fleischner guidelines were followed. Assessment and Plan (1) Abdominal pain: Status: Acute Plan 52F PMH osteoarthritis complicated by chronic pain, mood disorder, obesity, hld, htn, presented with back and right sided abd pain. acute right sided colitis zosyn, pain control, clears, advance diet when tolerated tachycardia due to pain not sepsis obesity weight loss recommended hepatic steatosis suspect bowser, monitor mood disorder lexapro htn losartan dvt prophylaxis - lovenox full code patient with significant colitis with inflammation not tolerating po, needing iv abx and ivf, therefore, expected to require atleast 2 midnights inpatient Time Spent With Patient Time: Total time managing care of this patient today ____ minutes. Quality Stroke Does the patient have a stroke diagnosis?: No VTE Prior VTE?: No VTE Risk Level:: Medical - moderate - high VTE Device Contraindication: Treatment Not Indicated VTE Drug Contraindication: N/A - Med Ordered
[2023-03-22] MEDS: Piperacillin Sodium/Tazobactam 3.375 GM in 0.9 % Sodium Chloride 50 ML IV ×3 (09:57→21:36)
--- NOTE | 2023-03-22 09:58 | PC.NURSE ---
pt BCs not needed before infusing ABX
--- NOTE | 2023-03-22 10:04 | PC.NURSE ---
Leslee hung on ED doc order, documented against 1000 ZOcyn ordered by hospitalist
[2023-03-22] MEDS: Lactated Ringers 1,000 ML 80 ML IVCONT ×2 (11:08→21:36)
[2023-03-22] MEDS: HYDROmorphone HCl 1 MG/ML SYRINGE IVPUSH ×4 (11:30→20:06)
--- NOTE | 2023-03-22 11:32 | PC.NURSE ---
PRN Dilaudid given for 10/10 pain
[2023-03-22] MEDS: hydrOXYzine HCL 25 MG TABLET PO ×2 (12:42→21:35)
[2023-03-22] MEDS: Cyclobenzaprine HCl 5 MG TABLET PO ×2 (12:42→21:34)
--- NOTE | 2023-03-22 13:01 | PM.GICN ---
History of Present Illness Data of Consult Service Date: 03/22/23 Requesting physician: Wander Carter Primary Care Provider: Jemal Mullen MD HPI 52 YF with osteoarthritis complicated by chronic pain, mood disorder, obesity, hld, seen at [facility] ED on 03/22/23 with back and right sided abd pain.? Pt gives a hx of intermittent back pain for which she takes oxycodone Pt reports she started having back pain yesterday (03/21/23) around noon which later migrated to right abdomen. She used a heating pad and took Flexeril without relief. Pt reports the pain as constant (with intermittent waves of increased pain), stabbing in character and > than 10/10 in intensity Pt admits to associated nausea and vomiting and has been unable to eat or drink anything without gagging except ice chips and sips of fluids. Drinking fluids can make the pain worse. Patient denies fever or chills. Pt had 2 soft to loose BMs yesterday (greenish in color) and denies having a BM today. She admits to passing gas without improvement in pain Pt denies having similar pain in the past. Pt denies any cardiac or pulmonary problems, loud snoring or sleep apnea. Patient denies smoking and admits to drinking off and on when she is in distress. 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 Pt has a daughter, an adopted daughter and 2 step children. Patient's mom has kidney stones, gallbladder disease, coronary artery disease and history of colon polyps. Patient denies known family history of IBD or GI malignancy. ? Labs in the ED showed leukocytosis with left shift, Normal lipase ABDOMINAL CT SCAN SHOWED: 1. Abnormal study. Marked mural thickening and pericolonic inflammatory changes are noted involving the right-sided colon starting from the level of the cecum to the hepatic flexure without evidence of any bowel obstruction, perforation or abscess formation. There are few shotty adjacent mesenteric lymph nodes noted. The appearance is nonspecific, may represent changes secondary to infection, inflammation as well as ischemia. Further differentiation cannot be made based on this imaging appearance alone. 2. Incidental note is also made of presence of mildly distended gallbladder associated with gallstones, diffuse fatty replacement of the pancreas, mild diffuse hepatic steatosis and bilateral sub-5 mm nonobstructing renal calculi and bilateral renal cortical cysts and presence of a linear partially included radiopaque foreign body within the soft tissues at the proximal left thigh. Review of Systems Review of Systems: Yes all other systems are reviewed and are negative [facility] Past Medical History Medical History Allergic rhinitis Back pain Benign essential hypertension Environmental allergies Frequent headaches Hx of iron deficiency anemia Hyperglycemia Left leg pain Lesion of femoral nerve, left lower limb Lumbar degenerative disc disease Medial epicondylitis of right elbow Obesity (BMI 30-39.9) Pure hypercholesterolemia Restless leg syndrome Right elbow pain Sacroiliitis Family History Family History Mother Hypertension Father No problems noted. Surgical History Surgical History History of nasal surgery Hx of knee surgery Hx of shoulder surgery S/p bilateral myringotomy with tube placement Status post correction of deviated nasal septum Social History Social History Household Members: Spouse Housing: House Are you a primary child care attendant to a significant other at home: No Do you presently have visiting nurse or other home services: Yes Alcohol intake: never Patient Tobacco Use Status: Former Tobacco user Tobacco use type: Cigarette e-Cigarette/Vaping Use: Currently Using Second Hand Smoke Exposure: No service: No Current occupational status: employed 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, 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) Hearing needs: No Vision needs: Yes (Glasses) Meds Allergies Allergy/AdvReac Type Severity Reaction Status Date / Time cephalexin Allergy Severe Anaphylaxis Verified 03/02/23 09:06 Sulfa (Sulfonamide Allergy Unknown hives Verified 03/02/23 09:06 Antibiotics) sulfamethoxazole Allergy Unknown RASH Verified 03/02/23 09:06 [From BACTRIM] trimethoprim [From BACTRIM] Allergy Unknown RASH Verified 03/02/23 09:06 Active Medications: Current Medications Amlodipine Besylate (Amlodipine Besylate 10 Mg Tablet) 10 mg PO DAILY [facility]; Protocol Cyclobenzaprine HCl (Cyclobenzaprine Hcl 5 Mg Tablet) 5 mg PO TID PRN PRN Reason: for muscle spasm Last Admin: 03/22/23 12:42 Dose: 5 mg Escitalopram Oxalate (Escitalopram Oxalate 20 Mg Tablet) 20 mg PO DAILY [facility]OS[facility] Hydromorphone HCl (Hydromorphone Hcl 1 Mg/Ml Syringe) 1 mg IVPUSH Q3H PRN; Protocol PRN Reason: moderate pain Last Admin: 03/22/23 11:30 Dose: 1 mg Hydroxyzine HCl (Hydroxyzine Hcl 25 Mg Tablet) 25 mg PO TID PRN PRN Reason: for anxiety Last Admin: 03/22/23 12:42 Dose: 25 mg Piperacillin Sod/Tazobactam (Sod 3.375 gm/ Sodium Chloride) 50 mls @ 100 mls/hr IV Q6H [facility]OS[facility] Last Admin: 03/22/23 10:04 Dose: Not Given Lactated Ringer's (Lr) 1,000 mls @ 80 mls/hr IVCONT .[id number] [facility] Last Admin: 03/22/23 11:08 Dose: 80 mls/hr Loratadine (Loratadine 10 Mg Tablet) 10 mg PO DAILY PRN PRN Reason: for congestion Losartan Potassium (Losartan Potassium 50 Mg Tablet) 50 mg PO DAILY [facility]; Protocol Pharmacy Consult (Consult Rx Perform Med Rec) 1 each MISCELLANE ONCE PRN PRN Reason: Consult order Sodium Chloride (0.9 % Sodium Chloride Flush 3 Ml Syringe) 3 ml IVFLUSH QSHIFT [facility] Physical Exam Vital Signs: Vital Signs: Last Vital Signs Temp 99.2 F 03/22/23 08:30 Pulse 102 H 03/22/23 08:30 Resp 16 03/22/23 08:30 BP 141/89 H 03/22/23 08:30 Pulse Ox 96 03/22/23 08:30 O2 Del Method Room Air 03/22/23 08:30 BMI result Body Mass Index 38.9 Const: General: in distress (due to abdominal pain) Nutritional Appearance: obese Orientation/consciousness: patient oriented x3 HEENT: Head: Yes normal to inspection Ears: hearing grossly normal bilaterally Eyes: Sclerae: sclerae normal Pupils: Equal, round and reactive pupils present Neck: Neck: Yes normal visual inspection Chest: Chest palpation & inspection: normal inspection of the chest Resp: Effort & Inspection: normal respiratory effort Auscultation: clear to auscultation bilaterally Cardio: Palpation: normal PMI Rate: regular rate Rhythm: regular rhythm Heart sounds: S1 normal heart sound present, S2 normal heart sound present and no murmurs GI: Palpation (GI): Soft to palpation, Tenderness to palpation present (GI) (moderate tenderness in right abdomen) and No hepatosplenomegaly present Auscultation: normal bowel sounds Rectal Exam - Female: deferred Skin: General skin exam: no rashes or lesions noted Neuro: General: patient oriented x3, gait normal and moves all extremities Cranial nerves: Yes Equal, round and reactive pupils present Psych: Appearance: grossly normal Mental Status: mental status grossly normal Results Labs 03/22/23 04:32 03/22/23 05:50 Labs: Short CBC 03/22/23 Range/Units 04:32 WBC 13.7 H (4.8-10.8) X10*3/uL Hgb 13.3 (12.0-16.0) g/dl Hct 39.4 (37.0-47.0) % Plt Count 358 (160-400) X10*3/uL BMP 03/22/23 05:50 Sodium 142 Potassium 3.7 Chloride 107 Carbon Dioxide 24 BUN 7 L Creatinine 0.81 Calcium 9.2 Liver Function 03/22/23 Range/Units 05:50 Total Bilirubin 0.7 (0.0-1.0) mg/dL Direct Bilirubin 0.2 (0.0-0.5) mg/dL AST 27 (5-31) U/L ALT 43 H (0-31) U/L Alkaline Phosphatase 136 H (39-117) U/L Albumin 4.3 (3.5-5.0) g/dL Urine 03/22/23 Range/Units 08:05 Urine Color Yellow Urine Appearance Clear Urine pH 7.0 (5.0-9.0) Ur Specific [place] >= 1.030 H (1.005-1.025) Urine Protein Negative (Neg-Trace) mg/dL Urine Glucose (UA) Negative (Negative) mg/dL Assessment and Plan (1) Abdominal pain: Status: Acute (2) Abnormal CT scan, colon: Status: Acute Plan 52 YF with osteoarthritis complicated by chronic pain, mood disorder, obesity, hld, admitted to [facility] on 03/22/23 with back and right sided abd pain.? Pt reports the pain as constant (with intermittent waves of increased pain), stabbing in character and > than 10/10 in intensity Pt admits to associated nausea and vomiting and has been unable to eat or drink anything without gagging except ice chips and sips of fluids. Drinking fluids can make the pain worse. Patient denies fever or chills. Pt had 2 soft to loose BMs yesterday (greenish in color) and denies having a BM today. She admits to passing gas without improvement in pain Abd CT scan showed Marked mural thickening and pericolonic inflammatory changes are noted involving the right-sided colon starting from the level of the cecum to the hepatic flexure without evidence of any bowel obstruction, perforation or abscess formation. There are few shotty adjacent mesenteric lymph nodes noted. Patient's symptoms are likely due to infectious colitis versus ischemic colitis RECOMMENDATIONS: 1. Agree with IV pain medications and IV antibiotics 2. Check GI panel if pt is able to have a BM (order placed) 3. General surgery consult if no improvement in abdominal pain. Pt is scheduled for a screening colonoscopy on 07/16/23. Time Spent With Patient Time: Total time managing care of this patient today ____ minutes. Procedures Date of Service Date of Service: 03/27/23
[2023-03-22] MEDS: oxyCODONE HCl Immed Release 5 MG TABLET 10 MG PO (21:33)
[2023-03-22] MEDS: Loratadine 10 MG TABLET PO (21:34)
[2023-03-23] VITALS (8 sets, daily range): BP systolic 104–131; BP diastolic 54–75; PULSE 50–99; RESP 16–20; TEMP 36.2–36.6; O2SAT 90–93
[2023-03-23] MEDS: HYDROmorphone HCl 1 MG/ML SYRINGE IVPUSH ×7 (01:05→21:10)
[2023-03-23] MEDS: Piperacillin Sodium/Tazobactam 3.375 GM in 0.9 % Sodium Chloride 50 ML IV ×4 (04:10→22:07)
[2023-03-23 05:42] LABS: Hematocrit 32.4 % (37.0-47.0); Hemoglobin 10.9 g/dl (12.0-16.0); Mean Corpuscular HGB Conc 33.6 g/dl (31.0-35.0); Mean Corpuscular Hemoglobin 29.9 pg (27.0-33.0); Mean Platelet Volume 10.2 fL (9.4-12.3); Platelet Count 257 X10*3/uL (160-400); Red Blood Count 3.64 X10*6/uL (4.20-5.50); Red Cell Distribution Width 14.6 % (11.0-16.0); White Blood Count 11.9 X10*3/uL (4.8-10.8)
[2023-03-23 06:02] LABS: C Reactive Protein 17.59 mg/dL (< or = 0.50)
[2023-03-23 06:04] LABS: Anion Gap 12 (12-20); Blood Urea Nitrogen 6 mg/dL (9-16); Calcium 8.6 mg/dL (8.4-10.2); Carbon Dioxide 25 mmol/L (22-29); Chloride 104 mmol/L (96-108); Creatinine Clr Calc Pharmacy 99.7; Estimated Glomerular Filt Rate > 60; Glucose Fasting 165 mg/dL (60-99); Magnesium 1.9 mg/dL (1.6-2.6); Potassium 3.3 mmol/L (3.3-5.1); Sodium 138 mmol/L (135-145)
[2023-03-23] MEDS: oxyCODONE HCl Immed Release 5 MG TABLET 10 MG PO ×3 (06:29→22:05)
--- NOTE | 2023-03-23 08:41 | HO.PM.IMPN ---
Subjective Subjective Date of Service: 03/23/23 Interval History: abd pain only slightly improved Physical Exam Vital Signs: Vital Signs: Last Vital Signs Temp 97.4 F 03/23/23 07:40 Pulse 93 03/23/23 07:40 Resp 20 03/23/23 07:40 BP 109/54 L 03/23/23 07:40 Pulse Ox 91 L 03/23/23 07:40 O2 Del Method Room Air 03/23/23 07:40 BMI result Body Mass Index 38.9 in pain, diffuse abd tenderness R>L, no rebound, soft, non disteneded Objective Data Active Medications Amlodipine Besylate (Amlodipine Besylate 10 Mg Tablet) 10 mg PO DAILY [facility]; Protocol Cyclobenzaprine HCl (Cyclobenzaprine Hcl 5 Mg Tablet) 5 mg PO TID PRN PRN Reason: for muscle spasm Last Admin: 03/22/23 21:34 Dose: 5 mg Documented By: ADDIS Escitalopram Oxalate (Escitalopram Oxalate 20 Mg Tablet) 20 mg PO DAILY [facility] Hydromorphone HCl (Hydromorphone Hcl 1 Mg/Ml Syringe) 1 mg IVPUSH Q3H PRN; Protocol PRN Reason: moderate pain Last Admin: 03/23/23 04:14 Dose: 1 mg Documented By: DADIS Hydroxyzine HCl (Hydroxyzine Hcl 25 Mg Tablet) 25 mg PO TID PRN PRN Reason: for anxiety Last Admin: 03/22/23 21:35 Dose: 25 mg Documented By: ADDIS Piperacillin Sod/Tazobactam (Sod 3.375 gm/ Sodium Chloride) 50 mls @ 100 mls/hr IV Q6H [facility] Last Infusion: 03/23/23 04:52 Dose: 0 mls/hr Documented By: ADDIS Lactated Ringer's (Lr) 1,000 mls @ 80 mls/hr IVCONT .[id number] [facility] Last Infusion: 03/23/23 05:01 Dose: 80 mls/hr Documented By: ADDIS Loratadine (Loratadine 10 Mg Tablet) 10 mg PO DAILY PRN PRN Reason: for congestion Last Admin: 03/22/23 21:34 Dose: 10 mg Documented By: ADDIS Losartan Potassium (Losartan Potassium 50 Mg Tablet) 50 mg PO DAILY [facility]; Protocol Oxycodone HCl (Oxycodone Hcl Immed Release 5 Mg Tablet) 10 mg PO Q8H [facility] Last Admin: 03/23/23 06:29 Dose: 10 mg Documented By: ADDIS Pharmacy Consult (Consult Rx Perform Med Rec) 1 each MISCELLANE ONCE PRN PRN Reason: Consult order Sodium Chloride (0.9 % Sodium Chloride Flush 3 Ml Syringe) 3 ml IVFLUSH QSHIFT [facility] Last Admin: 03/23/23 07:07 Dose: Not Given Documented By: COTAYO Non-Admin Reason: IV Running Labs 03/23/23 05:37 03/23/23 05:37 Labs: Laboratory Results - last 24 hr 03/23/23 03/23/23 03/23/23 05:37 05:37 05:37 MCV 89.0 MCH 29.9 MCHC 33.6 RDW 14.6 Plt Count 257 D MPV 10.2 Absolute Nucleated RBC 0.000 Nucleated RBC % (auto) 0.0 Anion Gap 12 Estim Creat Clear Calc 99.7 Estimated GFR > 60 Fasting Glucose 165 H Calcium 8.6 D Magnesium 1.9 C-Reactive Protein 17.59 H Assessment and Plan (1) Abnormal CT scan, colon: Status: Acute Plan 52F PMH osteoarthritis complicated by chronic pain, mood disorder, obesity, hld, htn, presented with back and right sided abd pain. acute right sided colitis continue zosyn, pain control, clears, advance diet when tolerated gi following if worsens consider repeat imaging, surgery eval check stool studies (has not had BM yet) obesity weight loss recommended hepatic steatosis suspect bowser, monitor mood disorder lexapro htn losartan dvt prophylaxis - lovenox full code reason for continued hospitalization:not tolerating po, significant pain Time Spent With Patient Time: Total time managing care of this patient today ____ minutes. Quality Stroke Does the patient have a stroke diagnosis?: No VTE Prior VTE?: No VTE Risk Level:: Medical - moderate - high VTE Device Contraindication: Treatment Not Indicated VTE Drug Contraindication: N/A - Med Ordered
[2023-03-23] MEDS: amLODIPine Besylate 10 MG TABLET PO (08:47)
[2023-03-23] MEDS: Escitalopram Oxalate 20 MG TABLET PO (08:47)
[2023-03-23] MEDS: Losartan Potassium 50 MG TABLET PO (08:47)
[2023-03-23] MEDS: Cyclobenzaprine HCl 5 MG TABLET PO ×2 (08:47→16:48)
[2023-03-23] MEDS: hydrOXYzine HCL 25 MG TABLET PO ×2 (08:48→16:49)
--- NOTE | 2023-03-23 09:26 | MHC.CM.PN ---
PATIENT LIVES WITH HER /NEW HCP ORIGINAL TO BE COMPLETED AND PLACED IN CHART CM TO RETURN WHEN PATIENT IS ABLE TO PARTICIPATE IN CONVERSATION CURRENTLY EXPRESSING HIGH PAIN LEVELS.
[2023-03-23] MEDS: bisacodyL 5 MG TABLET.DR PO (11:42)
[2023-03-23] MEDS: Lactated Ringers 1,000 ML 80 ML IVCONT (12:37)
[2023-03-23] MEDS: Barium Sulfate Oral (Berry) 450 ML ORAL.SUSP 900 ML PO (14:40)
[2023-03-23] MEDS: 0.9 % Sodium Chloride Flush 3 ML SYRINGE IVFLUSH (14:49)
[2023-03-23] MEDS: Acetaminophen 325 MG TABLET 650 MG PO ×2 (16:49→21:09)
[2023-03-24] MEDS: Lactated Ringers 1,000 ML 80 ML IVCONT (02:05)
[2023-03-24] MEDS: HYDROmorphone HCl 1 MG/ML SYRINGE IVPUSH ×5 (02:13→21:35)
[2023-03-24 03:45] VITALS: BP 117/63; PULSE 82; RESP 18; TEMP 36.1; O2SAT 95
[2023-03-24] MEDS: Piperacillin Sodium/Tazobactam 3.375 GM in 0.9 % Sodium Chloride 50 ML IV ×4 (04:00→21:15)
[2023-03-24] MEDS: oxyCODONE HCl Immed Release 5 MG TABLET 10 MG PO ×3 (05:44→21:13)
[2023-03-24 06:21] LABS: Anion Gap 9 (12-20); Blood Urea Nitrogen 3 mg/dL (9-16); Calcium 8.8 mg/dL (8.4-10.2); Carbon Dioxide 30 mmol/L (22-29); Chloride 105 mmol/L (96-108); Creatinine Clr Calc Pharmacy 112.9; Estimated Glomerular Filt Rate > 60; Glucose Fasting 105 mg/dL (60-99); Potassium 3.1 mmol/L (3.3-5.1); Sodium 141 mmol/L (135-145)
[2023-03-24 06:32] LABS: Hematocrit 31.9 % (37.0-47.0); Hemoglobin 10.5 g/dl (12.0-16.0); Mean Corpuscular HGB Conc 32.9 g/dl (31.0-35.0); Mean Corpuscular Hemoglobin 29.8 pg (27.0-33.0); Mean Corpuscular Volume 90.6 fL (80.0-98.0); Mean Platelet Volume 11.2 fL (9.4-12.3); Platelet Count 257 X10*3/uL (160-400); Red Blood Count 3.52 X10*6/uL (4.20-5.50); Red Cell Distribution Width 14.6 % (11.0-16.0); White Blood Count 9.3 X10*3/uL (4.8-10.8)
[2023-03-24 07:45] VITALS: BP 121/60; PULSE 94; RESP 18; TEMP 36.6; O2SAT 92
[2023-03-24] MEDS: Losartan Potassium 50 MG TABLET PO (07:54)
[2023-03-24] MEDS: amLODIPine Besylate 10 MG TABLET PO (07:54)
[2023-03-24] MEDS: Escitalopram Oxalate 20 MG TABLET PO (07:54)
[2023-03-24] MEDS: Potassium Chloride ER 20 MEQ TAB.ER.PRT 40 MEQ PO (08:03)
[2023-03-24] MEDS: Cyclobenzaprine HCl 5 MG TABLET PO ×2 (08:03→21:29)
--- NOTE | 2023-03-24 08:40 | P.PNIM_ITS ---
Subjective Subjective Date of Service: 03/24/23 Interval History: reports unchanged pain and diarrhea, not able to quantify Physical Exam Vital Signs: Vital Signs: Last Vital Signs Temp 97.8 F 03/24/23 07:45 Pulse 94 03/24/23 07:45 Resp 18 03/24/23 07:45 BP 121/60 03/24/23 07:45 Pulse Ox 92 03/24/23 07:45 O2 Del Method Room Air 03/24/23 07:45 BMI result Body Mass Index 38.9 Const: Other: General: AO X 3, no acute distress Resp: CTA bilateral CVS: S1,S2,RRR GI: +BS, right sided tenderness, no distention Skin: No rash Neuro: motor grossly intact Psych: appropriate affect Objective Data Active Medications Acetaminophen (Acetaminophen 325 Mg Tablet) 650 mg PO Q4H PRN PRN Reason: moderate pain Last Admin: 03/23/23 21:09 Dose: 650 mg Documented By: EFRAIN Amlodipine Besylate (Amlodipine Besylate 10 Mg Tablet) 10 mg PO DAILY [facility]; Protocol Last Admin: 03/24/23 07:54 Dose: 10 mg Documented By: JANNY Cyclobenzaprine HCl (Cyclobenzaprine Hcl 5 Mg Tablet) 5 mg PO TID PRN PRN Reason: for muscle spasm Last Admin: 03/24/23 08:03 Dose: 5 mg Documented By: JANNY Escitalopram Oxalate (Escitalopram Oxalate 20 Mg Tablet) 20 mg PO DAILY [facility] Last Admin: 03/24/23 07:54 Dose: 20 mg Documented By: JANNY Hydromorphone HCl (Hydromorphone Hcl 1 Mg/Ml Syringe) 1 mg IVPUSH Q3H PRN; Protocol PRN Reason: moderate pain Last Admin: 03/24/23 07:54 Dose: 1 mg Documented By: JANNY Hydroxyzine HCl (Hydroxyzine Hcl 25 Mg Tablet) 25 mg PO TID PRN PRN Reason: for anxiety Last Admin: 03/23/23 16:49 Dose: 25 mg Documented By: YARITZA Piperacillin Sod/Tazobactam (Sod 3.375 gm/ Sodium Chloride) 50 mls @ 100 mls/hr IV Q6H [facility] Last Infusion: 03/24/23 04:48 Dose: 0 mls/hr Documented By: EFRAIN Lactated Ringer's (Lr) 1,000 mls @ 80 mls/hr IVCONT .[id number] [facility] Last Admin: 03/24/23 02:05 Dose: 80 mls/hr Documented By: EFRAIN Loratadine (Loratadine 10 Mg Tablet) 10 mg PO DAILY PRN PRN Reason: for congestion Last Admin: 03/22/23 21:34 Dose: 10 mg Documented By: ADDIS Losartan Potassium (Losartan Potassium 50 Mg Tablet) 50 mg PO DAILY [facility]; Protocol Last Admin: 03/24/23 07:54 Dose: 50 mg Documented By: JANNY Oxycodone HCl (Oxycodone Hcl Immed Release 5 Mg Tablet) 10 mg PO Q8H [facility] Last Admin: 03/24/23 05:44 Dose: 10 mg Documented By: EFRAIN Pharmacy Consult (Consult Rx Perform Med Rec) 1 each MISCELLANE ONCE PRN PRN Reason: Consult order Sodium Chloride (0.9 % Sodium Chloride Flush 3 Ml Syringe) 3 ml IVFLUSH QSHIFT [facility] Last Admin: 03/24/23 07:50 Dose: Not Given Documented By: JANNY Non-Admin Reason: IV Running Labs 03/24/23 05:21 03/24/23 05:21 Labs: Laboratory Results - last 24 hr 03/24/23 03/24/23 05:21 05:21 MCV 90.6 MCH 29.8 MCHC 32.9 RDW 14.6 Plt Count 257 MPV 11.2 Absolute Nucleated RBC 0.000 Nucleated RBC % (auto) 0.0 Anion Gap 9 L Estim Creat Clear Calc 112.9 Estimated GFR > 60 Fasting Glucose 105 H Calcium 8.8 Assessment and Plan (1) Colitis: Status: Acute Plan 52F PMH osteoarthritis complicated by chronic pain, mood disorder, obesity, hld, htn, presented with back and right sided abd pain. acute right sided colitis, persistent pain and diarrhea continue zosyn, pain control, advance to full liq diet, advance diet when tolerated gi following if worsens consider repeat imaging, surgery eval check stool studies obesity weight loss recommended hepatic steatosis suspect bowser, monitor mood disorder lexapro htn losartan dvt prophylaxis - lovenox full code reason for continued hospitalization:not tolerating po, significant pain, Time Spent With Patient Time: Total time managing care of this patient today ____ minutes. Quality Stroke Does the patient have a stroke diagnosis?: No VTE Prior VTE?: No VTE Risk Level:: Medical - moderate - high VTE Device Contraindication: Treatment Not Indicated VTE Drug Contraindication: N/A - Med Ordered
--- NOTE | 2023-03-24 11:00 | P.CDIM_ITS ---
PROVIDER RESPONSE TEXT: To clarify, the appropriate diagnosis supported by the clinical indicators: Hypokalemia QUERY TEXT: PHYSICIAN'S DOCUMENTATION REQUEST Date of Query: 03/24/2023 09:14 AM EDT Patient Name: Eloise Fenton Admit Date: 03/22/2023 Dear Rick Verdugo, A review of the medical record indicates additional documentation may be needed. Please review below and update the documentation accordingly. Clinical Indicators: LAB FINDINGS: 03/23 - potassium 3.1 L Based on the above, is there a diagnosis that correlates with the lab findings: Hypokalemia Labs indicate a diagnosis of (please specify) Other Other (explain)Clinically unable to determine (explain)Thank you, Antonietta Singh, CCS, CDIS Use of terms such as suspected, likely, concern for, or probable (associated with a specific diagnosi s that is being evaluated, monitored, or treated as if it exists) are acceptable and can be coded in the inpatient se tting, when documented at the time of discharge. Please use your independent medical judgment in providing your response. THIS QUERY IS PART OF THE PERMANENT MEDICAL RECORD
--- NOTE | 2023-03-24 14:08 | MHC.CM.PN ---
PLAN IS HOME TOMORROW FAMILY TO TRANSPORT NO SERVICES ANTICIPATED
[2023-03-24 15:12] VITALS: BP 116/58; PULSE 89; RESP 18; TEMP 36.1; O2SAT 93
[2023-03-24 19:35] VITALS: BP 145/74; PULSE 100; RESP 16; TEMP 36.8; O2SAT 95
[2023-03-24] MEDS: hydrOXYzine HCL 25 MG TABLET PO (21:13)
[2023-03-25] MEDS: Lactated Ringers 1,000 ML 80 ML IVCONT ×2 (01:38→06:12)
[2023-03-25] MEDS: HYDROmorphone HCl 1 MG/ML SYRINGE IVPUSH ×5 (01:42→20:38)
[2023-03-25] MEDS: Piperacillin Sodium/Tazobactam 3.375 GM in 0.9 % Sodium Chloride 50 ML IV ×4 (03:17→22:04)
[2023-03-25 04:00] VITALS: BP 101/55; PULSE 82; RESP 16; TEMP 36.1; O2SAT 91
[2023-03-25] MEDS: oxyCODONE HCl Immed Release 5 MG TABLET 10 MG PO ×3 (06:09→22:01)
[2023-03-25 07:48] VITALS: BP 110/61; PULSE 87; RESP 16; TEMP 36.4; O2SAT 95
[2023-03-25] MEDS: amLODIPine Besylate 10 MG TABLET PO (09:15)
[2023-03-25] MEDS: Escitalopram Oxalate 20 MG TABLET PO (09:15)
[2023-03-25] MEDS: Losartan Potassium 50 MG TABLET PO (09:15)
[2023-03-25] MEDS: hydrOXYzine HCL 25 MG TABLET PO ×3 (09:19→22:02)
--- NOTE | 2023-03-25 12:10 | P.PNIM_ITS ---
Subjective Subjective Date of Service: 03/25/23 Interval History: Seen and evaluated Feels better still having episodes of pain and diarrhea no other overnight event Review of Systems Review of Systems: Yes all other systems are reviewed and are negative Physical Exam Vital Signs: Vital Signs: Last Vital Signs Temp 97.5 F 03/25/23 07:48 Pulse 87 03/25/23 07:48 Resp 16 03/25/23 07:48 BP 110/61 03/25/23 07:48 Pulse Ox 95 03/25/23 07:48 O2 Del Method Room Air 03/25/23 07:48 BMI result Body Mass Index 38.9 Const: Other: Constitutional : Awake, interactive, not in distress Neck : Normal inspection, Supple Cardiovascular : RRR, no JVP, no lower extremity edema Respiratory : good bilateral air entry, no crackles, wheezes or rhonchi Gastrointestinal: soft, lax, Normal bowel sounds, RLQ mild tenderness, no surgical signs Skin : Warm, Dry Neurological : Alert & oriented x3, No focal deficit Objective Data Active Medications Acetaminophen (Acetaminophen 325 Mg Tablet) 650 mg PO Q4H PRN PRN Reason: moderate pain Last Admin: 03/23/23 21:09 Dose: 650 mg Documented By: EFRAIN Amlodipine Besylate (Amlodipine Besylate 10 Mg Tablet) 10 mg PO DAILY [facility]; Protocol Last Admin: 03/25/23 09:15 Dose: 10 mg Documented By: WALLACE Cyclobenzaprine HCl (Cyclobenzaprine Hcl 5 Mg Tablet) 5 mg PO TID PRN PRN Reason: for muscle spasm Last Admin: 03/24/23 21:29 Dose: 5 mg Documented By: KRISTEN Escitalopram Oxalate (Escitalopram Oxalate 20 Mg Tablet) 20 mg PO DAILY [facility] Last Admin: 03/25/23 09:15 Dose: 20 mg Documented By: WALLACE Hydromorphone HCl (Hydromorphone Hcl 1 Mg/Ml Syringe) 1 mg IVPUSH Q3H PRN; Protocol PRN Reason: moderate pain Last Admin: 03/25/23 09:19 Dose: 1 mg Documented By: WALLACE Hydroxyzine HCl (Hydroxyzine Hcl 25 Mg Tablet) 25 mg PO TID PRN PRN Reason: for anxiety Last Admin: 03/25/23 09:19 Dose: 25 mg Documented By: WALLACE Piperacillin Sod/Tazobactam (Sod 3.375 gm/ Sodium Chloride) 50 mls @ 100 mls/hr IV Q6H [facility] Last Infusion: 03/25/23 10:00 Dose: 0 mls/hr Documented By: WALLACE Lidocaine (Lidocaine 4 % Patch Adh..Patch) 1 patch TRANSDERMA DAILY [facility]; Protocol Last Admin: 03/25/23 11:01 Dose: Not Given Documented By: WALLACE Non-Admin Reason: Patient Refused Loratadine (Loratadine 10 Mg Tablet) 10 mg PO DAILY PRN PRN Reason: for congestion Last Admin: 03/22/23 21:34 Dose: 10 mg Documented By: LYSLiss Losartan Potassium (Losartan Potassium 50 Mg Tablet) 50 mg PO DAILY [facility]; Protocol Last Admin: 03/25/23 09:15 Dose: 50 mg Documented By: WALLACE Oxycodone HCl (Oxycodone Hcl Immed Release 5 Mg Tablet) 10 mg PO Q8H [facility] Last Admin: 03/25/23 06:09 Dose: 10 mg Documented By: KRISTEN Pharmacy Consult (Consult Rx Perform Med Rec) 1 each MISCELLANE ONCE PRN PRN Reason: Consult order Sodium Chloride (0.9 % Sodium Chloride Flush 3 Ml Syringe) 3 ml IVFLUSH QSHIFT [facility] Last Admin: 03/25/23 09:14 Dose: Not Given Documented By: WALLACE Non-Admin Reason: IV Running Labs 03/24/23 05:21 03/24/23 05:21 Assessment and Plan (1) Colitis: Status: Acute Plan 52F PMH osteoarthritis complicated by chronic pain, mood disorder, obesity, hld, htn, presented with back and right sided abd pain. acute right sided colitis, persistent pain and diarrhea improving slowly continue zosyn pain control full liq diet, advance as tolerated gi following Pending stool studies GI input appreciated obesity weight loss recommended hepatic steatosis suspect bowser, monitor mood disorder lexapro htn losartan dvt prophylaxis - lovenox full code reason for continued hospitalization: started to tolerating PO, still with pain and diarrhea improving slowly Time Spent With Patient Time: Total time managing care of this patient today ____ minutes. Quality Stroke Does the patient have a stroke diagnosis?: No VTE Prior VTE?: No VTE Risk Level:: Medical - moderate - high VTE Device Contraindication: Treatment Not Indicated VTE Drug Contraindication: N/A - Med Ordered
[2023-03-25 13:58] LABS: Adenovirus F 40/41 Not Detected (Not Detect.); Astrovirus Not Detected (Not Detect.); Campylobacter Not Detected (Not Detect.); Cryptosporidium Not Detected (Not Detect.); Cyclospora cayetanensis Not Detected (Not Detect.); E. coli EAEC Not Detected (Not Detect.); E. coli EPEC Not Detected (Not Detect.); E. coli ETEC Not Detected (Not Detect.); E. coli STEC Not Detected (Not Detect.); Entamoeba histolytica Not Detected (Not Detect.); Giardia lamblia Not Detected (Not Detect.); Norovirus GI/GII Not Detected (Not Detect.); Plesiomonas shigelloides Not Detected (Not Detect.); Rotavirus A Not Detected (Not Detect.); Salmonella Not Detected (Not Detect.); Sapovirus Not Detected (Not Detect.); Shigella sp./EIEC Not Detected (Not Detect.); Vibrio Not Detected (Not Detect.); Vibrio Cholerae Not Detected (Not Detect.); Yersinia enterocolitica Not Detected (Not Detect.)
--- NOTE | 2023-03-25 14:01 | MHC.CM.PN ---
PAIN STILL BEING MANAGED NO PLAN FOR DC TODAY MAY BE HERE OVER WEEKEND. CASE MANAGEMENT FOLLOWING
[2023-03-25 15:21] VITALS: BP 107/59; PULSE 80; RESP 18; TEMP 36.3; O2SAT 96
[2023-03-25] MEDS: 0.9 % Sodium Chloride Flush 3 ML SYRINGE IVFLUSH ×2 (15:48→20:42)
[2023-03-25 19:22] VITALS: BP 109/60; PULSE 87; RESP 18; TEMP 36; O2SAT 96
[2023-03-25] MEDS: Cyclobenzaprine HCl 5 MG TABLET PO (22:02)
[2023-03-25] MEDS: Loratadine 10 MG TABLET PO (22:03)
[2023-03-26 03:12] VITALS: BP 109/61; PULSE 89; RESP 16; TEMP 36.6; O2SAT 94
[2023-03-26] MEDS: Piperacillin Sodium/Tazobactam 3.375 GM in 0.9 % Sodium Chloride 50 ML IV ×4 (03:54→22:26)
[2023-03-26] MEDS: HYDROmorphone HCl 1 MG/ML SYRINGE IVPUSH ×5 (04:07→19:45)
[2023-03-26] MEDS: oxyCODONE HCl Immed Release 5 MG TABLET 10 MG PO ×3 (05:44→22:22)
[2023-03-26 06:45] LABS: Anion Gap 12 (12-20); Blood Urea Nitrogen < 3 mg/dL (9-16); Calcium 9.2 mg/dL (8.4-10.2); Carbon Dioxide 29 mmol/L (22-29); Chloride 105 mmol/L (96-108); Creatinine Clr Calc Pharmacy 118.2; Estimated Glomerular Filt Rate > 60; Glucose Random 97 mg/dL (60-115); Potassium 3.2 mmol/L (3.3-5.1); Sodium 143 mmol/L (135-145)
[2023-03-26 07:29] VITALS: BP 114/63; PULSE 86; RESP 16; TEMP 36.4; O2SAT 92
[2023-03-26] MEDS: Potassium Chloride Packet 20 MEQ PACKET 40 MEQ PO (08:21)
[2023-03-26 08:22] LABS: C Reactive Protein 7.61 mg/dL (< or = 0.50)
[2023-03-26] MEDS: Escitalopram Oxalate 20 MG TABLET PO (08:22)
[2023-03-26] MEDS: 0.9 % Sodium Chloride Flush 3 ML SYRINGE IVFLUSH ×3 (08:22→22:26)
[2023-03-26] MEDS: Losartan Potassium 50 MG TABLET PO (08:22)
[2023-03-26] MEDS: amLODIPine Besylate 10 MG TABLET PO (08:22)
[2023-03-26] MEDS: Cyclobenzaprine HCl 5 MG TABLET PO ×3 (08:29→22:25)
[2023-03-26] MEDS: hydrOXYzine HCL 25 MG TABLET PO ×3 (08:29→22:25)
--- NOTE | 2023-03-26 09:03 | P.CONGS_ITS ---
History of Present Illness Consult details Consult date: 03/26/23 Narrative: 52-year-old female admitted on March 22 for right-sided abdominal pain. Her CAT scan showed mural thickening of the right colon starting from the cecum consistent with right-sided colitis. She was bowel rest and IV antibiotics. She had stated that she felt that she was improving yesterday and had much less pain. However, was complaining of recurrence of her pain again this morning so I was consulted to evaluate. She denies any nausea or vomiting. She denies any fever. She says she has had some loose stools but she says this started only after she had been on antibiotics here in the hospital. Review of Systems Constitutional: Constitutional: Denies chills and Denies fever(s) Cardiovascular: Cardiovascular: Denies chest pain, Denies dyspnea and Denies dyspnea on exertion Respiratory: Respiratory: Denies cough, Denies dyspnea and Denies dyspnea on exertion Gastrointestinal: Gastrointestinal: Denies hematochezia and Denies change in bowel habits Genitourinary: Genitourinary: Denies hematuria Musculoskeletal: Musculoskeletal: Denies back pain and Denies limited range of motion Neurologic: Denies focal weakness and Denies convulsions Psychiatric: Psychiatric: Denies depression and Denies mood swings PMFSH Past Medical History Medical History Allergic rhinitis Back pain Benign essential hypertension Environmental allergies Frequent headaches Hx of iron deficiency anemia Hyperglycemia Left leg pain Lesion of femoral nerve, left lower limb Lumbar degenerative disc disease Medial epicondylitis of right elbow Obesity (BMI 30-39.9) Pure hypercholesterolemia Restless leg syndrome Right elbow pain Sacroiliitis Family History Family History Mother Hypertension Father No problems noted. Surgical History Surgical History History of nasal surgery Hx of knee surgery Hx of shoulder surgery S/p bilateral myringotomy with tube placement Status post correction of deviated nasal septum Social History Social History Household Members: Spouse Housing: House Are you a primary healthcare translator to a significant other at home: No Do you presently have visiting nurse or other home services: Yes Alcohol intake: never Patient Tobacco Use Status: Former Tobacco user Tobacco use type: Cigarette e-Cigarette/Vaping Use: Currently Using Second Hand Smoke Exposure: No service: No Current occupational status: employed 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, 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) Hearing needs: No Vision needs: Yes (Glasses) Meds Allergies Allergy/AdvReac Type Severity Reaction Status Date / Time cephalexin Allergy Severe Anaphylaxis Verified 03/02/23 09:06 Sulfa (Sulfonamide Allergy Unknown hives Verified 03/02/23 09:06 Antibiotics) sulfamethoxazole Allergy Unknown RASH Verified 03/02/23 09:06 [From BACTRIM] trimethoprim [From BACTRIM] Allergy Unknown RASH Verified 03/02/23 09:06 Active Medications: Current Medications Acetaminophen (Acetaminophen 325 Mg Tablet) 650 mg PO Q4H PRN PRN Reason: moderate pain Last Admin: 03/23/23 21:09 Dose: 650 mg Amlodipine Besylate (Amlodipine Besylate 10 Mg Tablet) 10 mg PO DAILY [facility]; Protocol Last Admin: 03/26/23 08:22 Dose: 10 mg Cyclobenzaprine HCl (Cyclobenzaprine Hcl 5 Mg Tablet) 5 mg PO TID PRN PRN Reason: for muscle spasm Last Admin: 03/26/23 08:29 Dose: 5 mg Escitalopram Oxalate (Escitalopram Oxalate 20 Mg Tablet) 20 mg PO DAILY [facility] Last Admin: 03/26/23 08:22 Dose: 20 mg Hydromorphone HCl (Hydromorphone Hcl 1 Mg/Ml Syringe) 1 mg IVPUSH Q3H PRN; Protocol PRN Reason: moderate pain Last Admin: 03/26/23 08:30 Dose: 1 mg Hydroxyzine HCl (Hydroxyzine Hcl 25 Mg Tablet) 25 mg PO TID PRN PRN Reason: for anxiety Last Admin: 03/26/23 08:29 Dose: 25 mg Piperacillin Sod/Tazobactam (Sod 3.375 gm/ Sodium Chloride) 50 mls @ 100 mls/hr IV Q6H [facility] Last Infusion: 03/26/23 04:35 Dose: Infused Loratadine (Loratadine 10 Mg Tablet) 10 mg PO DAILY PRN PRN Reason: for congestion Last Admin: 03/25/23 22:03 Dose: 10 mg Losartan Potassium (Losartan Potassium 50 Mg Tablet) 50 mg PO DAILY [facility]; Protocol Last Admin: 03/26/23 08:22 Dose: 50 mg Oxycodone HCl (Oxycodone Hcl Immed Release 5 Mg Tablet) 10 mg PO Q8H [facility] Last Admin: 03/26/23 05:44 Dose: 10 mg Pharmacy Consult (Consult Rx Perform Med Rec) 1 each MISCELLANE ONCE PRN PRN Reason: Consult order Sodium Chloride (0.9 % Sodium Chloride Flush 3 Ml Syringe) 3 ml IVFLUSH QSHIFT [facility] Last Admin: 03/26/23 08:22 Dose: 3 ml Physical Exam Vital Signs: Vital Signs: Last Vital Signs Temp 97.5 F 03/26/23 07:29 Pulse 86 03/26/23 07:29 Resp 16 03/26/23 07:29 BP 114/63 03/26/23 07:29 Pulse Ox 92 03/26/23 07:29 O2 Del Method Room Air 03/26/23 07:29 BMI result Body Mass Index 38.9 Const: General: comfortable and no acute distress Orientation/consciousness: patient oriented x3 Neck: Neck: Yes no lymphadenopathy Resp: Auscultation: clear to auscultation bilaterally Cardio: Rhythm: regular rhythm GI: Other: Tender on the right side Palpation (GI): Soft to palpation, Tenderness to palpation present (GI) and no guarding Neuro: General: patient oriented x3 Results Labs 03/24/23 05:21 03/26/23 05:20 Labs: Abnormal lab results 03/26/23 Range/Units 05:20 Potassium 3.2 L (3.3-5.1) mmol/L BUN < 3 L (9-16) mg/dL C-Reactive Protein 7.61 H (< or = 0.50) mg/dL BMP 03/26/23 05:20 Sodium 143 Potassium 3.2 L Chloride 105 Carbon Dioxide 29 BUN < 3 L Creatinine 0.65 Calcium 9.2 Urine 03/22/23 Range/Units 08:05 Urine Color Yellow Urine Appearance Clear Urine pH 7.0 (5.0-9.0) Ur Specific [place] >= 1.030 H (1.005-1.025) Urine Protein Negative (Neg-Trace) mg/dL Urine Glucose (UA) Negative (Negative) mg/dL All other labs normal. Assessment and Plan (1) Colitis: Status: Acute She was admitted for right-sided abdominal pain last 03/22/2023. She states her pain much improved yesterday but she seems to have worsening again this morning. She looks well and does not appear septic. She does not have any peritoneal signs. We will repeat her CT scan this morning with IV contrast. Gastroenterology is already involved. I have ordered for a follow-up CBC as well. Time Spent With Patient Time: Total time managing care of this patient today ____ minutes. Procedures Date of Service Date of Service: 03/30/23
[2023-03-26 09:19] LABS: Hematocrit 32.1 % (37.0-47.0); Hemoglobin 10.5 g/dl (12.0-16.0); Mean Corpuscular HGB Conc 32.7 g/dl (31.0-35.0); Mean Corpuscular Hemoglobin 29.5 pg (27.0-33.0); Mean Corpuscular Volume 90.2 fL (80.0-98.0); Mean Platelet Volume 11.4 fL (9.4-12.3); Platelet Count 348 X10*3/uL (160-400); Red Blood Count 3.56 X10*6/uL (4.20-5.50); Red Cell Distribution Width 14.5 % (11.0-16.0); White Blood Count 5.4 X10*3/uL (4.8-10.8)
--- NOTE | 2023-03-26 10:22 | HO.PM.IMPN ---
Subjective Subjective Date of Service: 03/26/23 Interval History: Seen and evaluated Feels better still having episodes of pain and diarrhea no other overnight event Review of Systems Review of Systems: Yes all other systems are reviewed and are negative Physical Exam Vital Signs: Vital Signs: Last Vital Signs Temp 97.5 F 03/26/23 07:29 Pulse 86 03/26/23 07:29 Resp 16 03/26/23 07:29 BP 114/63 03/26/23 07:29 Pulse Ox 92 03/26/23 07:29 O2 Del Method Room Air 03/26/23 07:29 BMI result Body Mass Index 38.9 Const: Other: Constitutional : Awake, interactive, not in distress Neck : Normal inspection, Supple Cardiovascular : RRR, no JVP, no lower extremity edema Respiratory : good bilateral air entry, no crackles, wheezes or rhonchi Gastrointestinal: soft, lax, Normal bowel sounds, RLQ mild tenderness, no surgical signs Skin : Warm, Dry Neurological : Alert & oriented x3, No focal deficit Objective Data Active Medications Acetaminophen (Acetaminophen 325 Mg Tablet) 650 mg PO Q4H PRN PRN Reason: moderate pain Last Admin: 03/23/23 21:09 Dose: 650 mg Documented By: EFRAIN Amlodipine Besylate (Amlodipine Besylate 10 Mg Tablet) 10 mg PO DAILY [facility]; Protocol Last Admin: 03/26/23 08:22 Dose: 10 mg Documented By: WALLACE Cyclobenzaprine HCl (Cyclobenzaprine Hcl 5 Mg Tablet) 5 mg PO TID PRN PRN Reason: for muscle spasm Last Admin: 03/26/23 08:29 Dose: 5 mg Documented By: WALLACE Escitalopram Oxalate (Escitalopram Oxalate 20 Mg Tablet) 20 mg PO DAILY [facility] Last Admin: 03/26/23 08:22 Dose: 20 mg Documented By: WALLACE Hydromorphone HCl (Hydromorphone Hcl 1 Mg/Ml Syringe) 1 mg IVPUSH Q3H PRN; Protocol PRN Reason: moderate pain Last Admin: 03/26/23 08:30 Dose: 1 mg Documented By: WALLACE Hydroxyzine HCl (Hydroxyzine Hcl 25 Mg Tablet) 25 mg PO TID PRN PRN Reason: for anxiety Last Admin: 03/26/23 08:29 Dose: 25 mg Documented By: WALLACE Piperacillin Sod/Tazobactam (Sod 3.375 gm/ Sodium Chloride) 50 mls @ 100 mls/hr IV Q6H [facility] Last Admin: 03/26/23 10:15 Dose: 100 mls/hr Documented By: WALLACE Loratadine (Loratadine 10 Mg Tablet) 10 mg PO DAILY PRN PRN Reason: for congestion Last Admin: 03/25/23 22:03 Dose: 10 mg Documented By: EFRAIN Losartan Potassium (Losartan Potassium 50 Mg Tablet) 50 mg PO DAILY [facility]; Protocol Last Admin: 03/26/23 08:22 Dose: 50 mg Documented By: WALLACE Oxycodone HCl (Oxycodone Hcl Immed Release 5 Mg Tablet) 10 mg PO Q8H [facility] Last Admin: 03/26/23 05:44 Dose: 10 mg Documented By: EFRAIN Pharmacy Consult (Consult Rx Perform Med Rec) 1 each MISCELLANE ONCE PRN PRN Reason: Consult order Sodium Chloride (0.9 % Sodium Chloride Flush 3 Ml Syringe) 3 ml IVFLUSH QSHIFT [facility] Last Admin: 03/26/23 08:22 Dose: 3 ml Documented By: WALLACE Labs 03/26/23 09:12 03/26/23 05:20 Labs: Laboratory Results - last 24 hr 03/24/23 03/26/23 03/26/23 14:20 05:20 09:12 MCV 90.2 MCH 29.5 MCHC 32.7 RDW 14.5 Plt Count 348 D MPV 11.4 Absolute Nucleated RBC 0.000 Nucleated RBC % (auto) 0.0 Anion Gap 12 Estim Creat Clear Calc 118.2 Estimated GFR > 60 Random Glucose 97 Calcium 9.2 C-Reactive Protein 7.61 H Stl C. cayetanensis PCR Not Detected Stool Rotavirus A PCR Not Detected Stl Adenov F 40/41 PCR Not Detected Stool Astrovirus (PCR) Not Detected Stool Campylobacter PCR Not Detected Stool Cryptosporidium PCR Not Detected Stl Sh Tox Pr E STEC PCR Not Detected Stool E coli O157 PCR Not applicable Stl Enterotoxigenic E PCR Not Detected Stool EPEC (PCR) Not Detected Stool EAEC (PCR) Not Detected Stl E. histolytica PCR Not Detected Stool Giardia Lamblia PCR Not Detected Stl P. shigelloides PCR Not Detected Stool Salmonella PCR Not Detected Stool Sapovirus (PCR) Not Detected Stl Shigella/EIEC PCR Not Detected St Y.enterocolitica PCR Not Detected Stool Vibrio (PCR) Not Detected Stl Vibrio cholerae PCR Not Detected Stl Norovirus GI/GII PCR Not Detected Assessment and Plan (1) Colitis: Status: Acute (2) Abdominal pain: Status: Acute Plan 52F PMH osteoarthritis complicated by chronic pain, mood disorder, obesity, hld, htn, presented with back and right sided abd pain. acute right sided colitis, persistent pain and diarrhea Improving slowly, having more pain today negative stool studies continue zosyn pain control To do CT abd w contrast get surgery eval full liq diet, advance as tolerated GI input appreciated acute hypokalemia give replacement and follow BMP obesity weight loss recommended hepatic steatosis suspect bowser, monitor mood disorder lexapro htn losartan dvt prophylaxis - lovenox full code reason for continued hospitalization: pending tolerating PO, still with pain and diarrhea pending repeat images and surgery eval Time Spent With Patient Time: Total time managing care of this patient today ____ minutes. Quality Stroke Does the patient have a stroke diagnosis?: No VTE Prior VTE?: No VTE Risk Level:: Medical - moderate - high VTE Device Contraindication: Treatment Not Indicated VTE Drug Contraindication: N/A - Med Ordered
[2023-03-26] MEDS: iohexoL 350 MG/ML 100 ML INFUS..BTL 85 ML IV (12:37)
--- NOTE | 2023-03-26 14:38 | MHC.CM.PN ---
Per MD rounds no dc today. Patient is ordered for a CT today. Abdominal pain and diarrhea continue.DP home self care. Patient will arrange for transport home..
[2023-03-26 15:40] VITALS: BP 108/60; PULSE 84; RESP 14; TEMP 36.7; O2SAT 92
--- NOTE | 2023-03-26 16:02 | PM.EVENT ---
Event Note Date of Service: 03/26/23 Event Note: CT reviewed with Dr Harper - right sided colitis much improved less thickening of wall abd soft I explained above to patient - I anticipate improvement of pain clear liquid diet exam benign Time Spent With Patient Time: Total time managing care of this patient today ____ minutes.
[2023-03-26 19:40] VITALS: BP 128/60; PULSE 87; RESP 14; TEMP 36.1; O2SAT 93
[2023-03-26] MEDS: Loratadine 10 MG TABLET PO (22:26)
[2023-03-27 03:31] VITALS: BP 106/62; PULSE 83; RESP 16; TEMP 36.3; O2SAT 93
[2023-03-27] MEDS: Piperacillin Sodium/Tazobactam 3.375 GM in 0.9 % Sodium Chloride 50 ML IV ×4 (04:43→21:38)
[2023-03-27] MEDS: HYDROmorphone HCl 1 MG/ML SYRINGE IVPUSH ×2 (04:58→08:25)
[2023-03-27] MEDS: oxyCODONE HCl Immed Release 5 MG TABLET 10 MG PO ×3 (05:57→21:40)
[2023-03-27 06:00] LABS: Anion Gap 14 (12-20); Blood Urea Nitrogen < 3 mg/dL (9-16); Calcium 9.6 mg/dL (8.4-10.2); Carbon Dioxide 28 mmol/L (22-29); Chloride 104 mmol/L (96-108); Creatinine Clr Calc Pharmacy 105.1; Estimated Glomerular Filt Rate > 60; Glucose Random 96 mg/dL (60-115); Potassium 3.5 mmol/L (3.3-5.1); Sodium 142 mmol/L (135-145)
[2023-03-27 07:24] VITALS: BP 118/59; PULSE 80; RESP 16; TEMP 36.3; O2SAT 94
[2023-03-27] MEDS: Losartan Potassium 50 MG TABLET PO (08:10)
[2023-03-27] MEDS: hydrOXYzine HCL 25 MG TABLET PO ×3 (08:10→21:53)
[2023-03-27] MEDS: Cyclobenzaprine HCl 5 MG TABLET PO ×3 (08:10→21:52)
[2023-03-27] MEDS: Escitalopram Oxalate 20 MG TABLET PO (08:10)
[2023-03-27] MEDS: amLODIPine Besylate 10 MG TABLET PO (08:10)
[2023-03-27] MEDS: 0.9 % Sodium Chloride Flush 3 ML SYRINGE IVFLUSH ×3 (08:11→21:38)
--- NOTE | 2023-03-27 10:38 | HO.PM.IMPN ---
Subjective Subjective Date of Service: 03/27/23 Interval History: Seen and evaluated Feels better overall, less pain, mild epigastric discomfort still having episodes of pain and diarrhea no other overnight event Review of Systems Review of Systems: Yes all other systems are reviewed and are negative Physical Exam Vital Signs: Vital Signs: Last Vital Signs Temp 97.4 F 03/27/23 07:24 Pulse 80 03/27/23 07:24 Resp 16 03/27/23 07:24 BP 118/59 L 03/27/23 07:24 Pulse Ox 94 03/27/23 07:24 O2 Del Method Room Air 03/27/23 07:24 BMI result Body Mass Index 38.9 Const: Other: Constitutional : Awake, interactive, not in distress Neck : Normal inspection, Supple Cardiovascular : RRR, no JVP, no lower extremity edema Respiratory : good bilateral air entry, no crackles, wheezes or rhonchi Gastrointestinal: soft, lax, Normal bowel sounds, RLQ mild tenderness, no surgical signs Skin : Warm, Dry Neurological : Alert & oriented x3, No focal deficit Objective Data Active Medications Acetaminophen (Acetaminophen 325 Mg Tablet) 650 mg PO Q4H PRN PRN Reason: moderate pain Last Admin: 03/23/23 21:09 Dose: 650 mg Documented By: EFRAIN Amlodipine Besylate (Amlodipine Besylate 10 Mg Tablet) 10 mg PO DAILY [facility]; Protocol Last Admin: 03/27/23 08:10 Dose: 10 mg Documented By: MELY Cyclobenzaprine HCl (Cyclobenzaprine Hcl 5 Mg Tablet) 5 mg PO TID PRN PRN Reason: for muscle spasm Last Admin: 03/27/23 08:10 Dose: 5 mg Documented By: MELY Escitalopram Oxalate (Escitalopram Oxalate 20 Mg Tablet) 20 mg PO DAILY [facility] Last Admin: 03/27/23 08:10 Dose: 20 mg Documented By: MELY Hydroxyzine HCl (Hydroxyzine Hcl 25 Mg Tablet) 25 mg PO TID PRN PRN Reason: for anxiety Last Admin: 03/27/23 08:10 Dose: 25 mg Documented By: MELY Piperacillin Sod/Tazobactam (Sod 3.375 gm/ Sodium Chloride) 50 mls @ 100 mls/hr IV Q6H [facility] Last Infusion: 03/27/23 10:35 Dose: 0 mls/hr Documented By: MELY Loratadine (Loratadine 10 Mg Tablet) 10 mg PO DAILY PRN PRN Reason: for congestion Last Admin: 03/26/23 22:26 Dose: 10 mg Documented By: ADDIS Losartan Potassium (Losartan Potassium 50 Mg Tablet) 50 mg PO DAILY [facility]; Protocol Last Admin: 03/27/23 08:10 Dose: 50 mg Documented By: MELY Oxycodone HCl (Oxycodone Hcl Immed Release 5 Mg Tablet) 10 mg PO Q8H [facility] Last Admin: 03/27/23 05:57 Dose: 10 mg Documented By: NEHAL Pharmacy Consult (Consult Rx Perform Med Rec) 1 each MISCELLANE ONCE PRN PRN Reason: Consult order Sodium Chloride (0.9 % Sodium Chloride Flush 3 Ml Syringe) 3 ml IVFLUSH QSHIFT [facility] Last Admin: 03/27/23 08:11 Dose: 3 ml Documented By: MELY Labs 03/26/23 09:12 03/27/23 05:36 Labs: Laboratory Results - last 24 hr 03/27/23 05:36 Anion Gap 14 Estim Creat Clear Calc 105.1 Estimated GFR > 60 Random Glucose 96 Calcium 9.6 Assessment and Plan (1) Colitis: Status: Acute Plan 52F PMH osteoarthritis complicated by chronic pain, mood disorder, obesity, hld, htn, presented with back and right sided abd pain. acute right sided colitis, persistent pain and diarrhea Improving slowly, having less pain today negative stool studies CRP trending down continue zosyn pain control repeated CT abd w contrast showing interval improvement in colitis surgery eval appreciated full liq diet, advance as tolerated GI following acute hypokalemia give replacement and follow BMP obesity weight loss recommended hepatic steatosis suspect bowser, monitor mood disorder lexapro htn losartan dvt prophylaxis - lovenox full code reason for continued hospitalization: pending tolerating PO, still with pain and diarrhea pending repeat images and surgery eval Time Spent With Patient Time: Total time managing care of this patient today ____ minutes. Quality Stroke Does the patient have a stroke diagnosis?: No VTE Prior VTE?: No VTE Risk Level:: Medical - moderate - high VTE Device Contraindication: Treatment Not Indicated VTE Drug Contraindication: N/A - Med Ordered
[2023-03-27] MEDS: HYDROmorphone HCl 0.5 MG/0.5 ML SYRINGE IVPUSH ×2 (12:26→17:39)
[2023-03-27 15:33] VITALS: BP 119/59; PULSE 81; RESP 18; TEMP 36.8; O2SAT 93
--- NOTE | 2023-03-27 18:30 | P.PNGS_ITS ---
Subjective Subjective Date of Service: 03/27/23 Interval history: pt feeling better, tolerating po diet with some toast Physical Exam Vital Signs: Vital Signs: Last Vital Signs Temp 98.3 F 03/27/23 15:33 Pulse 81 03/27/23 15:33 Resp 18 03/27/23 15:33 BP 119/59 L 03/27/23 15:33 Pulse Ox 93 03/27/23 15:33 O2 Del Method Room Air 03/27/23 15:33 BMI result Body Mass Index 38.9 GI: Other: mild tenderness right side abdo but no guarding or peritoneal signs Objective Data Active Medications Acetaminophen (Acetaminophen 325 Mg Tablet) 650 mg PO Q4H PRN PRN Reason: moderate pain Last Admin: 03/23/23 21:09 Dose: 650 mg Documented By: EFRAIN Amlodipine Besylate (Amlodipine Besylate 10 Mg Tablet) 10 mg PO DAILY [facility]; Protocol Last Admin: 03/27/23 08:10 Dose: 10 mg Documented By: MELY Cyclobenzaprine HCl (Cyclobenzaprine Hcl 5 Mg Tablet) 5 mg PO TID PRN PRN Reason: for muscle spasm Last Admin: 03/27/23 13:52 Dose: 5 mg Documented By: MELY Escitalopram Oxalate (Escitalopram Oxalate 20 Mg Tablet) 20 mg PO DAILY [facility] Last Admin: 03/27/23 08:10 Dose: 20 mg Documented By: MELY Hydromorphone HCl (Hydromorphone Hcl 0.5 Mg/0.5 Ml Syringe) 0.5 mg IVPUSH Q4H PRN; Protocol PRN Reason: Pain, Severe (Pain Scale 7-10) Last Admin: 03/27/23 17:39 Dose: 0.5 mg Documented By: MELY Hydroxyzine HCl (Hydroxyzine Hcl 25 Mg Tablet) 25 mg PO TID PRN PRN Reason: for anxiety Last Admin: 03/27/23 13:52 Dose: 25 mg Documented By: MELY Piperacillin Sod/Tazobactam (Sod 3.375 gm/ Sodium Chloride) 50 mls @ 100 mls/hr IV Q6H [facility] Last Infusion: 03/27/23 16:04 Dose: 0 mls/hr Documented By: MELY Loratadine (Loratadine 10 Mg Tablet) 10 mg PO DAILY PRN PRN Reason: for congestion Last Admin: 03/26/23 22:26 Dose: 10 mg Documented By: LYSZ Losartan Potassium (Losartan Potassium 50 Mg Tablet) 50 mg PO DAILY [facility]; Protocol Last Admin: 03/27/23 08:10 Dose: 50 mg Documented By: MELY Oxycodone HCl (Oxycodone Hcl Immed Release 5 Mg Tablet) 10 mg PO Q8H [facility] Last Admin: 03/27/23 13:51 Dose: 10 mg Documented By: MELY Pharmacy Consult (Consult Rx Perform Med Rec) 1 each MISCELLANE ONCE PRN PRN Reason: Consult order Sodium Chloride (0.9 % Sodium Chloride Flush 3 Ml Syringe) 3 ml IVFLUSH QSHIFT [facility] Last Admin: 03/27/23 16:06 Dose: 3 ml Documented By: MELY Labs 03/26/23 09:12 03/27/23 05:36 Labs: Laboratory Results - last 24 hr 03/27/23 05:36 Anion Gap 14 Estim Creat Clear Calc 105.1 Estimated GFR > 60 Random Glucose 96 Calcium 9.6 Procedures Date of Service Date of Service: 03/27/23 Progress Note: A&P Assessment and plan (1) Colitis: Status: Acute Assessment and Plan: 52 year old female with improving colitis - plan to advance diet and she should probably have a cscope in 4-6 weeks as an outpt. Time Spent With Patient Time: Total time managing care of this patient today ____ minutes. Quality Stroke Does the patient have a stroke diagnosis?: No VTE Prior VTE?: No VTE Risk Level:: Medical - moderate - high VTE Device Contraindication: Treatment Not Indicated VTE Drug Contraindication: N/A - Med Ordered
[2023-03-27 19:47] VITALS: BP 120/64; PULSE 83; RESP 18; TEMP 36.4; O2SAT 94
[2023-03-27] MEDS: Loratadine 10 MG TABLET PO (22:36)
[2023-03-28] MEDS: HYDROmorphone HCl 0.5 MG/0.5 ML SYRINGE IVPUSH ×2 (00:30→09:20)
[2023-03-28 03:56] VITALS: BP 122/68; PULSE 76; RESP 18; TEMP 36.6; O2SAT 93
[2023-03-28] MEDS: Piperacillin Sodium/Tazobactam 3.375 GM in 0.9 % Sodium Chloride 50 ML IV ×3 (03:59→15:31)
[2023-03-28 07:24] VITALS: BP 124/71; PULSE 83; RESP 16; TEMP 37; O2SAT 93
[2023-03-28] MEDS: oxyCODONE HCl Immed Release 5 MG TABLET 10 MG PO ×2 (08:26→13:01)
[2023-03-28] MEDS: Losartan Potassium 50 MG TABLET PO (08:27)
[2023-03-28] MEDS: amLODIPine Besylate 10 MG TABLET PO (08:27)
[2023-03-28] MEDS: Escitalopram Oxalate 20 MG TABLET PO (08:27)
[2023-03-28] MEDS: 0.9 % Sodium Chloride Flush 3 ML SYRINGE IVFLUSH ×2 (08:27→15:32)
[2023-03-28] MEDS: Cyclobenzaprine HCl 5 MG TABLET PO ×2 (08:30→13:01)
[2023-03-28] MEDS: hydrOXYzine HCL 25 MG TABLET PO ×2 (08:30→13:01)
[2023-03-28] MEDS: Acetaminophen 325 MG TABLET 650 MG PO (10:48)
--- NOTE | 2023-03-28 11:17 | P.PNIM_ITS ---
Subjective Subjective Date of Service: 03/28/23 Interval History: Seen and evaluated Feels better overall, less pain less episodes of pain and diarrhea tolerating toast no other overnight event Review of Systems Review of Systems: Yes all other systems are reviewed and are negative Physical Exam Vital Signs: Vital Signs: Last Vital Signs Temp 98.6 F 03/28/23 07:24 Pulse 83 03/28/23 07:24 Resp 16 03/28/23 07:24 BP 124/71 03/28/23 07:24 Pulse Ox 93 03/28/23 07:24 O2 Del Method Room Air 03/28/23 07:24 BMI result Body Mass Index 38.9 Const: Other: Constitutional : Awake, interactive, not in distress Neck : Normal inspection, Supple Cardiovascular : RRR, no JVP, no lower extremity edema Respiratory : good bilateral air entry, no crackles, wheezes or rhonchi Gastrointestinal: soft, lax, Normal bowel sounds, RLQ mild tenderness, no surgical signs Skin : Warm, Dry Neurological : Alert & oriented x3, No focal deficit Objective Data Active Medications Acetaminophen (Acetaminophen 325 Mg Tablet) 650 mg PO Q4H PRN PRN Reason: moderate pain Last Admin: 03/28/23 10:48 Dose: 650 mg Documented By: MANISHA Amlodipine Besylate (Amlodipine Besylate 10 Mg Tablet) 10 mg PO DAILY [facility]; Protocol Last Admin: 03/28/23 08:27 Dose: 10 mg Documented By: MANISHA Cyclobenzaprine HCl (Cyclobenzaprine Hcl 5 Mg Tablet) 5 mg PO TID PRN PRN Reason: for muscle spasm Last Admin: 03/28/23 08:30 Dose: 5 mg Documented By: MANISHA Escitalopram Oxalate (Escitalopram Oxalate 20 Mg Tablet) 20 mg PO DAILY [facility] Last Admin: 03/28/23 08:27 Dose: 20 mg Documented By: MANISHA Hydromorphone HCl (Hydromorphone Hcl 0.5 Mg/0.5 Ml Syringe) 0.5 mg IVPUSH Q4H PRN; Protocol PRN Reason: Pain, Severe (Pain Scale 7-10) Last Admin: 03/28/23 09:20 Dose: 0.5 mg Documented By: MANISHA Hydroxyzine HCl (Hydroxyzine Hcl 25 Mg Tablet) 25 mg PO TID PRN PRN Reason: for anxiety Last Admin: 03/28/23 08:30 Dose: 25 mg Documented By: MANISHA Piperacillin Sod/Tazobactam (Sod 3.375 gm/ Sodium Chloride) 50 mls @ 100 mls/hr IV Q6H [facility] Last Infusion: 03/28/23 10:01 Dose: 0 mls/hr Documented By: MANISHA Loratadine (Loratadine 10 Mg Tablet) 10 mg PO DAILY PRN PRN Reason: for congestion Last Admin: 03/27/23 22:36 Dose: 10 mg Documented By: NEHAL Losartan Potassium (Losartan Potassium 50 Mg Tablet) 50 mg PO DAILY [facility]; Protocol Last Admin: 03/28/23 08:27 Dose: 50 mg Documented By: MANISHA Oxycodone HCl (Oxycodone Hcl Immed Release 5 Mg Tablet) 10 mg PO Q8H [facility] Pharmacy Consult (Consult Rx Perform Med Rec) 1 each MISCELLANE ONCE PRN PRN Reason: Consult order Sodium Chloride (0.9 % Sodium Chloride Flush 3 Ml Syringe) 3 ml IVFLUSH QSHIFT [facility] Last Admin: 03/28/23 08:27 Dose: 3 ml Documented By: MANISHA Labs 03/26/23 09:12 03/27/23 05:36 Assessment and Plan (1) Colitis: Status: Acute Plan 52F PMH osteoarthritis complicated by chronic pain, mood disorder, obesity, hld, htn, presented with back and right sided abd pain. acute right sided colitis, persistent pain and diarrhea Improving slowly, having less pain today negative stool studies CRP trending down continue zosyn pain control repeated CT abd w contrast showing interval improvement in colitis surgery eval appreciated advance diet to regular GI following acute hypokalemia give replacement and follow BMP obesity weight loss recommended hepatic steatosis suspect bowser, monitor mood disorder lexapro htn losartan dvt prophylaxis - lovenox full code reason for continued hospitalization: pending tolerating PO, still with pain and diarrhea pending PO tolerance and pain control Time Spent With Patient Time: Total time managing care of this patient today ____ minutes. Quality Stroke Does the patient have a stroke diagnosis?: No VTE Prior VTE?: No VTE Risk Level:: Medical - moderate - high VTE Device Contraindication: Treatment Not Indicated VTE Drug Contraindication: N/A - Med Ordered
[2023-03-28 15:35] VITALS: BP 124/61; PULSE 80; RESP 16; TEMP 36.7; O2SAT 96
--- NOTE | 2023-03-28 15:47 | PM.DS ---
DS: Providers Provider Date of Service: 03/28/23 Date of admission: 03/22/23 09:56 Primary care physician: Jemal Mullen MD Consults: 03/22/23 08:42 Consult to Gastroenterology Stat Consulting Provider: Brant Stuart Reason for consultation: acute right colitis Has provider been notified: No 03/26/23 07:56 Consult to General Surgery Routine Consulting Provider: [facility] General Surgeons Reason for consultation: Colitis with worsening pain for kind eval and rec. DS: Diagnosis Discharge Diagnosis (1) Colitis: Status: Acute (2) Abdominal pain: Status: Acute (3) Acute hypokalemia: Status: Acute DS: Summary Hospital Course Hospital Course: Admission note HPI 52F PMH osteoarthritis complicated by chronic pain, mood disorder, obesity, hld, presented with back and right sided abd pain.? Two days prior to presentation patient was entirely asymptomatic.? On day prior to presentation started having right sided back pain that migrated to right side of abdomen.? Pain is 10 10, constant, denies fever, chills, previous episodes.? Has had some nausea vomiting.? In ED CT scan revealed right-sided colitis. Hospital course The patient was admitted for treatment of acute right sided colitis, persistent pain and diarrhea. CT scan showed evidence of colitis as reported below. started treatment with IVF, IV antibiotics and was kept npo. seen by GI specialist as negative stool studies, CRP trending down and fair pain control. But she continued to have pain, improving slowly as she was able to tolerate liquids first. A repeated CT abd w contrast showing interval improvement in colitis with surgery evaluation with no intervention recommended. her diet was advanced more with good tolerance as she started moving around more frequently walking steadily. She will follow with GI as outpatient for colonoscopy planning. To finish 10 days of Abx. Had acute hypokalemia corrected with replacement orally and IV. Continue antibiotics as prescribed advance diet slowly at home Follow with GI as outpatient for colonoscopy arrangements. Time Spent with Patient Time attestation: Total time managing care of this patient today ____ minutes. Discharge coordination time: Greater than 30 minutes Quality: Safe Use of Opioids Does Pt have an Active Cancer Diagnosis on the Problem List?: No Quality: Stroke Does the patient have a stroke diagnosis?: No Physical Exam Vital Signs: Vital Signs: Last Vital Signs Temp 98.1 F 03/28/23 15:35 Pulse 80 06/18/23 15:35 Resp 16 03/28/23 15:35 BP 124/61 03/28/23 15:35 Pulse Ox 96 03/28/23 15:35 O2 Del Method Room Air 03/28/23 15:35 BMI result Body Mass Index 38.9 Const: Other: Constitutional : Awake, interactive, not in distress Neck : Normal inspection, Supple Cardiovascular : RRR, no JVP, no lower extremity edema Respiratory : good bilateral air entry, no crackles, wheezes or rhonchi Gastrointestinal: soft, lax, Normal bowel sounds, RLQ no significant tenderness, no surgical signs Skin : Warm, Dry Neurological : Alert & oriented x3, No focal deficit DS: Data Imaging CT scan - abdomen: Radiologist's impression: ITS Impressions Abdomen/Pelvis CT 03/22/23 07:32 IMPRESSION: 1. Abnormal study. Marked mural thickening and pericolonic inflammatory changes are noted involving the right-sided colon starting from the level of the cecum to the hepatic flexure without evidence of any bowel obstruction, perforation or abscess formation. There are few shotty adjacent mesenteric lymph nodes noted. The appearance is nonspecific, may represent changes secondary to infection, inflammation as well as ischemia. Further differentiation cannot be made based on this imaging appearance alone. 2. Incidental note is also made of presence of mildly distended gallbladder associated with gallstones, diffuse fatty replacement of the pancreas, mild diffuse hepatic steatosis and bilateral sub-5 mm nonobstructing renal calculi and bilateral renal cortical cysts and presence of a linear partially included radiopaque foreign body within the soft tissues at the proximal left thigh. This critical result was discussed with Dr. Carter at 7:55 AM on 03/22/2023 and it was ascertained that the content and urgency of the report was understood at the time of direct communication. Fleischner guidelines were followed. Abdomen/Pelvis CT 03/23/23 14:45 IMPRESSION: 1. Moderate mural thickening involving mid ascending colon with pericolic fat stranding and mild distention of cecum. There is no free air to suspect any perforation or abscess. Findings are most suggestive of inflammatory or infectious bowel etiology. Underlying colonic lesion is considered less likely however a follow-up can be performed with endoscopy or a CT in 3-4 weeks 2. Bilateral nonobstructive renal calculi. 3. Cholelithiasis without wall thickening or pericholecystic fluid collection. 4. Small free fluid in the cul-de-sac. 5. Bibasilar atelectasis with small right loculated pleural effusion or thickening. Fleischner guidelines were followed. Abdomen/Pelvis CT 03/26/23 12:39 IMPRESSION: Improved colitis of the cecum and proximal right colon from 03/23/2023 exam. Enlarged fatty liver. Slightly enlarged gallbladder and gallstones. These findings are similar to prior exam. Bilateral small renal stones.. Fleischner guidelines were followed. Discharge Plan Discharge Anticipated Discharge Date/Time: 03/28/23 15:43 Patient Disposition: Home, Self-Care Discharge Diagnosis: Acute colitis Referrals: Jemal Mullen MD [Primary Care Provider] - 1 Week Discharge Medications: New oxycodone 5 mg Tablet 10 mg PO Q8H PRN (Reason: Pain (Scale Score 7-10)) Qty: 24 0RF Rx Instructions: Partial Fill upon patient request. amoxicillin-pot clavulanate 875-125 mg tablet 1 tab PO BID Qty: 6 0RF Continued acetaminophen 325 mg tablet 650 mg PO QID PRN (Reason: pain) 30 Days Qty: 240 6RF escitalopram oxalate 20 mg tablet 20 mg PO DAILY 30 Days Qty: 30 3RF docusate sodium 100 mg capsule 100 mg PO BID PRN (Reason: constipation) 30 Days Qty: 60 3RF amlodipine [Norvasc] 10 mg tablet 10 mg PO DAILY 30 Days Qty: 90 3RF cetirizine 10 mg tablet 10 mg PO DAILY PRN (Reason: for congestion) Qty: 90 2RF hydroxyzine HCl 25 mg tablet 25 mg PO TID PRN (Reason: for anxiety) Qty: 90 1RF cyclobenzaprine 5 mg tablet 5 mg PO TID PRN (Reason: for muscle spasm) Qty: 90 0RF losartan 50 mg tablet 50 mg PO DAILY 30 Days Qty: 90 2RF oxycodone 10 mg tablet 10 mg PO Q8H 14 Days Qty: 42 0RF Discharge Orders: Discharge Order (Routine); Ordered 03/28/23 Ordered By: Grzegorz Hogan Diet: Advance to usual diet Activity on Discharge: As tolerated Stand Alone Forms: Patient Portal Discharge page Care Plan Goals: Read below Health Concerns: Read below Plan of Treatment: Read below Assessment: You were admitted for evaluation of abdominal pain. Found to have infection of your colon treated with IV antibiotics with good response over the coarse of hospital stay. Evaluated by surgery and gastroenterology teams who recommended no interventions while inpatient. Continue antibiotics as prescribed advance diet slowly at home Follow with GI as outpatient for colonoscopy arrangements.
--- NOTE | 2023-03-28 16:12 | MHC.CM.PN ---
PT TO DC HOME TODAY WITH NO SERVICES PT TO ARRANGE TRANSPORT
== END 2023-03-28 17:13 | disposition home or self-care (01) | DRG 249 ==
LOC: HO.ED 08:24 → HO.EDOVER 10:07 → HO.S3 11:07
PROVIDERS: Emergency Medicine Emergency Medical Services; Internal Medicine Gastroenterology; Surgery; Admitting Provider Internal Medicine; Emergency Provider Emergency Medicine; PCP Internal Medicine; Visit Provider Student in an Organized Health Care Education/Training Program
DX: K52.89 Other specified noninfective gastroenteritis and colitis (principal); K75.81 Nonalcoholic steatohepatitis (NASH); E66.9 Obesity, unspecified; G89.29 Other chronic pain; E87.6 Hypokalemia; E78.00 Pure hypercholesterolemia, unspecified; F39 Unspecified mood [affective] disorder; M19.90 Unspecified osteoarthritis, unspecified site; Z68.38 Body mass index [BMI] 38.0-38.9, adult; Z87.891 Personal history of nicotine dependence; Z79.899 Other long term (current) drug therapy
CPT/HCPCS: 36415; 74176; 74177; 80048; 80076; 81003; 83690; 83735; 85025; 85027; 86140; 87507; 93005; 99285; J1170; J2405; J2543; Q9967

== ENCOUNTER 2023-04-12 13:20 | Day surgery (SDC) | payer OTHER, SELFPAY ==
[2023-04-08 08:59] VITALS: BMI 38.3
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
[2023-04-12 13:57] VITALS: BP 149/76; PULSE 91; RESP 18; TEMP 36.6; O2SAT 97
--- NOTE | 2023-04-12 14:34 | PC.NURSE ---
report given to Daina INTERNAL COMBUSTION ENGINEER at this time.
--- NOTE | 2023-04-12 15:01 | MHC.SHP ---
Pre-Procedural Eval Section A Date of Service: 04/12/23 The patient is an INPATIENT: No The History & Physical has been completed within 30 days and I have reviewed it.: No Section B Chief Complaint: Screening Relevant Family History (Specify if Yes): No Relevant Social History: Tobacco Use (former smoker) Present Medications: see Short Stay Collaborative assessment Medical History: Significant History (Back pain Benign essential hypertension Environmental allergies Frequent headaches Hx of iron deficiency anemia Hyperglycemia Left leg pain Lesion of femoral nerve, left lower limb Lumbar degenerative disc disease Medial epicondylitis of right elbow Obesity (BMI 30-39.9) Pure hypercholesterolemia Re) History of Previous Operations: Relevant previous surgery/procedure and date(s) (Hx of knee surgery Hx of shoulder surgery S/p bilateral myringotomy with tube placement Status post correction of deviated nasal septum) Allergies: Allergies Allergy/AdvReac Type Severity Reaction Status Date / Time cephalexin Allergy Severe Anaphylaxis Verified 04/12/23 14:09 Sulfa (Sulfonamide Allergy Intermediate hives Verified 04/12/23 14:09 Antibiotics) sulfamethoxazole Allergy Intermediate RASH Verified 04/12/23 14:09 [From BACTRIM] trimethoprim [From BACTRIM] Allergy Intermediate RASH Verified 04/12/23 14:09 Review of Systems Sugical H&P ROS: Negative: Constitution, Cardiovascular and Respiratory and Yes, Specify: Gastrointestinal (recent episode of ischemic colitis) Exam Surgical H&P Exam: Normal: Heart, Normal: Lungs, Normal: Extremities and Normal: Abdomen Plan Diagnosis/Plan: Unchanged I have reviewed the history and physical and performed a pertinent physical examination on my patient. No changes have occurred unless specified. Time Spent With Patient Time: Total time managing care of this patient today ____ minutes.
--- NOTE | 2023-04-12 15:49 | W.PM.OPN ---
Operative Note Operative Note Date of Service: 04/12/23 Narrative: COLONOSCOPY TILL CECUM WITH BIOPSIES AND SNARE POLYPECTOMY Pre-op diagnosis: colon cancer screening, recent episode of colitis Post-op diagnosis:? colon polyp, diverticulosis, hemorrhoids, resolving colitis right colon Endoscopist:? Ashwin Juarez MD Anesthesia:?MAC Consent: Indications for the procedure and potential complications of bleeding, perforation, reaction to medications and missed diagnosis were discussed with the patient and informed consent was obtained. Instrument: Olympus PCF H 190 L variable stiffness pediatric colonoscope Monitoring: Vital signs and clinical assessment, intermittent blood pressure monitoring, continuous EKG monitoring, Pulse oximetry and Carbon Dioxide monitoring were done throughout the procedure. Please see anesthesia flowsheet. Colon withdrawl time was 25 minutes. Procedure: The patient was placed in the left lateral decubitis position and pre-procedure medications were administered. After a digital rectal examination of the ano-rectum, the video colonoscope was inserted into the rectum and advanced through the colon to the cecum. The colonoscope was slowly withdrawn in a retrograde panoramic fashion and the colon mucosa was carefully examined including a retroflexed view of the rectum. Findings and interventions are described below. Procedure Difficulty: colon was long and tortuous and there was some loop formation Findings: Terminal Ileum: Not evaluated Cecum: Normal Ascending Colon: Focal area of edematous folds with ulcerations covered with exudate in the mid ascending colon at 80 cms (likely resolving ischemic colitis) - multiple biopsies were obtained. Transverse Colon: Normal Descending Colon: Normal Sigmoid Colon: A 15 mm sessile polyp - removed with a hot snare. Mild diverticulosis Rectum: Linear erosions with a few aphthoid ulcers in the distal rectum - biopsies were obtained to check for proctitis. Ano-rectum: Moderate internal hemorrhoids Colon preparation: Good after copious irrigation and fair at the hepatic and splenic flexures Impression and Post Procedure Diagnosis: Colonoscopy Findings: One medium sized polyp removed Focal area of edematous folds with ulcerations covered with exudate in the mid AC - likely resolving ischemic colitis and less likely IBD. Linear erosions with a few aphthoid ulcers in the distal rectum - biopsies were obtained to check for proctitis. Mild diverticulosis seen in the sigmoid colon Moderate hemorrhoids on retroflexed exam. Plan: Await pathology results Patient has an appointment on 05/06/23 in the GI Clinic with Rubeela Larry, M.D. Repeat Colonoscopy interval based on path results - in 3-5 years if polyps are adenomatous and 10 years if polyps are hyperplastic. Above findings were reviewed with the patient and colon polyps and ischemic colitis handouts were given in the discharge area Pt continues to experience postprandial abdominal cramps and bloating - though her symptoms are gradually improving.
[2023-04-12 17:00] VITALS: BP 124/52; PULSE 83; RESP 10; TEMP 36.6; O2SAT 95
[2023-04-12 17:21] VITALS: BP 126/78; PULSE 83; RESP 20; TEMP 36.3; O2SAT 96
== END 2023-04-12 17:30 | disposition home or self-care (01) ==
PROVIDERS: PCP Internal Medicine; Visit Provider Internal Medicine Gastroenterology
PROC: 0DJD8ZZ Inspection of Lower Intestinal Tract, Via Natural or Artificial Opening Endoscopic (ICD-10-PCS; CPT 45378; principal; 2023-04-12 15:20)
DX: Z12.11 Encounter for screening for malignant neoplasm of colon (principal); D12.5 Benign neoplasm of sigmoid colon; K57.30 Diverticulosis of large intestine without perforation or abscess without bleeding; K56.2 Volvulus; K55.9 Vascular disorder of intestine, unspecified; K64.8 Other hemorrhoids; Z88.2 Allergy status to sulfonamides
CPT/HCPCS: 45385; 45380; 88305; J3010

== ENCOUNTER 2023-05-06 07:36 | Outpatient (AMB) | payer OTHER, SELFPAY ==
--- NOTE | 2023-05-06 07:42 | A.OFFVIS_ITS ---
Vital Signs 05/06/23 07:46 Height 5 ft 4 in Weight 217 lb BMI 37.2 BP 127/60 Blood Pressure Location Lt brachial Position Sitting Pulse 77 Intake Visit Reasons: S/P [place]; Dr. Juarez Intake Note: Patient follow up for Colonoscopy results. Patient denies any GI issues. Production Grader Required: No Accompanied by: Self / Same As Patient Allergies cephalexin Allergy (Severe, Verified 02/14/24 09:18) Anaphylaxis Sulfa (Sulfonamide Antibiotics) Allergy (Intermediate, Verified 02/14/24 09:18) hives sulfamethoxazole [From BACTRIM] Allergy (Intermediate, Verified 02/14/24 09:18) RASH trimethoprim [From BACTRIM] Allergy (Intermediate, Verified 02/14/24 09:18) RASH HPI HPI S/P [place]; Dr. Juarez: Details: GI clinic visit for this 52 YF for FU after hospitalization for ischemic colitis and discuss colonoscopy results ENDOSCOPIC STUDIES: 04/12/23 COLONOSCOPY SHOWED: One medium sized polyp removed Focal area of edematous folds with ulcerations covered with exudate in the mid AC - likely resolving ischemic colitis and less likely IBD. Linear erosions with a few aphthoid ulcers in the distal rectum - biopsies were obtained to check for proctitis. Mild diverticulosis seen in the sigmoid colon Moderate hemorrhoids on retroflexed exam. Plan: Repeat Colonoscopy interval based on path results - in 3-5 years if polyps are adenomatous and 10 years if polyps are hyperplastic. Above findings were reviewed with the patient and colon polyps and ischemic colitis handouts were given in the discharge area Pt continues to experience postprandial abdominal cramps and bloating - though her symptoms are gradually improving. TODAY'S VISIT: Colonoscopy results reviewed. Did not feel hungry for a few days after the colonoscopy. Feels normal now Patient denies symptoms of heartburn, dysphagia, nausea, vomiting, change in appetite or weight. Denies recent change in bowel habits, constipation, diarrhea, black stools or rectal bleeding. Patient denies major cardiac or pulmonary problems, loud snoring or sleep apnea Denies problems with anesthesia in the past. Denies being on chronic anticoagulation. Patient denies known family history of colon polyps, colon cancer or other GI malignancies. 52 YF with osteoarthritis complicated by chronic pain, mood disorder, obesity, hld, [place] [facility] [place] with back and right sided abd pain.? Pt gives a hx of intermittent back pain for which she takes oxycodone Pt reports she started having back pain yesterday (03/21/23) around noon which later migrated to right abdomen. She used a heating pad and took Flexeril without relief. Pt reports the pain as constant (with intermittent waves of increased pain), stabbing in character and > than 10/10 in intensity Pt admits to associated nausea and vomiting and has been unable to eat or drink anything without gagging except ice chips and sips of fluids. Drinking fluids can make the pain worse. Patient denies fever or chills.? Pt had 2 soft to loose BMs yesterday (greenish in color) and denies having a BM today. She admits to passing gas without improvement in pain Pt denies having similar pain in the past. Pt denies any cardiac or pulmonary problems, loud snoring or sleep apnea. Patient denies smoking and admits to drinking off and on when she is in distress. 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.? Pt has a daughter, an adopted daughter and 2 step children. Patient's mom has kidney stones, gallbladder disease, coronary artery disease and history of colon polyps.? Patient denies known family history of IBD or GI malignancy. ? Labs in the ED showed? leukocytosis with left shift, Normal lipase PFSH Medical History GERD (gastroesophageal reflux disease) Benign essential hypertension Sacroiliitis Pure hypercholesterolemia Obesity (BMI 30-39.9) Hyperglycemia Allergic rhinitis Left leg pain Frequent headaches Lesion of femoral nerve, left lower limb Environmental allergies Hx of iron deficiency anemia Back pain Restless leg syndrome Medial epicondylitis of right elbow Right elbow pain Lumbar degenerative disc disease Surgical History Hx laparoscopic cholecystectomy (01/27/24) S/P placement of nerve stimulator History of esophagogastroduodenoscopy (EGD) Hx of colonoscopy Hx of knee surgery S/p bilateral myringotomy with tube placement History of nasal surgery Hx of shoulder surgery Family History Mother Hypertension Father No problems noted. 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) Hearing needs: No Vision needs: Yes (Glasses) Review of Systems Const All systems reviewed & are unremarkable except as noted in HPI and below Physical Exam Vital Signs: Last Vital Signs Pulse 77 05/06/23 07:46 BP 127/60 05/06/23 07:46 BMI result Body Mass Index 37.2 Const General: healthy appearing and no acute distress Nutritional Appearance: obese Orientation/consciousness: patient oriented x3 Limitations: no limitations HEENT Head: Yes normal to inspection Ears: hearing grossly normal bilaterally Eyes Sclerae: sclerae normal Pupils: Equal, round and reactive pupils present Neck Neck: Yes normal visual inspection Chest Chest palpation & inspection: normal inspection of the chest Resp Effort & Inspection: normal respiratory effort Auscultation: clear to auscultation bilaterally Cardio Palpation: normal PMI Rate: regular rate Rhythm: regular rhythm Heart sounds: S1 normal heart sound present, S2 normal heart sound present and no murmurs GI Palpation (GI): Soft to palpation, nontender and No hepatosplenomegaly present Auscultation: normal bowel sounds Rectal Exam - Female: deferred Skin General skin exam: no rashes or lesions noted Neuro General: patient oriented x3, gait normal and moves all extremities Cranial nerves: Yes Equal, round and reactive pupils present Psych Appearance: grossly normal Mental Status: mental status grossly normal Assessment & Plan Assessment & Plan (1) Right sided abdominal pain: Code(s): R10.9 - Unspecified abdominal pain Category: Medical (2) Colon cancer screening: Comment: 04/2023 Colonoscopy showed resolving focal colitis in the ascending colon and one medium sized polyp was removed. Repeat colonoscopy is advised in 3 years - due 04/2026 Code(s): Z12.11 - Encounter for screening for malignant neoplasm of colon Category: Medical (3) History of ischemic colitis: Code(s): Z87.19 - Personal history of other diseases of the digestive system Category: Medical Plan 52 YF with osteoarthritis complicated by chronic pain, mood disorder, obesity, hld, [place] [facility] [place] with back and right sided abd pain.? Pt reports the pain as constant (with intermittent waves of increased pain), stabbing in character and > than 10/10 in intensity Pt admits to associated nausea and vomiting and has been unable to eat or drink anything without gagging except ice chips and sips of fluids. Drinking fluids can make the pain worse. Patient denies fever or chills.? Pt had 2 soft to loose BMs yesterday (greenish in color) and denies having a BM today. She admits to passing gas without improvement in pain Abd CT scan showed?Marked mural thickening and pericolonic inflammatory changes are noted involving the right-sided colon starting from the level of the cecum to the hepatic flexure without evidence of any bowel obstruction, perforation or abscess formation. There are few shotty adjacent mesenteric lymph nodes noted. Patient's symptoms are likely due to infectious colitis versus ischemic colitis 04/12/23 COLONOSCOPY SHOWED: One medium sized polyp removed Focal area of edematous folds with ulcerations covered with exudate in the mid AC - likely resolving ischemic colitis and less likely IBD. Linear erosions with a few aphthoid ulcers in the distal rectum - biopsies were obtained to check for proctitis. Mild diverticulosis seen in the sigmoid colon Moderate hemorrhoids on retroflexed exam. Plan: Repeat Colonoscopy interval based on path results - in 3-5 years if polyps are adenomatous and 10 years if polyps are hyperplastic. Above findings were reviewed with the patient and colon polyps and ischemic colitis handouts were given in the discharge area Pt continues to experience postprandial abdominal cramps and bloating - though her symptoms are gradually improving. FU in 12 months Coding Level of Care Code Est Pt Level 4 (66220) Diagnoses Right sided abdominal pain R10.9 Colon cancer screening Z12.11 History of ischemic colitis Z87.19 Time Spent (min) 23
[2023-05-06 07:46] VITALS: BP 127/60; PULSE 77; BMI 37.2
== END 2023-05-06 08:03 | disposition home or self-care (01) ==
PROVIDERS: PCP Internal Medicine; Visit Provider Internal Medicine Gastroenterology
DX: R10.9 Unspecified abdominal pain (principal); Z12.11 Encounter for screening for malignant neoplasm of colon; Z87.19 Personal history of other diseases of the digestive system
CPT/HCPCS: 99499

== ENCOUNTER → 2023-05-06 07:36 | Outpatient (BNVA) | payer OTHER, SELFPAY | PROVIDERS: PCP Internal Medicine; Visit Provider Internal Medicine Gastroenterology ==

== ENCOUNTER 2023-06-11 10:44 | Outpatient (REF) | payer OTHER, SELFPAY ==
--- NOTE | ~2023-06-11 | MM_ITS ---
EXAMINATION: MM SCREENING DIGITAL BREAST TOMOSYNTHESIS, BILATERAL CLINICAL INFORMATION: Screening. Asymptomatic. COMPARISON: Mammography: This study is compared with prior exams dating back to TECHNIQUE: Digital breast tomosynthesis is performed in both the craniocaudal and mediolateral oblique views along with computer-aided detection (CAD). Synthesized 2D images are generated from the tomosynthesis. FINDINGS: There are scattered areas of fibroglandular density (ACR BI-RADS breast composition Category b). At the upper inner quadrant of the right breast, there is an asymmetry for which additional mammographic and targeted sonographic evaluation is advised. The remainder of the right breast is normal. In the left breast, there are no significant masses, abnormal calcifications, or other abnormalities. MM/MM tomosynthesis screening BI IMPRESSION: Asymmetry of the right breast warrants additional mammographic and targeted sonographic evaluation. No mammographic signs of malignancy left breast. ASSESSMENT: BI-RADS BI-RADS 0 - Incomplete: Needs additional Imaging. RECOMMENDATION: Routine annual mammography screening. 1 year F/U This examination should not preclude the clinical evaluation of a suspicious palpable abnormality. This patient's information was entered into a reminder system with a target due date for their next mammogram.
== END 2023-06-11 10:45 | disposition home or self-care (01) ==
LOC: HO.MAMMO 10:44
PROVIDERS: PCP Internal Medicine; Visit Provider Internal Medicine
DX: Z12.31 Encounter for screening mammogram for malignant neoplasm of breast (principal)
CPT/HCPCS: 77063; 77067

== ENCOUNTER → 2023-06-11 11:00 | Outpatient (BNV) | payer OTHER, SELFPAY | PROVIDERS: PCP Internal Medicine; Visit Provider Radiology Diagnostic Radiology | DX: Z12.31 Encounter for screening mammogram for malignant neoplasm of breast (principal) | CPT/HCPCS: 77063; 77067 ==

== ENCOUNTER 2023-06-25 08:21 | Outpatient (REF) | payer OTHER, SELFPAY ==
--- NOTE | ~2023-06-25 | US_ITS ---
EXAMINATION: MM DIAGNOSTIC DIGITAL BREAST TOMOSYNTHESIS, RIGHT US BREAST LIMITED, RIGHT MAMMOGRAPHY: CLINICAL INFORMATION: Follow-up focal asymmetry right breast upper outer quadrant seen on screening exam. COMPARISON: Mammography: 06/11/2023. TECHNIQUE: Digital breast tomosynthesis is performed in a full-field 3-D digital right mediolateral view, as well as 2 right spot compression 3-D MLO views, along with computer-aided detection (CAD). Synthesized 2D images are generated from the tomosynthesis. FINDINGS: There are scattered areas of fibroglandular density (ACR BI-RADS breast composition Category b). Diagnostic views demonstrate persistence of an oval focal asymmetry in the upper outer quadrant right breast, mid depth, approximately 10 cm from the nipple. This will be evaluated with ultrasound. No additional persistent suspicious abnormalities in the right breast. There is linear scarring from prior traumatic event. ULTRASOUND: CLINICAL INFORMATION: Follow-up focal asymmetry right breast upper outer quadrant seen on screening exam. COMPARISON: None relevant. TECHNIQUE: Targeted sonographic evaluation was performed of the right breast upper outer quadrant using a high frequency linear transducer. Selected archived documentation. FINDINGS: RIGHT BREAST: There is a mixture of fatty and fibroglandular tissue. No suspicious mass is seen. There is no pathologic acoustic shadowing. There is a simple cyst at the 9:00 axis, 8 cm from the nipple, measuring 4 x 4 x 4 mm, correlating with the abnormality seen on mammography. US/US breast RT limited mamm only IMPRESSION: Simple cyst right breast 9:00 axis, correlating with the mammographic focus of concern. This is benign. There are no findings suspicious for malignancy. Recommend the patient resume annual screening. OVERALL ASSESSMENT: Mammography: BI-RADS 2 - Benign Findings Ultrasound: BI-RADS 2 - Benign Findings RECOMMENDATION: 1 year F/U This patient's information was entered into a reminder system with a target due date for their next mammogram.
== END 2023-06-25 08:22 | disposition home or self-care (01) ==
LOC: HO.MAMMO 08:21
PROVIDERS: Visit Provider Internal Medicine
DX: N64.89 Other specified disorders of breast (principal)
CPT/HCPCS: 76642; 77061; 77065

== ENCOUNTER → 2023-06-25 08:30 | Outpatient (BNV) | payer OTHER, SELFPAY | PROVIDERS: Visit Provider Radiology Diagnostic Radiology | DX: R92.2 Inconclusive mammogram (principal) | CPT/HCPCS: 76642; 77061; 77065 ==

== ENCOUNTER 2023-07-08 11:49 | Outpatient (AMB) | payer OTHER, SELFPAY ==
[2023-07-08 11:53] VITALS: BP 106/82; PULSE 112; O2SAT 97; BMI 37.8
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
== END 2023-07-08 12:44 | disposition home or self-care (01) ==
PROVIDERS: PCP Internal Medicine; Visit Provider Internal Medicine
DX: R10.9 Unspecified abdominal pain (principal); M47.812 Spondylosis without myelopathy or radiculopathy, cervical region; I10 Essential (primary) hypertension; E78.00 Pure hypercholesterolemia, unspecified; J30.9 Allergic rhinitis, unspecified
CPT/HCPCS: 99214

== ENCOUNTER 2023-08-09 06:54 | Outpatient (REF) | payer OTHER, SELFPAY ==
--- NOTE | ~2023-08-09 | CT_ITS ---
EXAMINATION: CT ABDOMEN AND PELVIS WITH CONTRAST CLINICAL INFORMATION: Recurrent right-sided abdominal pain, rule out is inflammatory bowel disease/ischemic colitis COMPARISON: March 26March 22 and 03/23/2023 TECHNIQUE: Multidetector volumetric images were obtained from the superior aspect of the liver through the pubic symphysis following administration 85 mL of Omnipaque 350 intravenous contrast. Sagittal and coronal reformatted images were obtained on the technologist's workstation. Oral contrast: No This CT examination was performed using dose optimization techniques as appropriate, variously including the following: *Automated exposure control *Adjustment of mA and/or kV according to patient size (this includes techniques or standardized protocols for targeted exams where dose is matched to indication/reason for exam; i.e. extremities or head) *Use of iterative reconstruction technique DLP: 746 mGy-cm FINDINGS: LUNG BASES: The visualized lung bases are unremarkable. LIVER, GALLBLADDER, AND BILIARY TREE: Liver is of low attenuation due to hepatic steatosis without intrahepatic ductal dilatation or masses . There is partially calcified gallstone seen in the distended gallbladder, without pericholecystic fluid collection sludge. There is no wall thickening. PANCREAS: Pancreas is partially fatty replaced SPLEEN: Unremarkable. ADRENAL GLANDS: Unremarkable. KIDNEYS AND URETERS: There are stable small bilateral renal cysts, with the largest 2.3 cm seen in the right lower pole. There is no hydroureteronephrosis or nephrolithiasis BLADDER: Unremarkable. GASTROINTESTINAL TRACT: Seen on the previous examinations ascending colitis has been resolved, there is moderate amount of retained stool in the colon. Normal appendix visualized. Small bowel loops are unremarkable. Mesentery is normal. ABDOMINAL WALL: No significant hernia is appreciated. LYMPH NODES: Normal. VASCULAR: Unremarkable. PELVIC VISCERA: Unremarkable. OSSEOUS STRUCTURES: Unremarkable. CT/CT abdomen pelvis w IV con IMPRESSION: 1. Resolution of ascending colitis. 2. Hepatic steatosis. 3. Cholelithiasis. 4. Stable small renal cysts. Fleischner guidelines were followed.
[2023-08-09] MEDS: Barium Sulfate Oral (Vanilla) 450 ML ORAL.SUSP 900 ML PO (09:03)
[2023-08-09] MEDS: iohexoL 350 MG/ML 100 ML INFUS..BTL IV (09:04)
[2023-08-09 09:58] LABS: Creatinine POC 0.4 mg/dL (0.5-1.4); GFR POC 60
== END 2023-08-09 06:55 | disposition home or self-care (01) ==
LOC: HO.CT 06:54
PROVIDERS: Visit Provider Internal Medicine Gastroenterology
DX: R10.9 Unspecified abdominal pain (principal); Z87.19 Personal history of other diseases of the digestive system
CPT/HCPCS: 74177; 82565; Q9967

== ENCOUNTER 2023-08-20 07:21 | Outpatient (AMB) | payer OTHER, SELFPAY ==
--- NOTE | 2023-08-20 07:27 | A.OFFVIS_ITS ---
Vital Signs 08/20/23 07:29 Height 5 ft 4 in Weight 222 lb BMI 38.1 BP 125/61 Blood Pressure Location Lt brachial Position Sitting Pulse 93 Intake Visit Reasons: CT scan results Intake Note: Patient follow up for CT scan results. Patient denies any GI issues. Sock Lining Examiner Required: No Accompanied by: Self / Same As Patient Allergies cephalexin Allergy (Severe, Verified 05/04/24 09:55) Anaphylaxis Sulfa (Sulfonamide Antibiotics) Allergy (Intermediate, Verified 05/04/24 09:55) hives sulfamethoxazole [From BACTRIM] Allergy (Intermediate, Verified 05/04/24 09:55) RASH trimethoprim [From BACTRIM] Allergy (Intermediate, Verified 05/04/24 09:55) RASH Medication List - Last Reconciled 08/20/23 by Ashwin Juarez MD acetaminophen 650 mg (2 x 325 mg) PO QID PRN 30 days amlodipine (Norvasc) 10 mg PO DAILY 30 days cetirizine 10 mg PO DAILY PRN cyclobenzaprine 5 mg PO TID PRN docusate sodium 100 mg PO BID PRN 30 days escitalopram oxalate 20 mg PO DAILY 30 days hydroxyzine HCl 25 mg PO TID PRN losartan 50 mg PO DAILY 30 days ondansetron 4 mg PO Q8H PRN 15 days oxycodone 10 mg PO Q8H 14 days oxycodone 15 mg PO Q8H PRN [address] scan results: Details: GI clinic visit for this 53 YF for FU after an episode of right sided abdominal pain. Patient was hospitalized at [facility] in March 2023 with right-sided abdominal pain diagnosed with ischemic colitis. She had recurrent pain in May and June and was treated with p.o. Augmentin for 10 days with resolution. IMAGING STUDIES: 07/[address] SCAN SHOWED: 1. Resolution of ascending colitis. 2. Hepatic steatosis. 3. Cholelithiasis. 4. Stable small renal cysts. ENDOSCOPIC STUDIES: 04/12/23 COLONOSCOPY SHOWED: One medium sized polyp removed Focal area of edematous folds with ulcerations covered with exudate in the mid AC - likely resolving ischemic colitis and less likely IBD. Linear erosions with a few aphthoid ulcers in the distal rectum - biopsies were obtained to check for proctitis. Mild diverticulosis seen in the sigmoid colon Moderate hemorrhoids on retroflexed exam. Plan: Repeat Colonoscopy interval based on path results - in 3-5 years if polyps are adenomatous and 10 years if polyps are hyperplastic. Above findings were reviewed with the patient and colon polyps and ischemic colitis handouts were given in the discharge area Pt continues to experience postprandial abdominal cramps and bloating - though her symptoms are gradually improving. BIOPSIES SHOWED: A. Colon, right, biopsy: Colonic mucosa with marked regenerative crypt changes, increased eosinophils, minimal active inflammation and marked reactive epithelial changes without a basal lymphoplasmacytic infiltrate or granulomas (see comment). B. Colon, sigmoid, polyp: Tubular adenoma; negative for high-grade dysplasia and carcinoma. C. Colon, rectum, biopsy: Colonic mucosa with minor crypt distortion, lymphoid aggregate, and congestion; negative for colitis/proctitis, granulomas and dysplasia. Comment: (A): Appearances suggest a healing/resolving mucosal injury rather than a chronic colitis; clinical correlation and follow-up warranted TODAY'S VISIT: Has been feeling better for the past few weeks and notes some improvement in her appetite. For the past 2 weeks she has been eating regular diet (bland) without post prandial pain Can have abdominal pain if she eats spicy food Pain was similar to pain during hospitalization and gets worse after eating. Denies radiation to the back or shoulder. Notes diarrhea when she has episodes of abdominal pain with 3-4 loose stools. Intermittent dysphagia to solids and liquids - drinks water to help it go down. Denies episodes of regurgitation. PAST VISITS: Colonoscopy results reviewed. Did not feel hungry for a few days after the colonoscopy. Feels normal now Patient denies symptoms of heartburn, dysphagia, nausea, vomiting, change in milan etite or weight. Denies recent change in bowel habits, constipation, diarrhea, black stools or rectal bleeding. Patient denies major cardiac or pulmonary problems, loud snoring or sleep apnea Denies problems with anesthesia in the past. Denies being on chronic anticoagulation. Patient denies known family history of colon polyps, colon cancer or other GI malignancies. 52 YF with osteoarthritis complicated by chronic pain, mood disorder, obesity, hld, seen at [facility] ED on 03/22/23 with back and right sided abd pain.? Pt gives a hx of intermittent back pain for which she takes oxycodone Pt reports she started having back pain yesterday (03/21/23) around noon which later migrated to right abdomen. She used a heating pad and took Flexeril without relief. Pt reports the pain as constant (with intermittent waves of increased pain), stabbing in character and > than 10/10 in intensity Pt admits to associated nausea and vomiting and has been unable to eat or drink anything without gagging except ice chips and sips of fluids. Drinking fluids can make the pain worse. Patient denies fever or chills.? Pt had 2 soft to loose BMs yesterday (greenish in color) and denies having a BM today. She admits to passing gas without improvement in pain Pt denies having similar pain in the past. Pt denies any cardiac or pulmonary problems, loud snoring or sleep apnea. Patient denies smoking and admits to drinking off and on when she is in distress. 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 Pt has a daughter, an adopted daughter and 2 step children. Patient's mom has kidney stones, gallbladder disease, coronary artery disease and history of colon polyps.? Patient denies known family history of IBD or GI malignancy. ? Labs in the ED showed? leukocytosis with left shift, Normal lipase PFSH Medical History GERD (gastroesophageal reflux disease) Benign essential hypertension Sacroiliitis Pure hypercholesterolemia Obesity (BMI 30-39.9) Hyperglycemia Allergic rhinitis Left leg pain Frequent headaches Lesion of femoral nerve, left lower limb Environmental allergies Hx of iron deficiency anemia Back pain Restless leg syndrome Medial epicondylitis of right elbow Right elbow pain Lumbar degenerative disc disease Surgical History Hx laparoscopic cholecystectomy (01/27/24) S/P placement of nerve stimulator History of esophagogastroduodenoscopy (EGD) Hx of colonoscopy Hx of knee surgery S/p bilateral myringotomy with tube placement History of nasal surgery Hx of shoulder surgery Family History Mother Hypertension Father No problems noted. 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) Hearing needs: No Vision needs: Yes (Glasses) Review of Systems Const All systems reviewed & are unremarkable except as noted in HPI and below Physical Exam Vital Signs: Last Vital Signs Pulse 93 08/20/23 07:29 BP 125/61 08/20/23 07:29 BMI result Body Mass Index 38.1 Const General: healthy appearing and no acute distress Nutritional Appearance: obese Orientation/consciousness: patient oriented x3 Limitations: no limitations HEENT Head: Yes normal to inspection Ears: hearing grossly normal bilaterally Eyes Sclerae: sclerae normal Pupils: Equal, round and reactive pupils present Neck Neck: Yes normal visual inspection Chest Chest palpation & inspection: normal inspection of the chest Resp Effort & Inspection: normal respiratory effort Auscultation: clear to auscultation bilaterally Cardio Palpation: normal PMI Rate: regular rate Rhythm: regular rhythm Heart sounds: S1 normal heart sound present, S2 normal heart sound present and no murmurs GI Palpation (GI): Soft to palpation, Tenderness to palpation present (GI) (Mild RUQ tenderness) and No hepatosplenomegaly present Auscultation: normal bowel sounds Rectal Exam - Female: deferred Skin General skin exam: no rashes or lesions noted Neuro General: patient oriented x3, gait normal and moves all extremities Cranial nerves: Yes Equal, round and reactive pupils present Psych Appearance: grossly normal Mental Status: mental status grossly normal Assessment & Plan Assessment & Plan (1) Right sided abdominal pain: Code(s): R10.9 - Unspecified abdominal pain Category: Medical (2) History of ischemic colitis: Code(s): Z87.19 - Personal history of other diseases of the digestive system Category: Medical (3) Chronic constipation: Code(s): K59.09 - Other constipation Category: Medical (4) Dysphagia, pharyngoesophageal phase: Code(s): R13.14 - Dysphagia, pharyngoesophageal phase Category: Surgical (5) GERD (gastroesophageal reflux disease): Code(s): K21.9 - Gastro-esophageal reflux disease without esophagitis Category: Medical (6) Gallstones: Code(s): K80.20 - Calculus of gallbladder without cholecystitis without obstruction Category: Medical Plan 53 YF with osteoarthritis complicated by chronic pain, mood disorder, obesity, hld, admitted to [facility] on 03/22/23 with back and right sided abd pain.? Pt reports the pain as constant (with intermittent waves of increased pain), stabbing in character and > than 10/10 in intensity Pt admits to associated nausea and vomiting and has been unable to eat or drink anything without gagging except ice chips and sips of fluids. Drinking fluids can make the pain worse. Patient denies fever or chills.? Pt had 2 soft to loose BMs yesterday (greenish in color) and denies having a BM today. She admits to passing gas without improvement in pain Abd CT scan showed?Marked mural thickening and pericolonic inflammatory changes are noted involving the right-sided colon starting from the level of the cecum to the hepatic flexure without evidence of any bowel obstruction, perforation or abscess formation. There are few shotty adjacent mesenteric lymph nodes noted. Patient's symptoms are likely due to infectious colitis versus ischemic colitis 08/20/23 Notes diarrhea when she has episodes of abdominal pain with 3-4 loose stools. Intermittent dysphagia to solids and liquids - drinks water to help it go down. Denies episodes of regurgitation. Pt was advised to schedule an EGD for evaluation of dysphagia and abdominal pain. FU in 3 months Orders: Orders NM hepatobiliary w pharm 08/20/23 R10.9 - Unspecified abdominal pain, K80.20 - Calculus of gallbladder without cholecystitis without obstruction Medications: New sennosides-docusate sodium 8.6-50 mg (Senna Plus) 1 tab-cap PO BEDTIME 60 caps 2RF 60 days K59.09 - Other constipation omeprazole 20 mg PO DAILY 60 caps 2RF 60 days K21.9 - Gastro-esophageal reflux disease without esophagitis, R13.14 - Dysphagia, pharyngoesophageal phase Coding Level of Care Code Est Pt Level 4 (29400) Diagnoses Right sided abdominal pain R10.9 History of ischemic colitis Z87.19 Chronic constipation K59.09 Dysphagia, pharyngoesophageal phase R13.14 GERD (gastroesophageal reflux disease) K21.9 Gallstones K80.20 Time Spent (min) 23
[2023-08-20 07:29] VITALS: BP 125/61; PULSE 93; BMI 38.1
== END 2023-08-20 08:02 | disposition home or self-care (01) ==
PROVIDERS: Visit Provider Internal Medicine Gastroenterology
DX: R10.9 Unspecified abdominal pain (principal); Z87.19 Personal history of other diseases of the digestive system; K59.09 Other constipation; R13.14 Dysphagia, pharyngoesophageal phase; K21.9 Gastro-esophageal reflux disease without esophagitis; K80.20 Calculus of gallbladder without cholecystitis without obstruction
CPT/HCPCS: 99499

== ENCOUNTER → 2023-08-20 07:21 | Outpatient (BNVA) | payer MEDICAID, SELFPAY | PROVIDERS: Visit Provider Internal Medicine Gastroenterology ==

== ENCOUNTER 2023-11-12 12:53 | Day surgery (SDC) | payer OTHER, SELFPAY ==
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
[2023-11-12 13:11] VITALS: BMI 39.2
[2023-11-12 13:21] VITALS: BP 121/74; PULSE 97; RESP 16; TEMP 36.1; O2SAT 95
[2023-11-12] MEDS: Lactated Ringers 1,000 ML 100 ML IVCONT (13:27)
--- NOTE | 2023-11-12 14:11 | MHC.SHP ---
Pre-Procedural Eval Section A - 24 Hr Update-Section A only Date of Service: 11/12/23 The patient is an INPATIENT: No The patient has been examined within 24 hours of the surgical procedure. The History & Physical has been completed within 30 days and I have reviewed it.: No Section B - Complete if H&P > 30 days Chief Complaint: GERD, upper abdominal pain Relevant Family History (Specify if Yes): No Relevant Social History: Tobacco Use Present Medications: see Short Stay Collaborative assessment Medical History: Significant History (Benign essential hypertension Sacroiliitis Pure hypercholesterolemia Obesity (BMI 30-39.9) Hyperglycemia Allergic rhinitis Left leg pain Frequent headaches Lesion of femoral nerve, left lower limb Environmental allergies Hx of iron deficiency anemia Back pain Restless leg syndrome Medial epicondylit) History of Previous Operations: Relevant previous surgery/procedure and date(s) (Hx of colonoscopy Hx of knee surgery S/p bilateral myringotomy with tube placement History of nasal surgery Hx of shoulder surgery) Allergies: Allergies Allergy/AdvReac Type Severity Reaction Status Date / Time cephalexin Allergy Severe Anaphylaxis Verified 11/12/23 13:29 Sulfa (Sulfonamide Allergy Intermediate hives Verified 11/12/23 13:29 Antibiotics) sulfamethoxazole Allergy Intermediate RASH Verified 11/12/23 13:29 [From BACTRIM] trimethoprim [From BACTRIM] Allergy Intermediate RASH Verified 11/12/23 13:29 Review of Systems Sugical H&P ROS: Negative: Constitution, Cardiovascular and Respiratory and Yes, Specify: Gastrointestinal (RUQ pain) Exam Surgical H&P Exam: Normal: Heart, Normal: Lungs, Normal: Extremities and Normal: Abdomen Plan Diagnosis/Plan: Unchanged I have reviewed the history and physical and performed a pertinent physical examination on my patient. No changes have occurred unless specified. Time Spent With Patient Time: Total time managing care of this patient today ____ minutes.
--- NOTE | 2023-11-12 14:17 | W.PM.OPN ---
Operative Note Operative Note Date of Service: 11/12/23 Narrative: FLEXIBLE TRANSORAL UPPER GASTROINTESTINAL ENDOSCOPY WITH BIOPSIES Pre-op diagnosis: GERD, RUQ pain (daily lasting from 30 min to an hour and a half) Post-op diagnosis: Gastritis, GERD Endoscopist:? Ashwin Juarez MD Anesthesia:?MAC Consent: Indications for the procedure and potential complications of bleeding, perforation, reaction to medications and missed diagnosis were discussed with the patient and informed consent was obtained. Instrument: Olympus GIF H 190 mid size upper endoscope Monitoring: Vital signs and clinical assessment, continuous EKG monitoring, Pulse oximetry, Carbon Dioxide monitoring and blood pressure monitoring were done throughout the procedure. Procedure: The patient was placed in the left lateral decubitis position and pre-procedure medications were administered and a bite block was placed. The endoscope was inserted into the mouth and advanced under direct vision to the third part of duodenum. A careful inspection was made as the upper endoscope was withdrawn including a retroflexed examination of the proximal stomach; Findings and interventions are described below. Findings: Larynx: Normal Esophagus: GE junction at 36 cms. No esophagitis or Stock[place]'s. Stomach: Patchy erythema in the antrum. Biopsies were obtained to check for Helicobacter pylori. Grade 2 flap valve on retroflexed examination of the cardia. Duodenum: Normal bulb and descending duodenum. Biopsies were obtained from 3rd part of the duodenum to check for celiac sprue Intervention: Biopsies as noted above Impression and Post Procedure Diagnosis: Endoscopy Findings: STOMACH: Mild antral gastritis - biopsies obtained to check for Helicobacter pylori DUODENUM: Normal - biopsies were obtained to check for celiac sprue Plan: Await pathology results Patient has an appointment on 11/25/23 in the GI Clinic with Dr Juarez Above findings were reviewed with the patient and Gastritis handout was given in the discharge area
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
[2023-11-12 15:51] VITALS: BP 119/73; PULSE 77; RESP 16; TEMP 36.2; O2SAT 95
--- NOTE | 2023-11-12 16:01 | HO.POSTANES ---
Post Anesthesia Evaluation Post Anesthesia Evaluation Date of Service: 11/12/23 Vital Signs: Vital Signs Temp Pulse Resp BP Pulse Ox O2 Del Method 11/12/23 13:21 97.0 F 97 16 121/74 95 Room Air Anesthesia: Monitored Mental Status: Awake Pain Control: Satisfactory Nausea/Vomiting: None Hydration: Adequate Anesthesia-Related Issues: No Anes. Related Issues
[2023-11-12 16:06] VITALS: BP 118/60; PULSE 74; RESP 16; TEMP 36.1; O2SAT 99
[2023-11-12 16:21] VITALS: BP 112/67; PULSE 71; RESP 18; TEMP 36.1; O2SAT 99
== END 2023-11-12 16:29 | disposition home or self-care (01) ==
PROVIDERS: PCP Internal Medicine; Visit Provider Internal Medicine Gastroenterology
PROC: 0DJ08ZZ Inspection of Upper Intestinal Tract, Via Natural or Artificial Opening Endoscopic (ICD-10-PCS; CPT 43235; principal; 2023-11-12 14:40)
DX: K29.60 Other gastritis without bleeding (principal); K21.9 Gastro-esophageal reflux disease without esophagitis; R13.14 Dysphagia, pharyngoesophageal phase; I10 Essential (primary) hypertension; E78.00 Pure hypercholesterolemia, unspecified; D50.9 Iron deficiency anemia, unspecified; F17.200 Nicotine dependence, unspecified, uncomplicated; E66.9 Obesity, unspecified; Z68.38 Body mass index [BMI] 38.0-38.9, adult; Z79.899 Other long term (current) drug therapy
CPT/HCPCS: 43239; 88305; 88313; 88342; J2704

== ENCOUNTER → 2023-11-12 12:53 | Outpatient (BNV) | payer OTHER, SELFPAY | PROVIDERS: PCP Internal Medicine; Visit Provider Internal Medicine Gastroenterology | DX: K21.9 Gastro-esophageal reflux disease without esophagitis (principal); K29.70 Gastritis, unspecified, without bleeding | CPT/HCPCS: 43239 ==

== ENCOUNTER 2023-12-08 12:18 | Outpatient (AMB) | payer OTHER, SELFPAY ==
[2023-12-08 12:31] VITALS: BP 104/68; PULSE 89; O2SAT 98; BMI 39.2
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
== END 2023-12-08 13:25 | disposition home or self-care (01) ==
PROVIDERS: PCP Internal Medicine; Visit Provider Internal Medicine
DX: R10.9 Unspecified abdominal pain (principal); M25.562 Pain in left knee; M47.812 Spondylosis without myelopathy or radiculopathy, cervical region; M51.36 Other intervertebral disc degeneration, lumbar region; G57.22 Lesion of femoral nerve, left lower limb; M25.572 Pain in left ankle and joints of left foot; I10 Essential (primary) hypertension; E78.00 Pure hypercholesterolemia, unspecified; J30.9 Allergic rhinitis, unspecified; F41.9 Anxiety disorder, unspecified; E66.9 Obesity, unspecified
CPT/HCPCS: 99214

== ENCOUNTER → 2023-12-10 10:42 | Outpatient (REF) | payer OTHER, SELFPAY ==
--- NOTE | ~2023-12-10 | NM_ITS ---
EXAMINATION: BILIARY TRACT IMAGING STUDY WITH CCK CLINICAL INFORMATION: Unspecified abdominal pain. Rule out biliary source of pain.. COMPARISON: No previous biliary scan is available for comparison. The diagnostic CT scan of the abdomen and pelvis, dated 08/09/2023, is available for comparison.. TECHNIQUE: Serial gamma scintillation camera images were obtained over the abdomen for a total observation period of 90 minutes following the intravenous administration of 5.0 mCi Tc-99m Mebrofenin. FINDINGS: There is good concentration of activity in the liver by 5 minutes post injection. Biliary activity is visualized by 20 minutes. The gallbladder is well visualized by 35 minutes. Small bowel is well visualized by 70 minutes. At 60 minutes post radiopharmaceutical injection, a 30-minute infusion of 2.0 micrograms Sincalide was then begun and an additional 30 minutes of images were obtained. There is very minimal gallbladder emptying during the sincalide infusion. At the end of the study the gallbladder shows marked retention of activity at 30 minutes following initiation of the sincalide infusion. There is almost complete clearance of activity from the liver at this time and diffuse small bowel activity is well visualized. The calculated gallbladder ejection fraction is 4% (normal gallbladder ejection fraction is greater than 35%). NM/NM hepatobiliary w pharm IMPRESSION: 1. Visualization of the gallbladder is evidence of a patent cystic duct and strong evidence against the diagnosis of acute cholecystitis. The common bile duct is patent. Liver function appears normal. 2. Poor gallbladder emptying and a low gallbladder ejection fraction are evidence of impaired gallbladder contractility and most likely due to chronic cholecystitis.
== END ==
LOC: HO.NUCMED 10:42
PROVIDERS: PCP Internal Medicine; Visit Provider Internal Medicine Gastroenterology
DX: R10.9 Unspecified abdominal pain (principal); K80.20 Calculus of gallbladder without cholecystitis without obstruction
CPT/HCPCS: 78227; A9537; J2805

== ENCOUNTER 2023-12-15 11:11 | Outpatient (REF) | payer OTHER, SELFPAY ==
--- NOTE | ~2023-12-15 | XR_ITS ---
X-RAY LEFT ANKLE AND LEFT FOOT CLINICAL HISTORY: Pain. COMPARISON: Radiograph left foot 11/25/2018. TECHNIQUE: 2 views of the left ankle and 3 views of the left foot. FINDINGS: Left ankle: No fracture or subluxation. No abnormal soft tissue calcifications. Nonspecific mild diffuse soft tissue swelling. Left foot: No fracture or subluxation. Trace degenerative arthrosis of the first MTP joint. Small plantar calcaneal spurs. Nonspecific mild diffuse soft tissue swelling. XR/XR foot LT min 3V IMPRESSION: 1. No acute fracture or malalignment. 2. Small plantar calcaneal spurs. 3. Trace degenerative arthrosis of the first MTP joint. 4. Nonspecific mild diffuse soft tissue swelling.
--- NOTE | ~2023-12-15 | XR_ITS ---
X-RAY LEFT ANKLE AND LEFT FOOT CLINICAL HISTORY: Pain. COMPARISON: Radiograph left foot 11/25/2018. TECHNIQUE: 2 views of the left ankle and 3 views of the left foot. FINDINGS: Left ankle: No fracture or subluxation. No abnormal soft tissue calcifications. Nonspecific mild diffuse soft tissue swelling. Left foot: No fracture or subluxation. Trace degenerative arthrosis of the first MTP joint. Small plantar calcaneal spurs. Nonspecific mild diffuse soft tissue swelling. XR/XR ankle LT min 3V IMPRESSION: 1. No acute fracture or malalignment. 2. Small plantar calcaneal spurs. 3. Trace degenerative arthrosis of the first MTP joint. 4. Nonspecific mild diffuse soft tissue swelling.
[2023-12-15 13:02] LABS: Appearance Urine Cloudy; Color Urine Yellow; Glucose Urine UA Negative (Negative); Leukocyte Esterase Urine Moderate (2+) (Negative); Nitrite Urine Negative (Negative); Specific Gravity - Urine 1.015 (1.005-1.025); UMIC TRIGGER UACC YES; Urine Blood Negative (Negative); Urine Ketones Negative (Negative); Urine Protein Negative (Neg-Trace)
[2023-12-15 13:08] LABS: Bacteria Urine 2+ (None Seen); Hyaline Casts Urine 0-2 /LPF (0-2); RBC Urine 0-2 /HPF (0-2); UACC Culture Trigger YES; WBC Urine >50 /HPF (0-5)
[2023-12-15 13:20] LABS: MANUAL DIFF FLAG NO
[2023-12-15 13:30] LABS: B Type Natriuretic Peptide 11 pg/mL (<100)
[2023-12-15 13:31] LABS: Basophils Percent Auto 0.9 % (0-2); Eosinophils Percent Auto 0.7 % (0-4); Hematocrit 35.6 % (37.0-47.0); Hemoglobin 11.8 g/dl (12.0-16.0); Imm Gran Abs Auto 0.01 X10*3/uL (0.00-0.03); Imm Gran Pct Auto 0.2 % (0.0-0.4); Lymphocytes Absolute Auto 1.5 X10*3/uL (1.2-4.9); Lymphocytes Percent Auto 33.8 % (20-40); Mean Corpuscular HGB Conc 33.1 g/dl (31.0-35.0); Mean Corpuscular Hemoglobin 28.2 pg (27.0-33.0); Mean Corpuscular Volume 85.2 fL (80.0-98.0); Mean Platelet Volume 11.2 fL (9.4-12.3); Monocytes Absolute Auto 0.4 X10*3/uL (0.1-1.2); Monocytes Percent Auto 9.1 % (2-11); Neutrophils Absolute Auto 2.4 x10*3/uL (2.0-8.3); Neutrophils Percent Auto 55.3 % (45-73); Platelet Count 309 X10*3/uL (160-400); Red Blood Count 4.18 X10*6/uL (4.20-5.50); Red Cell Distribution Width 13.1 % (11.0-16.0); White Blood Count 4.3 X10*3/uL (4.8-10.8)
[2023-12-15 14:19] LABS: Alanine Aminotransferase 31 U/L (0-31); Alkaline Phosphatase 140 U/L (39-117); Anion Gap 10 (12-20); Aspartate Amino Transferase 29 U/L (5-31); Bilirubin Total 0.5 mg/dL (0.0-1.0); Blood Urea Nitrogen 12 mg/dL (9-16); Calcium 9.4 mg/dL (8.4-10.2); Carbon Dioxide 28 mmol/L (22-29); Chloride 105 mmol/L (96-108); Cholesterol 254 mg/dL (<200); Estimated Glomerular Filt Rate > 60; Glucose Fasting 116 mg/dL (60-99); HDL Cholesterol 56 mg/dL (>40); LDL Cholesterol Calculated 173 mg/dL (<100); Potassium 3.9 mmol/L (3.3-5.1); Sodium 139 mmol/L (135-145); TSH reflex Free T4 1.22 uIU/mL (0.32-4.0); Total Protein 7.6 g/dL (6.5-8.0); Triglycerides 129 mg/dL (<150); Vitamin D 25-OH Total 23.1 ng/mL (>30)
[2023-12-17 08:20] LABS: Benzoylecgonine NEGATIVE
== END 2023-12-15 11:12 | disposition home or self-care (01) ==
LOC: HO.HMGCX 11:11
PROVIDERS: PCP Internal Medicine; Visit Provider Internal Medicine
DX: M25.572 Pain in left ankle and joints of left foot (principal); E78.00 Pure hypercholesterolemia, unspecified; E55.9 Vitamin D deficiency, unspecified; I50.9 Heart failure, unspecified; G89.29 Other chronic pain; D64.9 Anemia, unspecified; Z91.81 History of falling
CPT/HCPCS: 36415; 73610; 73630; 80053; 80061; 80353; 81001; 81003; 82306; 83880; 84443; 85025; 87086

== ENCOUNTER 2023-12-16 11:44 | Outpatient (AMB) | payer OTHER, SELFPAY ==
--- NOTE | 2023-12-16 11:55 | MHC.OFFVIS ---
Intake Vital Signs 12/16/23 11:57 Height 5 ft 3.5 in Weight 225 lb BMI 39.2 BP 126/65 Blood Pressure Location Lt brachial Position Sitting Pulse 88 Intake Visit Reasons: EGD results Intake Note: patient follow up for EGD result. Patient cc: abdominal upset, RLQ pain and bloating, heartburn with burning sensation on her throat, constipation and some swallowing problems. Also patient needed 90 days supplies for her Omeprazole due the insurance. 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 Required: No Accompanied by: Self / Same As Patient Allergies cephalexin Allergy (Severe, Verified 12/16/23 11:55) Anaphylaxis Sulfa (Sulfonamide Antibiotics) Allergy (Intermediate, Verified 12/16/23 11:55) hives sulfamethoxazole [From BACTRIM] Allergy (Intermediate, Verified 12/16/23 11:55) RASH trimethoprim [From BACTRIM] Allergy (Intermediate, Verified 12/16/23 11:55) RASH Medication List - Last Reconciled 12/16/23 by Ashwin Juarez MD acetaminophen 650 mg (2 x 325 mg) PO QID PRN 30 days amlodipine (Norvasc) 10 mg PO DAILY 30 days cetirizine 10 mg PO DAILY PRN cyclobenzaprine 5 mg PO TID PRN escitalopram oxalate 20 mg PO DAILY 90 days hydroxyzine HCl 25 mg PO TID PRN lorazepam Take 1 tablet 30 minutes before procedure as needed for anxiety. May repeat x 1 dose after 10 to 15 minutes if needed. 1 day losartan 50 mg PO DAILY 90 days omeprazole 20 mg PO DAILY 90 days ondansetron 4 mg PO Q8H PRN 15 days oxycodone 15 mg PO Q8H PRN 14 days sennosides-docusate sodium 8.6-50 mg (Senna Plus) 1 tab-cap PO BEDTIME 60 days HPI EGD results HPI Details GI clinic visit for this 53 YF for FU after an episode of right sided abdominal pain. Patient was hospitalized at [facility] [place] with right-sided abdominal pain diagnosed with ischemic colitis. She had recurrent pain in May and June and was treated with p.o. Augmentin for 10 days with resolution. IMAGING STUDIES: 12/10/23 HIDA SCAN SHOWED: There is very minimal gallbladder emptying during the sincalide infusion. At the end of the study the gallbladder shows marked retention of activity at 30 minutes following initiation of the sincalide infusion. There is almost complete clearance of activity from the liver at this time and diffuse small bowel activity Is well visualized. The calculated gallbladder ejection fraction is 4% (normal gallbladder ejection fraction is greater than 35%). IMPRESSION: 1. Visualization of the gallbladder is evidence of a patent cystic duct and strong evidence against the diagnosis of acute cholecystitis. The common bile duct is patent. Liver function appears normal. 2. Poor gallbladder emptying and a low gallbladder ejection fraction are evidence of impaired gallbladder contractility and most likely due to chronic cholecystitis. 07/[address] SCAN SHOWED: 1. Resolution of ascending colitis. 2. Hepatic steatosis. 3. Cholelithiasis. 4. Stable small renal cysts. ENDOSCOPIC STUDIES: 11/12/23 EGD SHOWED: Esophagus: GE junction at 36 cms. No esophagitis or [place]'s. Stomach: Patchy erythema in the antrum. Biopsies were obtained to check for Helicobacter pylori. Grade 2 flap valve on retroflexed examination of the cardia. Duodenum: Normal bulb and descending duodenum. Biopsies were obtained from 3rd part of the duodenum to check for celiac sprue Impression and Post Procedure Diagnosis: Endoscopy Findings: STOMACH: Mild antral gastritis - biopsies obtained to check for Helicobacter pylori DUODENUM: Normal - biopsies were obtained to check for celiac sprue BIOPSIES SHOWED: A. Small bowel, biopsy: Small-bowel/duodenal mucosa with preserved villi and no specific change. B. Gastric antrum, biopsy: Gastric antral mucosa with mild reactive changes, congestion, and focal minimal chronic inactive inflammation; negative for H pylori, intestinal metaplasia and dysplasia 04/12/23 COLONOSCOPY SHOWED: One medium sized polyp removed Focal area of edematous folds with ulcerations covered with exudate in the mid AC - likely resolving ischemic colitis and less likely IBD. Linear erosions with a few aphthoid ulcers in the distal rectum - biopsies were obtained to check for proctitis. Mild diverticulosis seen in the sigmoid colon Moderate hemorrhoids on retroflexed exam. Plan: Repeat Colonoscopy interval based on path results - in 3-5 years if polyps are adenomatous and 10 years if polyps are hyperplastic. Above findings were reviewed with the patient and colon polyps and ischemic colitis handouts were given in the discharge area Pt continues to experience postprandial abdominal cramps and bloating - though her symptoms are gradually improving. BIOPSIES SHOWED: A. Colon, right, biopsy: Colonic mucosa with marked regenerative crypt changes, increased eosinophils, minimal active inflammation and marked reactive epithelial changes without a basal lymphoplasmacytic infiltrate or granulomas (see comment). B. Colon, sigmoid, polyp: Tubular adenoma; negative for high-grade dysplasia and carcinoma. C. Colon, rectum, biopsy: Colonic mucosa with minor crypt distortion, lymphoid aggregate, and congestion; negative for colitis/proctitis, granulomas and dysplasia. Comment: (A): Appearances suggest a healing/resolving mucosal injury rather than a chronic colitis; clinicalcorrelation and follow-up warranted TODAY'S VISIT: Patient cc: abdominal upset, RLQ pain and bloating, heartburn with burning sensation on her throat, constipation and some swallowing problems. Also patient needed 90 days supplies for her Omeprazole due the insurance. Complains of abdominal pain daily. Takes Ondansetron which helps relieve the pain partially. Has a BM once every 3 weeks with passage of hard stools. Has been feeling better for the past few weeks and notes some improvement in her appetite. For the past 2 weeks she has been eating regular diet (bland) without post prandial pain Can have abdominal pain if she eats spicy food Pain was similar to pain during hospitalization and gets worse after eating. Denies radiation to the back or shoulder. Notes diarrhea when she has episodes of abdominal pain with 3-4 loose stools. Intermittent dysphagia to solids and liquids - drinks water to help it go down. Denies episodes of regurgitation. PAST VISITS: Colonoscopy results reviewed. Did not feel hungry for a few days after the colonoscopy. Feels normal now Patient denies symptoms of heartburn, dysphagia, nausea, vomiting, change in appetite or weight. Denies recent change in bowel habits, constipation, diarrhea, black stools or rectal bleeding. Patient denies major cardiac or pulmonary problems, loud snoring or sleep apnea Denies problems with anesthesia in the past. Denies being on chronic anticoagulation. Patient denies known family history of colon polyps, colon cancer or other GI malignancies. 52 YF with osteoarthritis complicated by chronic pain, mood disorder, obesity, hld, seen at [facility] on 03/22/23 with back and right sided abd pain.?Pt gives a hx of intermittent back pain for which she takes oxycodone Pt reports she started having back pain yesterday (03/21/23) around noon which later migrated to right abdomen. She used a heating pad and took Flexeril without relief. Pt reports the pain as constant (with intermittent waves of increased pain), stabbing in character and > than 10/10 in intensity Pt admits to associated nausea and vomiting and has been unable to eat or drink anything without gagging except ice chips and sips of fluids. Drinking fluids can make the pain worse. Patient denies fever or chills.? Pt had 2 soft to loose BMs yesterday (greenish in color) and denies having a BM today. She admits to passing gas without improvement in pain Pt denies having similar pain in the past. Pt denies any cardiac or pulmonary problems, loud snoring or sleep apnea. Patient denies smoking and admits to drinking off and on when she is in distress. 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 Pt has a daughter, an adopted daughter and 2 step children. Patient's mom has kidney stones, gallbladder disease, coronary artery disease and history of colon polyps.? Patient denies known family history of IBD or GI malignancy. ? Labs in the ED showed? leukocytosis with left shift, Normal lipase PFSH Medical History (Updated 12/16/23 @ 12:45 by Ashwin Juarez MD) Benign essential hypertension Sacroiliitis Pure hypercholesterolemia Obesity (BMI 30-39.9) Hyperglycemia Allergic rhinitis Left leg pain Frequent headaches Lesion of femoral nerve, left lower limb Environmental allergies Hx of iron deficiency anemia Back pain Restless leg syndrome Medial epicondylitis of right elbow Right elbow pain Lumbar degenerative disc disease Surgical History History of esophagogastroduodenoscopy (EGD) Hx of colonoscopy Hx of knee surgery S/p bilateral myringotomy with tube placement History of nasal surgery Hx of shoulder surgery Family History Mother Hypertension Father No problems noted. 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) Hearing needs: No Vision needs: Yes (Glasses) Review of Systems Const All systems reviewed & are unremarkable except as noted in HPI and below Physical Exam Vital Signs: Last Vital Signs Pulse 88 12/16/23 11:57 BP 126/65 12/16/23 11:57 BMI result Body Mass Index 39.2 Const General: healthy appearing and no acute distress Nutritional Appearance: obese Orientation/consciousness: patient oriented x3 Limitations: no limitations HEENT Head: Yes normal to inspection Ears: hearing grossly normal bilaterally Eyes Sclerae: sclerae normal Pupils: Equal, round and reactive pupils present Neck Neck: Yes normal visual inspection Chest Chest palpation & inspection: normal inspection of the chest Resp Effort & Inspection: normal respiratory effort Auscultation: clear to auscultation bilaterally Cardio Palpation: normal PMI Rate: regular rate Rhythm: regular rhythm Heart sounds: S1 normal heart sound present, S2 normal heart sound present and no murmurs GI Palpation (GI): Soft to palpation, Tenderness to palpation present (GI) (Mild RUQ tenderness) and No hepatosplenomegaly present Auscultation: normal bowel sounds Rectal Exam - Female: deferred Skin General skin exam: no rashes or lesions noted Neuro General: patient oriented x3, gait normal and moves all extremities Cranial nerves: Yes Equal, round and reactive pupils present Psych Appearance: grossly normal Mental Status: mental status grossly normal Assessment & Plan Assessment & Plan (1) Gallstones: Code(s): K80.20 - Calculus of gallbladder without cholecystitis without obstruction (2) Dysphagia, pharyngoesophageal phase: Code(s): R13.14 - Dysphagia, pharyngoesophageal phase (3) GERD (gastroesophageal reflux disease): Code(s): K21.9 - Gastro-esophageal reflux disease without esophagitis (4) Chronic constipation: Code(s): K59.09 - Other constipation (5) History of ischemic colitis: Code(s): Z87.19 - Personal history of other diseases of the digestive system (6) Right sided abdominal pain: Code(s): R10.9 - Unspecified abdominal pain (7) Colon cancer screening: Comment: 04/2023 Colonoscopy showed resolving focal colitis in the ascending colon and one medium sized polyp was removed. Repeat colonoscopy is advised in 3 years - due 04/2026 Code(s): Z12.11 - Encounter for screening for malignant neoplasm of colon (8) Chronic RUQ pain: Code(s): R10.11 - Right upper quadrant pain; G89.29 - Other chronic pain Plan 53 YF with osteoarthritis complicated by chronic pain, mood disorder, obesity, hld, admitted to [facility] on 03/22/23 with back and right sided abd pain.? Pt reports the pain as constant (with intermittent waves of increased pain), stabbing in character and > than 10/10 in intensity Pt admits to associated nausea and vomiting and has been unable to eat or drink anything without gagging except ice chips and sips of fluids. Drinking fluids can make the pain worse. Patient denies fever or chills.? Pt had 2 soft to loose BMs yesterday (greenish in color) and denies having a BM today. She admits to passing gas without improvement in pain Abd CT scan showed?Marked mural thickening and pericolonic inflammatory changes are noted involving the right-sided colon starting from the level of the cecum to the hepatic flexure without evidence of any bowel obstruction, perforation or abscess formation. There are few shotty adjacent mesenteric lymph nodes noted. 12/16/23 HIDA scan showed GB EF of 4%. Pt has chronic RUQ pain with local tenderness Patient was referred to general surgery for evaluation for a lap reinaldo. Follow-up in 3 months. Orders: Referrals General Surgery Referral G89.29 - Other chronic pain, R10.11 - Right upper quadrant pain Medications: New linaclotide (Linzess) 145 mcg PO QAM 30 caps 3RF 30 days K59.09 - Other constipation Coding Level of Care Code Est Pt Level 4 (42450) Diagnoses Gallstones K80.20 Dysphagia, pharyngoesophageal phase R13.14 GERD (gastroesophageal reflux disease) K21.9 Chronic constipation K59.09 History of ischemic colitis Z87.19 Right sided abdominal pain R10.9 Colon cancer screening Z12.11 Chronic RUQ pain R10.11; G89.29 Time Spent (min) 22
[2023-12-16 11:57] VITALS: BP 126/65; PULSE 88; BMI 39.2
== END 2023-12-16 12:47 | disposition home or self-care (01) ==
PROVIDERS: PCP Internal Medicine; Visit Provider Internal Medicine Gastroenterology
DX: K80.20 Calculus of gallbladder without cholecystitis without obstruction (principal); R13.14 Dysphagia, pharyngoesophageal phase; K21.9 Gastro-esophageal reflux disease without esophagitis; K59.09 Other constipation; Z87.19 Personal history of other diseases of the digestive system; R10.9 Unspecified abdominal pain; Z12.11 Encounter for screening for malignant neoplasm of colon; R10.11 Right upper quadrant pain; G89.29 Other chronic pain
CPT/HCPCS: 99214

== ENCOUNTER → 2023-12-16 11:44 | Outpatient (BNVA) | payer OTHER, SELFPAY | PROVIDERS: PCP Internal Medicine; Visit Provider Internal Medicine Gastroenterology | DX: Z12.11 Encounter for screening for malignant neoplasm of colon (principal); R10.11 Right upper quadrant pain; R13.14 Dysphagia, pharyngoesophageal phase; K59.09 Other constipation; K80.20 Calculus of gallbladder without cholecystitis without obstruction; K21.9 Gastro-esophageal reflux disease without esophagitis; G89.29 Other chronic pain | CPT/HCPCS: 99212 ==

== ENCOUNTER 2023-12-21 10:22 | Outpatient (AMB) | payer OTHER, SELFPAY ==
--- NOTE | 2023-12-21 10:24 | MHC.OFFVIS ---
Intake Vital Signs 12/21/23 10:31 Height 5 ft 3.5 in Weight 226 lb BMI 39.4 BP 135/64 Blood Pressure Location Rt brachial Position Sitting Pulse 88 Intake Visit Reasons: RUQ pain~ Gallbladder Intake Note: Patient referred by Dr. Juarez for low EF on HIDA scan. Patient c/o: RUQ pain. HIDA scan: 12-10-23. Protocol Manager Required: No Accompanied by: Self / Same As Patient Allergies cephalexin Allergy (Severe, Verified 12/21/23 10:25) Anaphylaxis Sulfa (Sulfonamide Antibiotics) Allergy (Intermediate, Verified 12/21/23 10:25) hives sulfamethoxazole [From BACTRIM] Allergy (Intermediate, Verified 12/21/23 10:25) RASH trimethoprim [From BACTRIM] Allergy (Intermediate, Verified 12/21/23 10:25) RASH HPI HPI Comments History of Present Illness Details Patient has had a many many months history of epigastric/right upper quadrant pain radiating around to her right back. She has had next dense of an exhaustive workup including CT scan, and HIDA scan demonstrating cholelithiasis and biliary dyskinesia. Patient has history of constipation and diverticulitis. She has never been jaundiced before. It is unclear if there are dietary precipitating factors. No prior abdominal surgeries Chart was reviewed patient evaluated [facility] Medical History Benign essential hypertension Sacroiliitis Pure hypercholesterolemia Obesity (BMI 30-39.9) Hyperglycemia Allergic rhinitis Left leg pain Frequent headaches Lesion of femoral nerve, left lower limb Environmental allergies Hx of iron deficiency anemia Back pain Restless leg syndrome Medial epicondylitis of right elbow Right elbow pain Lumbar degenerative disc disease Surgical History History of esophagogastroduodenoscopy (EGD) Hx of colonoscopy Hx of knee surgery S/p bilateral myringotomy with tube placement History of nasal surgery Hx of shoulder surgery Family History Mother Hypertension Father No problems noted. 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 Soft, benign. Assessment & Plan Assessment & Plan (1) Dysphagia, pharyngoesophageal phase: Code(s): R13.14 - Dysphagia, pharyngoesophageal phase (2) Biliary dyskinesia: Code(s): K82.8 - Other specified diseases of gallbladder Plan Risks, benefits, and alternatives laparoscopic possible open cholecystectomy reviewed the patient and included but not limited to bleeding, infection, recurrence of symptoms, numbness, pain, scarring, bowel or bile duct injury or leak and the patient wishes to proceed. All questions answered. Arrangements were made for this. Coding Level of Care Code New Pt Level 5 (06741) Diagnoses Dysphagia, pharyngoesophageal phase R13.14 Biliary dyskinesia K82.8
[2023-12-21 10:31] VITALS: BP 135/64; PULSE 88; BMI 39.4
== END 2023-12-21 10:48 | disposition home or self-care (01) ==
PROVIDERS: PCP Internal Medicine; Referring Provider Internal Medicine Gastroenterology; Visit Provider Surgery
DX: K82.8 Other specified diseases of gallbladder (principal); R13.14 Dysphagia, pharyngoesophageal phase
CPT/HCPCS: 99204

== ENCOUNTER → 2023-12-21 10:22 | Outpatient (BNVA) | payer OTHER, SELFPAY | PROVIDERS: PCP Internal Medicine; Referring Provider Internal Medicine Gastroenterology; Visit Provider Surgery | DX: K82.8 Other specified diseases of gallbladder (principal); R13.14 Dysphagia, pharyngoesophageal phase | CPT/HCPCS: 99202 ==

== ENCOUNTER 2023-12-29 08:58 | Outpatient (AMB) | payer OTHER, SELFPAY ==
[2023-12-29 09:04] VITALS: BP 123/76; PULSE 90; RESP 18; O2SAT 95; BMI 39.8
--- NOTE | 2023-12-29 09:04 | MHC.OFFVIS ---
Intake Vital Signs 12/29/23 09:04 Height 5 ft 3.5 in Weight 228 lb BMI 39.8 BP 123/76 Blood Pressure Location Lt brachial Position Sitting Respiration 18 Pulse 90 Pulse Source Pulse Oximeter Pulse Oximetry (%) 95 Oxygen Delivery Method Room Air Intake Visit Reasons: Knee Pain Allergies cephalexin Allergy (Severe, Verified 12/29/23 09:03) Anaphylaxis Sulfa (Sulfonamide Antibiotics) Allergy (Intermediate, Verified 12/29/23 09:03) hives sulfamethoxazole [From BACTRIM] Allergy (Intermediate, Verified 12/29/23 09:03) RASH trimethoprim [From BACTRIM] Allergy (Intermediate, Verified 12/29/23 09:03) RASH HPI HPI Comments History of Present Illness Details Eloise is very pleasant 53 years old female who presents in my office with complains on pain in the left knee. This patient is very well known to this office, about 3-1/2 years ago she was seen here with idiopathic left femoral neuropathy with pain radiating from the groin into the medial surface of the thigh medial surface of the knee and medial surface of the lower leg all the way to the medial surface of the left ankle. She was examined and she received a trial and following up stim wave/curonix PNS with excellent results. One year ago she felt on her chest and her left knee the chest trauma was surgically repaired however the left knee was examined by Orthopedic surgery, no reasons to operate on the knee was found, I presume that the patient did not have any meniscal tears. She still enjoys the stimulation from PNS for her neuropathy however she states that this device does not help her pain in the knee. We discussed alternatively genicular nerve block following radiofrequency ablation versus PRP injection, which would not be covered by insurance. She requested me to send her for knee x-ray, I will gladly send her for knee x-ray to evaluate her knee changes on the left. She wants to discuss PRP and cost of the procedure with her . She wants to schedule appointment with me in 1 week. [facility] Medical History Benign essential hypertension Sacroiliitis Pure hypercholesterolemia Obesity (BMI 30-39.9) Hyperglycemia Allergic rhinitis Left leg pain Frequent headaches Lesion of femoral nerve, left lower limb Environmental allergies Hx of iron deficiency anemia Back pain Restless leg syndrome Medial epicondylitis of right elbow Right elbow pain Lumbar degenerative disc disease Surgical History History of esophagogastroduodenoscopy (EGD) Hx of colonoscopy Hx of knee surgery S/p bilateral myringotomy with tube placement History of nasal surgery Hx of shoulder surgery Family History Mother Hypertension Father No problems noted. 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) Hearing needs: No Vision needs: Yes (Glasses) Review of Systems Const All systems reviewed & are unremarkable except as noted in HPI and below Physical Exam Vital Signs: Last Vital Signs Pulse 90 12/29/23 09:04 Resp 18 12/29/23 09:04 BP 123/76 12/29/23 09:04 Pulse Ox 95 12/29/23 09:04 Oxygen Delivery Method Room Air 12/29/23 09:04 BMI result Body Mass Index 39.8 Const General: cooperative and no acute distress Orientation/consciousness: patient oriented x3 Resp Effort & Inspection: normal respiratory effort and able to speak in complete sentences Cardio Peripheral pulses: Peripheral pulses 2+ throughout Neuro General: patient oriented x3 Extrem Other: There is a scar on anterior surface of the left knee. The scar is very well-healed. Limited range of motion of the left knee. No cogwheel motion. Crepitus on palpation with motion is sensed. Assessment & Plan Assessment & Plan (1) Traumatic arthritis of left knee: Code(s): M12.562 - Traumatic arthropathy, left knee (2) Lesion of femoral nerve, left lower limb: Comment: Has femoral nerve neuropathy Code(s): G57.22 - Lesion of femoral nerve, left lower limb Plan She still likes the effect of the peripheral nerve stimulation. She is doing okay and not complaining on her sacroiliac joint pain today. Posttraumatic knee osteoarthritis would need to be evaluated. I will send her for knee x-ray. Unfortunately her PNS does not help her with pain in the anterior surface of the knee. Offered her PRP injection I explained to her the risks and benefits of the procedure, she is seem to be interested. I will see her in 1 week. Orders: Orders XR knee LT 3V Today M12.562 - Traumatic arthropathy, left knee Coding Level of Care Code Est Pt Level 3 (83500) Diagnoses Traumatic arthritis of left knee M12.562 Lesion of femoral nerve, left lower limb G57.22
== END 2023-12-29 09:18 | disposition home or self-care (01) ==
LOC: HO.PMC 08:59
PROVIDERS: PCP Internal Medicine; Visit Provider Anesthesiology
DX: M12.562 Traumatic arthropathy, left knee (principal); G57.22 Lesion of femoral nerve, left lower limb
CPT/HCPCS: 99213

== ENCOUNTER → 2023-12-29 08:58 | Outpatient (BNVA) | payer OTHER, SELFPAY | PROVIDERS: PCP Internal Medicine; Visit Provider Anesthesiology | DX: M12.562 Traumatic arthropathy, left knee (principal); G57.22 Lesion of femoral nerve, left lower limb | CPT/HCPCS: 99212 ==

== ENCOUNTER 2024-01-27 05:53 | Day surgery (SDC) | payer OTHER, SELFPAY ==
[2024-01-25 08:53] VITALS: BMI 39.4
--- NOTE | 2024-01-26 14:46 | MHC.SHP ---
Pre-Procedural Eval Section A - 24 Hr Update-Section A only Date of Service: 01/26/24 The patient is an INPATIENT: No Changes since office visit: No Cold of Flu in the past 2 weeks, No New Medical Problems, No Changes in Medication and No Patient answered all questions Section B - Complete if H&P > 30 days Chief Complaint: Dysphagia, pharyngoesophageal phase Allergies: Allergies Allergy/AdvReac Type Severity Reaction Status Date / Time cephalexin Allergy Severe Anaphylaxis Verified 12/29/23 09:03 Sulfa (Sulfonamide Allergy Intermediate hives Verified 12/29/23 09:03 Antibiotics) sulfamethoxazole Allergy Intermediate RASH Verified 12/29/23 09:03 [From BACTRIM] trimethoprim [From BACTRIM] Allergy Intermediate RASH Verified 12/29/23 09:03 Plan I have reviewed the history and physical and performed a pertinent physical examination on my patient. No changes have occurred unless specified. Time Spent With Patient Time: Total time managing care of this patient today ____ minutes.
[2024-01-27] VITALS (13 sets, daily range): BP systolic 108–138; BP diastolic 56–86; PULSE 76–110; RESP 16–24; TEMP 36.1–36.6; O2SAT 94–99; BMI 40.1
[2024-01-27] MEDS: Lactated Ringers 1,000 ML 80 ML IVCONT (06:40)
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
[2024-01-27] MEDS: HYDROmorphone HCl 0.5 MG/0.5 ML SYRINGE IVPUSH ×2 (08:47→08:52)
[2024-01-27] MEDS: fentaNYL citrate/PF 100 MCG/2 ML VIAL 25 MCG IVPUSH ×2 (09:01→09:09)
[2024-01-27] MEDS: oxyCODONE HCl Immed Release 5 MG TABLET PO (09:04)
[2024-01-27] MEDS: Acetaminophen 325 MG TABLET 650 MG PO (09:04)
--- NOTE | 2024-01-27 09:09 | W.PM.OPN ---
Operative Note Operative Note Date of Service: 01/27/24 Narrative: Preoperative diagnosis: [] Symptomatic gallbladder Postop diagnosis: [] The same Procedure [] laparoscopic cholecystectomy Surgeon: [] Brendan Foreman/[employer]: [] Sarah Type of Anesthesia: [] General Indication for surgery: [] Corpulent abdomen. Omental adhesions to the gallbladder. Intrahepatic gallbladder. Findings: [] Patient brought to the operating room, placed on operative table in supine position, after an adequate level of general anesthesia was induced, the patient's abdomen which was corpulent was prepped and draped in usual sterile fashion. Using a supraumbilical curvilinear incision, Bryan technique was used to insufflate abdominal cavity to 15 mm of CO2. Upper midline and right subcostal ports were placed under direct laparoscopic view, and the patient placed in reverse Trendelenburg, and tilted to the left. Findings were as noted above. Gallbladder was grasped using laparoscopic graspers and retracted superiorly and laterally. Omental adhesions swept off the gallbladder with the hilum was approached. Cystic artery and cystic duct were each identified, circumferentially skeletonized, traced directly into the gallbladder and critical view obtained. Each was clipped proximally x2, distally x1 and transected. Cystic artery had an accessory branch which was similarly clipped in the gallbladder fossa and transected. Gallbladder which was intrahepatic was then cauterized from the gallbladder fossa using Bovie. Specimen placed in an Endo-Catch bag and retrieved through the umbilical port. Abdominal cavity was copiously irrigated, secured hemostasis. All ports removed under direct laparoscopic view. Wounds were closed in the following manner; umbilical wound is fascia reapproximated using interrupted 0 Vicryl sutures. Skin wounds were closed using subcuticular 4-0 Vicryl sutures followed by Steri-Strips and sterile dressings. Wounds were infiltrated 0.5% Marcaine at completion. Sponge, needle, and instrument counts were reported correct. Patient tolerated the procedure well and emerged from anesthesia stable condition. EBL minimal
== END 2024-01-27 10:55 | disposition home or self-care (01) ==
PROVIDERS: PCP Internal Medicine; Visit Provider Surgery
PROC: 0FT44ZZ Resection of Gallbladder, Percutaneous Endoscopic Approach (ICD-10-PCS; CPT 47562; principal; 2024-01-27 07:30)
DX: K80.10 Calculus of gallbladder with chronic cholecystitis without obstruction (principal); K82.8 Other specified diseases of gallbladder; I10 Essential (primary) hypertension; Z88.2 Allergy status to sulfonamides
CPT/HCPCS: 47562; 88304; J0736; J1170; J2250; J2405; J2704; J2795; J3010

== ENCOUNTER → 2024-01-27 05:53 | Outpatient (BNV) | payer OTHER, SELFPAY | PROVIDERS: PCP Internal Medicine; Visit Provider Surgery | DX: K82.8 Other specified diseases of gallbladder (principal) | CPT/HCPCS: 47562 ==

== ENCOUNTER 2024-02-14 09:09 | Outpatient (AMB) | payer OTHER, SELFPAY ==
--- NOTE | 2024-02-14 09:15 | A.OFFVIS_ITS ---
Intake Visit Reasons: s/p cholecysytectomy Intake Note: Patient here s/p lap reinaldo. Reports incisions healing well. Patient c/o: no longer taking rx pain meds. Denies pain, tenderness, itch. Oil Agent Required: No Accompanied by: Self / Same As Patient Allergies cephalexin Allergy (Severe, Verified 02/14/24 09:18) Anaphylaxis Sulfa (Sulfonamide Antibiotics) Allergy (Intermediate, Verified 02/14/24 09:18) hives sulfamethoxazole [From BACTRIM] Allergy (Intermediate, Verified 02/14/24 09:18) RASH trimethoprim [From BACTRIM] Allergy (Intermediate, Verified 02/14/24 09:18) RASH HPI Comments Details: Patient presents for follow-up. She is doing quite well. She is tolerating her diet. He is having regular bowel habits. She has no GI issues or complaints. Minimal incisional discomfort. [facility], [facility] Medical History GERD (gastroesophageal reflux disease) Benign essential hypertension Sacroiliitis Pure hypercholesterolemia Obesity (BMI 30-39.9) Hyperglycemia Allergic rhinitis Left leg pain Frequent headaches Lesion of femoral nerve, left lower limb Environmental allergies Hx of iron deficiency anemia Back pain Restless leg syndrome Medial epicondylitis of right elbow Right elbow pain Lumbar degenerative disc disease Surgical History Hx laparoscopic cholecystectomy (01/27/24) S/P placement of nerve stimulator History of esophagogastroduodenoscopy (EGD) Hx of colonoscopy Hx of knee surgery S/p bilateral myringotomy with tube placement History of nasal surgery Hx of shoulder surgery Family History Mother Hypertension Father No problems noted. 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 All wounds clean dry and intact healing well Assessment & Plan Assessment & Plan (1) Status post laparoscopic cholecystectomy: Code(s): Z90.49 - Acquired absence of other specified parts of digestive tract Category: Medical Plan Patient has been given local instructions, and will follow-up p.r.n.. All questions answered. Coding Level of Care Code Global (89598) Diagnoses Status post laparoscopic cholecystectomy Z90.49
== END 2024-02-14 09:20 | disposition home or self-care (01) ==
PROVIDERS: PCP Internal Medicine; Visit Provider Surgery
DX: Z90.49 Acquired absence of other specified parts of digestive tract (principal)
CPT/HCPCS: 99024

== ENCOUNTER → 2024-02-14 09:09 | Outpatient (BNVA) | payer OTHER, SELFPAY | PROVIDERS: PCP Internal Medicine; Visit Provider Surgery | DX: Z90.49 Acquired absence of other specified parts of digestive tract (principal) | CPT/HCPCS: 99212 ==

== ENCOUNTER 2024-05-04 09:52 | Outpatient (AMB) | payer OTHER, SELFPAY ==
--- NOTE | 2024-05-04 09:55 | MHC.OFFVIS ---
Vital Signs 05/04/24 09:59 Height 5 ft 4 in Weight 230 lb BMI 39.5 BP 116/56 L Blood Pressure Location Lt brachial Position Sitting Pulse 92 Intake Visit Reasons: 1 Year Follow up Intake Note: Patient yearly follow up for Chronic RUQ pain. Patient cc: Nauseas on and off, abdominal pain with bloating, acid reflex wth burning sensation on and off, Constipation and some difficulty swallowing. Bath Tester Required: No Accompanied by: Self / Same As Patient Allergies cephalexin Allergy (Severe, Verified 05/04/24 09:55) Anaphylaxis Sulfa (Sulfonamide Antibiotics) Allergy (Intermediate, Verified 05/04/24 09:55) hives sulfamethoxazole [From BACTRIM] Allergy (Intermediate, Verified 05/04/24 09:55) RASH trimethoprim [From BACTRIM] Allergy (Intermediate, Verified 05/04/24 09:55) RASH Medication List - Last Reconciled 05/04/24 by Ashwin Juarez MD acetaminophen 650 mg (2 x 325 mg) PO QID PRN 30 days amlodipine (Norvasc) 10 mg PO DAILY 30 days cetirizine 10 mg PO DAILY PRN cyclobenzaprine 5 mg PO TID PRN escitalopram oxalate 20 mg PO DAILY 90 days hydroxyzine HCl 25 mg PO TID PRN linaclotide (Linzess) 145 mcg PO QAM 30 days losartan 50 mg PO DAILY 90 days omeprazole 20 mg PO DAILY 90 days ondansetron 4 mg PO Q8H PRN 15 days oxycodone 15 mg PO Q8H PRN 14 days sennosides-docusate sodium 8.6-50 mg (Stool Softener-Stimulant Laxative) 1 cap PO BEDTIME HPI HPI 1 Year Follow up: Details: GI clinic visit for this 53 YF for FU after an episode of right sided abdominal pain. Patient was hospitalized at [facility] [place] in March 2023 with right-sided abdominal pain diagnosed with ischemic colitis. She had recurrent pain in May and June and was treated with p.o. Augmentin for 10 days with resolution. IMAGING STUDIES: 12/10/23 HIDA SCAN SHOWED: There is very minimal gallbladder emptying during the sincalide infusion. At the end of the study the gallbladder shows marked retention of activity at 30 minutes following initiation of the sincalide infusion. There is almost complete clearance of activity from the liver at this time and diffuse small bowel activity Is well visualized. The calculated gallbladder ejection fraction is 4% (normal gallbladder ejection fraction is greater than 35%). IMPRESSION: 1. Visualization of the gallbladder is evidence of a patent cystic ductand strong evidence against the diagnosis of acute cholecystitis. The common bile duct is patent. Liver function appears normal. 2. Poor gallbladder emptying and a low gallbladder ejection fractionare evidence of impaired gallbladder contractility and most likely due to chronic cholecystitis. 07/[address] SCAN SHOWED: 1. Resolution of ascending colitis. 2. Hepatic steatosis. 3. Cholelithiasis. 4. Stable small renal cysts. ENDOSCOPIC STUDIES: 11/12/23 EGD SHOWED: Esophagus: GE junction at 36 cms. No esophagitis or Stockton's. Stomach: Patchy erythema in the antrum. Biopsies were obtained to check for Helicobacter pylori. Grade 2 flap valve on retroflexed examination of the cardia. Duodenum: Normal bulb and descending duodenum. Biopsies were obtained from 3rd part of the duodenum to check for celiac sprue Impression and Post Procedure Diagnosis: Endoscopy Findings: STOMACH: Mild antral gastritis - biopsies obtained to check for Helicobacter pylori DUODENUM: Normal - biopsies were obtained to check for celiac sprue BIOPSIES SHOWED: A. Small bowel, biopsy: Small-bowel/duodenal mucosa with preserved villi and no specific change. B. Gastric antrum, biopsy: Gastric antral mucosa with mild reactive changes, congestion, and focal minimal chronic inactive inflammation; negative for H pylori, intestinal metaplasia and dysplasia 04/12/23 COLONOSCOPY SHOWED:One medium sized polyp removed Focal area of edematous folds with ulcerations covered with exudate in the mid AC - likely resolving ischemic colitis and less likely IBD. Linear erosions with a few aphthoid ulcers in the distal rectum - biopsies were obtained to check for proctitis. Mild diverticulosis seen in the sigmoid colon Moderate hemorrhoids on retroflexed exam. Plan: Repeat Colonoscopy interval based on path results - in 3-5 years if polyps are adenomatous and 10 years if polyps are hyperplastic. Above findings were reviewed with the patient and colon polyps and ischemic colitis handouts were given in the discharge area Pt continues to experience postprandial abdominal cramps and bloating - though her symptoms are gradually improving. BIOPSIES SHOWED: A. Colon, right, biopsy: Colonic mucosa with marked regenerative crypt changes, increased eosinophils, minimal active inflammation and marked reactive epithelial changes without a basal lymphoplasmacytic infiltrate or granulomas (see comment). B. Colon, sigmoid, polyp: Tubular adenoma; negative for high-grade dysplasia and carcinoma. C. Colon, rectum, biopsy: Colonic mucosa with minor crypt distortion, lymphoid aggregate, and congestion; negative for colitis/proctitis, granulomas and dysplasia. Comment: (A): Appearances suggest a healing/resolving mucosal injury rather than a chronic colitis; clinical correlation and follow-up warranted TODAY'S VISIT: Patient yearly follow up for Chronic RUQ pain. Notes significant improvement in RUQ pain after Lap Jenelle Patient cc: Nauseas on and off, abdominal pain with bloating, acid reflex wth burning sensation on and off, Constipation and some difficulty swallowing. Complains of constipation - no BMs for a month. Had a small BM yesterday - took an hour and a half. PAST VISITS: Patient cc: abdominal upset, RLQ pain and bloating, heartburn with burning sensation on her throat, constipation and some swallowing problems. Also patient needed 90 days supplies for her Omeprazole due the insurance. Complains of abdominal pain daily. Takes Ondansetron which helps relieve the pain partially. Has a BM once every 3 weeks with passage of hard stools. Has been feeling better for the past few weeks and notes some improvement in her appetite. For the past 2 weeks she has been eating regular diet (bland) without post prandial pain Can have abdominal pain if she eats spicy food Pain was similar to pain during hospitalization and gets worse after eating. Denies radiation to the back or shoulder. Notes diarrhea when she has episodes of abdominal pain with 3-4 loose stools. Intermittent dysphagia to solids and liquids - drinks water to help it go down. Denies episodes of regurgitation. Colonoscopy results reviewed. Did not feel hungry for a few days after the colonoscopy. Feels normal now Patient denies symptoms of heartburn, dysphagia, nausea, vomiting, change in appetite or weight. Denies recent change in bowel habits, constipation, diarrhea, black stools or rectal bleeding. Patient denies major cardiac or pulmonary problems, loud snoring or sleep apnea Denies problems with anesthesia in the past. Denies being on chronic anticoagulation. Patient denies known family history of colon polyps, colon cancer or other GI malignancies. 52 YF with osteoarthritis complicated by chronic pain, mood disorder, obesity, hld, seen at [facility] [place] ED on 03/22/23 with back and right sided abd pain.?Pt gives a hx of intermittent back pain for which she takes oxycodonePt reports she started having back pain yesterday (03/21/23) around noon which later migrated to right abdomen. She used a heating pad and took Flexeril without relief. Pt reports the pain as constant (with intermittent waves of increased pain), stabbing in character and > than 10/10 in intensity Pt admits to associated nausea and vomiting and has been unable to eat or drink anything without gagging except ice chips and sips of fluids. Drinking fluids can make the pain worse. Patient denies fever or chills.? Pt had 2 soft to loose BMs yesterday (greenish in color) and denies having a BM today. She admits to passing gas without improvement in pain Pt denies having similar pain in the past. Pt denies any cardiac or pulmonary problems, loud snoring or sleep apnea. Patient denies smoking and admits to drinking off and on when she is in distress. 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 Pt has a daughter, an adopted daughter and 2 step children. Patient's mom has kidney stones, gallbladder disease, coronary artery disease and history of colon polyps.? Patient denies known family history of IBD or GI malignancy. ? Labs in the ED showed? leukocytosis with left shift, Normal lipase PFSH Medical History GERD (gastroesophageal reflux disease) Benign essential hypertension Sacroiliitis Pure hypercholesterolemia Obesity (BMI 30-39.9) Hyperglycemia Allergic rhinitis Left leg pain Frequent headaches Lesion of femoral nerve, left lower limb Environmental allergies Hx of iron deficiency anemia Back pain Restless leg syndrome Medial epicondylitis of right elbow Right elbow pain Lumbar degenerative disc disease Surgical History Hx laparoscopic cholecystectomy (01/27/24) S/P placement of nerve stimulator History of esophagogastroduodenoscopy (EGD) Hx of colonoscopy Hx of knee surgery S/p bilateral myringotomy with tube placement History of nasal surgery Hx of shoulder surgery Family History Mother Hypertension Father No problems noted. 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, 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) Hearing needs: No Vision needs: Yes (Glasses) Review of Systems Const All systems reviewed & are unremarkable except as noted in HPI and below Physical Exam Vital Signs: Last Vital Signs Pulse 92 05/04/24 09:59 BP 116/56 L 05/04/24 09:59 BMI result Body Mass Index 39.5 Const General: healthy appearing and no acute distress Nutritional Appearance: obese Orientation/consciousness: patient oriented x3 Limitations: no limitations HEENT Head: Yes normal to inspection Ears: hearing grossly normal bilaterally Eyes Sclerae: sclerae normal Pupils: Equal, round and reactive pupils present Neck Neck: Yes normal visual inspection Chest Chest palpation & inspection: normal inspection of the chest Resp Effort & Inspection: normal respiratory effort Auscultation: clear to auscultation bilaterally Cardio Palpation: normal PMI Rate: regular rate Rhythm: regular rhythm Heart sounds: S1 normal heart sound present, S2 normal heart sound present and no murmurs GI Palpation (GI): Soft to palpation, nontender and No hepatosplenomegaly present Auscultation: normal bowel sounds Rectal Exam - Female: deferred Skin General skin exam: no rashes or lesions noted Neuro General: patient oriented x3, gait normal and moves all extremities Cranial nerves: Yes Equal, round and reactive pupils present Psych Appearance: grossly normal Mental Status: mental status grossly normal Assessment & Plan Assessment & Plan (1) Colon cancer screening: Comment: 04/2023 Colonoscopy showed resolving focal colitis in the ascending colon and one medium sized polyp was removed. Repeat colonoscopy is advised in 3 years - due 04/2026 Code(s): Z12.11 - Encounter for screening for malignant neoplasm of colon Category: Medical (2) History of ischemic colitis: Code(s): Z87.19 - Personal history of other diseases of the digestive system Category: Medical (3) Chronic constipation: Code(s): K59.09 - Other constipation Category: Medical (4) GERD (gastroesophageal reflux disease): Code(s): K21.9 - Gastro-esophageal reflux disease without esophagitis Category: Medical (5) Chronic RUQ pain: Code(s): R10.11 - Right upper quadrant pain; G89.29 - Other chronic pain Category: Medical (6) Status post laparoscopic cholecystectomy: Code(s): Z90.49 - Acquired absence of other specified parts of digestive tract Category: Surgical (7) Obstipation: Code(s): K59.00 - Constipation, unspecified Category: Medical Plan 53 YF with osteoarthritis complicated by chronic pain, mood disorder, obesity, hld, admitted to [facility] [place] on 03/22/23 with back and right sided abd pain.? Pt reports the pain as constant (with intermittent waves of increased pain), stabbing in character and > than 10/10 in intensity Pt admits to associated nausea and vomiting and has been unable to eat or drink anything without gagging except ice chips and sips of fluids. Drinking fluids can make the pain worse. Patient denies fever or chills.? Pt had 2 soft to loose BMs yesterday (greenish in color) and denies having a BM today. She admits to passing gas without improvement in pain Abd CT scan showed?Marked mural thickening and pericolonic inflammatory changes are noted involving the right-sided colon starting from the level of the cecum to the hepatic flexure without evidence of any bowel obstruction, perforation or abscess formation. There are few shotty adjacent mesenteric lymph nodes noted. 12/16/23 HIDA scan showed GB EF of 4%. Pt has chronic RUQ pain with local tenderness Patient had a Lap Jenelle on 01/27/[address] Cardona. 05/04/24 Pt complains of constipation - no BM x 1 month (likely related to narcotics) pt was advised to: 1. Take 2 fleet enemas 2. Go on a liquid diet x 24 hrs and take Miralax prep to clean out the colon 3. Increase Linzess to 290 mcg daily Follow-up in 4 weeks Orders: Orders XR KUB Today K59.00 - Constipation, unspecified Medications: New bisacodyl (Fleet Bisacodyl) 10 mg (30 mL) DE BID PRN 74 mL 3RF constipation 30 days K59.00 - Constipation, unspecified polyethylene glycol 3350 (Miralax) Mix Miralax with 64 oz(8 cups) of Crystal light. Take 2 tablets of Dulcolax qt 12 pm. Wait to have your 1st bowel movement, then begin drinking Miralax. Drink a glass of Miralax every 10-15 minutes until you are finished. You will drink at least another 4 cups of clear liquid of your choice over the next 2 hours. Please drink as many clear liquids as possible 17 grams PO DAILY 238 grams 0RF 1 day K59.00 - Constipation, unspecified Changed From linaclotide (Linzess) 145 mcg PO QAM 30 days 30 caps 3RF K59.09 - Other constipation To linaclotide (Linzess) 290 mcg (2 x 145 mcg) PO QAM 60 caps 3RF 30 days K59.09 - Other constipation Coding Level of Care Code Est Pt Level 4 (15583) Diagnoses Colon cancer screening Z12.11 History of ischemic colitis Z87.19 Chronic constipation K59.09 GERD (gastroesophageal reflux disease) K21.9 Chronic RUQ pain R10.11; G89.29 Status post laparoscopic cholecystectomy Z90.49 Obstipation K59.00 Time Spent (min) 25
[2024-05-04 09:59] VITALS: BP 116/56; PULSE 92; BMI 39.5
== END 2024-05-04 10:45 | disposition home or self-care (01) ==
PROVIDERS: PCP Internal Medicine; Visit Provider Internal Medicine Gastroenterology
DX: Z12.11 Encounter for screening for malignant neoplasm of colon (principal); Z87.19 Personal history of other diseases of the digestive system; K59.09 Other constipation; K21.9 Gastro-esophageal reflux disease without esophagitis; R10.11 Right upper quadrant pain; G89.29 Other chronic pain; Z90.49 Acquired absence of other specified parts of digestive tract; K59.00 Constipation, unspecified; Z01.818 Encounter for other preprocedural examination
CPT/HCPCS: 99214

== ENCOUNTER → 2024-05-04 09:52 | Outpatient (BNVA) | payer OTHER, SELFPAY | PROVIDERS: PCP Internal Medicine; Visit Provider Internal Medicine Gastroenterology | DX: R10.11 Right upper quadrant pain (principal); G89.29 Other chronic pain; R14.0 Abdominal distension (gaseous); K21.9 Gastro-esophageal reflux disease without esophagitis; Z90.49 Acquired absence of other specified parts of digestive tract; K59.09 Other constipation | CPT/HCPCS: 99212 ==

== ENCOUNTER 2024-06-05 13:44 | Outpatient (REF) | payer OTHER, SELFPAY ==
--- NOTE | ~2024-06-05 | XR_ITS ---
EXAMINATION: XR ABDOMEN KUB CLINICAL INDICATION: Constipation COMPARISON: None available. TECHNIQUE: AP view of the abdomen. FINDINGS: Nonobstructive bowel gas pattern. Moderate stool burden. Right upper quadrant cholecystectomy clips. XR/XR KUB IMPRESSION: Nonobstructive bowel gas pattern. Moderate stool burden. Electronically signed by: Mone Dinh MD 06/20/2024 07:57 PM EDT RP
--- NOTE | ~2024-06-05 | XR_ITS ---
EXAMINATION: XR KNEE, LEFT CLINICAL INFORMATION: Left knee pain. Atraumatic arthropathy. COMPARISON: Left knee MRI dated 12/08/2022. Left knee radiographs dated 03/02/2023. TECHNIQUE: Four views of the left knee. FINDINGS: No acute fracture or dislocation. No joint space narrowing or marginal osteophytes. No osseous erosion. No abnormal soft tissue calcification. Trace joint effusion. XR/XR knee LT 4V IMPRESSION: Trace joint effusion. No acute osseous abnormality. Electronically signed by: Claudio William MD 06/09/2024 11:11 AM EDT
== END 2024-06-05 13:45 | disposition home or self-care (01) ==
LOC: HO.HMGCX 13:44
PROVIDERS: PCP Internal Medicine; Referring Provider Internal Medicine Gastroenterology; Visit Provider Anesthesiology
DX: M12.562 Traumatic arthropathy, left knee (principal); K59.00 Constipation, unspecified
CPT/HCPCS: 73564; 74018

== ENCOUNTER 2024-06-08 09:24 | Outpatient (AMB) | payer OTHER, SELFPAY ==
--- NOTE | 2024-06-08 09:26 | MHC.OFFVIS ---
Vital Signs 06/08/24 09:27 Height 5 ft 4 in BP 106/58 L Blood Pressure Location Lt brachial Position Sitting Pulse 89 Intake Visit Reasons: RUQ pain Intake Note: Patient follow up for RUQ pain. Patient cc: acid reflex and constipation. Denies any other GI issues. 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 Accompanied by: Family/Other Allergies cephalexin Allergy (Severe, Verified 04/19/25 11:53) Anaphylaxis Sulfa (Sulfonamide Antibiotics) Allergy (Intermediate, Verified 04/19/25 11:53) hives sulfamethoxazole (From BACTRIM) Allergy (Intermediate, Verified 04/19/25 11:53) RASH trimethoprim (From BACTRIM) Allergy (Intermediate, Verified 04/19/25 11:53) RASH Medication List - Last Reconciled 06/08/24 by Ashwin Juarez MD acetaminophen 650 mg (2 x 325 mg) PO QID PRN 30 days amlodipine (Norvasc) 10 mg PO DAILY 30 days bisacodyl (Fleet Bisacodyl) 10 mg (30 mL) [place] BID PRN 30 days cetirizine 10 mg PO DAILY PRN cyclobenzaprine 5 mg PO TID PRN escitalopram oxalate 20 mg PO DAILY 90 days hydroxyzine HCl 25 mg PO TID PRN linaclotide (Linzess) 290 mcg (2 x 145 mcg) PO QAM 30 days losartan 50 mg PO DAILY 90 days omeprazole 20 mg PO DAILY 90 days ondansetron 4 mg PO Q8H PRN 15 days oxycodone 15 mg PO Q8H PRN 14 days polyethylene glycol 3350 (Miralax) 17 grams PO DAILY 1 day sennosides-docusate sodium 8.6-50 mg (Stool Softener-Stimulant Laxative) 1 cap PO BEDTIME HPI HPI RUQ pain: Details: GI clinic visit for this 53 YF for FU after an episode of right sided abdominal pain. Patient was hospitalized at [facility] in March 2023 with right-sided abdominal pain diagnosed with ischemic colitis. She had recurrent pain in May and June and was treated with p.o. Augmentin for 10 days with resolution. IMAGING STUDIES: 12/10/23 HIDA SCAN SHOWED: There is very minimal gallbladder emptying during the sincalide infusion. At the end of the study the gallbladder shows marked retention of activity at 30 minutes following initiation of the sincalide infusion. There is almost complete clearance of activity from the liver at this time and diffuse small bowel activity Is well visualized. The calculated gallbladder ejection fraction is 4% (normal gallbladder ejection fraction is greater than 35%). IMPRESSION: 1. Visualization of the gallbladder is evidence of a patent cystic ductand strong evidence against the diagnosis of acute cholecystitis. The common bile duct is patent. Liver function appears normal. 2. Poor gallbladder emptying and a low gallbladder ejection fractionare evidence of impaired gallbladder contractility and most likely due to chronic cholecystitis. 07/[address] SCAN SHOWED: 1. Resolution of ascending colitis. 2. Hepatic steatosis. 3. Cholelithiasis. 4. Stable small renal cysts. ENDOSCOPIC STUDIES: 11/12/23 EGD SHOWED: Esophagus: GE junction at 36 cms. No esophagitis or Stockton's. Stomach: Patchy erythema in the antrum. Biopsies were obtained to check for Helicobacter pylori. Grade 2 flap valve on retroflexed examination of the cardia. Duodenum: Normal bulb and descending duodenum. Biopsies were obtained from 3rd part of the duodenum to check for celiac sprue Impression and Post Procedure Diagnosis: Endoscopy Findings: STOMACH: Mild antral gastritis - biopsies obtained to check for Helicobacter pylori DUODENUM: Normal - biopsies were obtained to check for celiac sprue BIOPSIES SHOWED: A. Small bowel, biopsy: Small-bowel/duodenal mucosa with preserved villi and no specific change. B. Gastric antrum, biopsy: Gastric antral mucosa with mild reactive changes, congestion, and focal minimal chronic inactive inflammation; negative for H pylori, intestinal metaplasia and dysplasia 04/12/23 COLONOSCOPY SHOWED:One medium sized polyp removed Focal area of edematous folds with ulcerations covered with exudate in the mid AC - likely resolving ischemic colitis and less likely IBD. Linear erosions with a few aphthoid ulcers in the distal rectum - biopsies were obtained to check for proctitis. Mild diverticulosis seen in the sigmoid colon Moderate hemorrhoids on retroflexed exam. Plan: Repeat Colonoscopy interval based on path results - in 3-5 years if polyps are adenomatous and 10 years if polyps are hyperplastic. Above findings were reviewed with the patient and colon polyps and ischemic colitis handouts were given in the discharge area Pt continues to experience postprandial abdominal cramps and bloating - though her symptoms are gradually improving. BIOPSIES SHOWED: A. Colon, right, biopsy: Colonic mucosa with marked regenerative crypt changes, increased eosinophils, minimal active inflammation and marked reactive epithelial changes without a basal lymphoplasmacytic infiltrate or granulomas (see comment). B. Colon, sigmoid, polyp: Tubular adenoma; negative for high-grade dysplasia and carcinoma. C. Colon, rectum, biopsy: Colonic mucosa with minor crypt distortion, lymphoid aggregate, and congestion; negative for colitis/proctitis, granulomas and dysplasia. Comment: (A): Appearances suggest a healing/resolving mucosal injury rather than a chronic colitis; clinical correlation and follow-up warranted TODAY'S VISIT: Patient cc: acid reflex and constipation. Denies any other GI issues. Continues to have constipation. No BM x 3-4 weeks and then multiple BMs over 2-3 BM Last BM was 1-2 weeks ago - initial BM is hard and pt has to strain to have a BM PAST VISITS: Patient yearly follow up for Chronic RUQ pain. Notes significant improvement in RUQ pain after Lap Jenelle Patient cc: Nauseas on and off, abdominal pain with bloating, acid reflex wth burning sensation on and off, Constipation and some difficulty swallowing. Complains of constipation - no BMs for a month. Had a small BM yesterday - took an hour and a half. Patient cc: abdominal upset, RLQ pain and bloating, heartburn with burning sensation on her throat, constipation and some swallowing problems. Also patient needed 90 days supplies for her Omeprazole due the insurance. Complains of abdominal pain daily. Takes Ondansetron which helps relieve the pain partially. Has a BM once every 3 weeks with passage of hard stools. Has been feeling better for the past few weeks and notes some improvement in her appetite. For the past 2 weeks she has been eating regular diet (bland) without post prandial pain Can have abdominal pain if she eats spicy food Pain was similar to pain during hospitalization and gets worse after eating. Denies radiation to the back or shoulder. Notes diarrhea when she has episodes of abdominal pain with 3-4 loose stools. Intermittent dysphagia to solids and liquids - drinks water to help it go down. Denies episodes of regurgitation. Colonoscopy results reviewed. Did not feel hungry for a few days after the colonoscopy. Feels normal now Patient denies symptoms of heartburn, dysphagia, nausea, vomiting, change in appetite or weight. Denies recent change in bowel habits, constipation, diarrhea, black stools or rectal bleeding. Patient denies major cardiac or pulmonary problems, loud snoring or sleep apnea Denies problems with anesthesia in the past. Denies being on chronic anticoagulation. Patient denies known family history of colon polyps, colon cancer or other GI malignancies. 52 YF with osteoarthritis complicated by chronic pain, mood disorder, obesity, hld, seen at [facility] ED on 03/22/23 with back and right sided abd pain.?Pt gives a hx of intermittent back pain for which she takes oxycodonePt reports she started having back pain yesterday (03/21/23) around noon which later migrated to right abdomen. She used a heating pad and took Flexeril without relief. Pt reports the pain as constant (with intermittent waves of increased pain), stabbing in character and > than 10/10 in intensity Pt admits to associated nausea and vomiting and has been unable to eat or drink anything without gagging except ice chips and sips of fluids. Drinking fluids can make the pain worse. Patient denies fever or chills.? Pt had 2 soft to loose BMs yesterday (greenish in color) and denies having a BM today. She admits to passing gas without improvement in pain Pt denies having similar pain in the past. Pt denies any cardiac or pulmonary problems, loud snoring or sleep apnea. Patient denies smoking and admits to drinking off and on when she is in distress. 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 Pt has a daughter, an adopted daughter and 2 step children. Patient's mom has kidney stones, gallbladder disease, coronary artery disease and history of colon polyps.? Patient denies known family history of IBD or GI malignancy. ? Labs in the ED showed? leukocytosis with left shift, Normal lipase PFSH Medical History GERD (gastroesophageal reflux disease) Benign essential hypertension Sacroiliitis Pure hypercholesterolemia Obesity (BMI 30-39.9) Hyperglycemia Allergic rhinitis Left leg pain Frequent headaches Lesion of femoral nerve, left lower limb Environmental allergies Hx of iron deficiency anemia Back pain Restless leg syndrome Medial epicondylitis of right elbow Right elbow pain Lumbar degenerative disc disease Surgical History Hx laparoscopic cholecystectomy (01/27/24) S/P placement of nerve stimulator History of esophagogastroduodenoscopy (EGD) Hx of colonoscopy Hx of knee surgery S/p bilateral myringotomy with tube placement History of nasal surgery Hx of shoulder surgery Family History Mother Hypertension Father No problems noted. 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) Hearing needs: No Vision needs: Yes (Glasses) Review of Systems Const All systems reviewed & are unremarkable except as noted in HPI and below Physical Exam Vital Signs: Last Vital Signs Pulse 89 06/08/24 09:27 BP 106/58 L 06/08/24 09:27 Const General: healthy appearing and no acute distress Nutritional Appearance: obese Orientation/consciousness: patient oriented x3 Limitations: no limitations HEENT Head: Yes normal to inspection Ears: hearing grossly normal bilaterally Eyes Sclerae: sclerae normal Pupils: Equal, round and reactive pupils present Neck Neck: Yes normal visual inspection Chest Chest palpation & inspection: normal inspection of the chest Resp Effort & Inspection: normal respiratory effort Auscultation: clear to auscultation bilaterally Cardio Palpation: normal PMI Rate: regular rate Rhythm: regular rhythm Heart sounds: S1 normal heart sound present, S2 normal heart sound present and no murmurs GI Palpation (GI): Soft to palpation, nontender and No hepatosplenomegaly present Auscultation: normal bowel sounds Rectal Exam - Female: deferred Skin General skin exam: no rashes or lesions noted Neuro General: patient oriented x3, gait normal and moves all extremities Cranial nerves: Yes Equal, round and reactive pupils present Psych Appearance: grossly normal Mental Status: mental status grossly normal Assessment & Plan Assessment & Plan (1) Obstipation: Code(s): K59.00 - Constipation, unspecified Category: Medical Plan 53 YF with osteoarthritis complicated by chronic pain, mood disorder, obesity, hld, admitted to [facility] on 03/22/23 with back and right sided abd pain.? Pt reports the pain as constant (with intermittent waves of increased pain), stabbing in character and > than 10/10 in intensity Pt admits to associated nausea and vomiting and has been unable to eat or drink anything without gagging except ice chips and sips of fluids. Drinking fluids can make the pain worse. Patient denies fever or chills.? Pt had 2 soft to loose BMs yesterday (greenish in color) and denies having a BM today. She admits to passing gas without improvement in pain Abd CT scan showed?Marked mural thickening and pericolonic inflammatory changes are noted involving the right-sided colon starting from the level of the cecum to the hepatic flexure without evidence of any bowel obstruction, perforation or abscess formation. There are few shotty adjacent mesenteric lymph nodes noted. 12/16/23 HIDA scan showed GB EF of 4%. Pt has chronic RUQ pain with local tenderness Patient had a Lap Jenelle on 01/27/[address] Cardona. 05/04/24 Pt complains of constipation - no BM x 1 month (likely related to narcotics) pt was advised to: 1. Take 2 fleet enemas 2. Go on a liquid diet x 24 hrs and take Miralax prep to clean out the colon 3. Increase Linzess to 290 mcg daily 06/08/25 Continues to have constipation. No BM x 3-4 weeks and then multiple BMs over 2-3 BM Last BM was 1-2 weeks ago - initial BM is hard and pt has to strain to have a BM Patient advised to switch from Linzess to Amitiza and take Fleet enema p.r.n. for constipation Medications: New lubiprostone (Amitiza) 24 mcg PO DAILY 90 caps 1RF 90 days K59.00 - Constipation, unspecified Changed From bisacodyl 10 mg (30 mL) NY BID 30 days PRN 74 mL 3RF constipation K59.00 - Constipation, unspecified To bisacodyl (Fleet Bisacodyl) 10 mg (30 mL) NY BID PRN 300 mL 1RF constipation 60 days K59.00 - Constipation, unspecified Coding Level of Care Code Est Pt Level 4 (96076) Diagnoses Obstipation K59.00 Time Spent (min) 21
[2024-06-08 09:27] VITALS: BP 106/58; PULSE 89
== END 2024-06-08 10:17 | disposition home or self-care (01) ==
PROVIDERS: PCP Internal Medicine; Visit Provider Internal Medicine Gastroenterology
DX: K59.00 Constipation, unspecified (principal)
CPT/HCPCS: 99499

== ENCOUNTER → 2024-06-08 09:24 | Outpatient (BNVA) | payer OTHER, SELFPAY | PROVIDERS: PCP Internal Medicine; Visit Provider Internal Medicine Gastroenterology ==

== ENCOUNTER 2024-06-16 10:03 | Outpatient (REF) | payer OTHER, SELFPAY ==
--- NOTE | ~2024-06-16 | MM_ITS ---
EXAMINATION: MM SCREENING DIGITAL BREAST TOMOSYNTHESIS, BILATERAL CLINICAL INFORMATION: Screening. Asymptomatic. COMPARISON: Mammography: Comparison is made with available priors TECHNIQUE: Digital breast mammography with tomosynthesis is performed in both the craniocaudal and mediolateral oblique views along with computer-aided detection (CAD). FINDINGS: There are scattered areas of fibroglandular density (ACR BI-RADS breast composition Category b). Right breast postsurgical changes are stable. There are no significant masses, abnormal calcifications, or other abnormalities. MM/MM tomosynthesis screening BI IMPRESSION: No mammographic evidence of malignancy. ASSESSMENT: BI-RADS BI-RADS 2 - Benign Findings RECOMMENDATION: Routine annual mammography screening. 1 year F/U This examination should not preclude the clinical evaluation of a suspicious palpable abnormality. This patient's information was entered into a reminder system with a target due date for their next mammogram. Electronically signed by: Itzel Bhatt DO 07/02/2024 03:14 PM EDT
== END 2024-06-16 10:04 | disposition home or self-care (01) ==
LOC: HO.MAMMO 10:03
PROVIDERS: PCP Internal Medicine; Visit Provider Internal Medicine
DX: Z12.31 Encounter for screening mammogram for malignant neoplasm of breast (principal)
CPT/HCPCS: 77063; 77067

== ENCOUNTER → 2024-06-16 10:15 | Outpatient (BNV) | payer OTHER, SELFPAY | PROVIDERS: PCP Internal Medicine; Visit Provider Internal Medicine | DX: Z12.31 Encounter for screening mammogram for malignant neoplasm of breast (principal) | CPT/HCPCS: 77063; 77067 ==

== ENCOUNTER 2024-07-27 09:52 | Outpatient (AMB) | payer OTHER, SELFPAY ==
[2024-07-27 10:01] VITALS: BP 120/82; PULSE 92; O2SAT 98; BMI 37.5
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
== END 2024-07-27 10:55 | disposition home or self-care (01) ==
PROVIDERS: PCP Internal Medicine; Visit Provider Internal Medicine
DX: M51.360 Other intervertebral disc degeneration, lumbar region with discogenic back pain only (principal); M47.812 Spondylosis without myelopathy or radiculopathy, cervical region; G57.22 Lesion of femoral nerve, left lower limb; K59.09 Other constipation; I10 Essential (primary) hypertension; E78.00 Pure hypercholesterolemia, unspecified; K21.9 Gastro-esophageal reflux disease without esophagitis; J30.9 Allergic rhinitis, unspecified; F41.9 Anxiety disorder, unspecified; E66.9 Obesity, unspecified

== ENCOUNTER → 2024-07-27 09:52 | Outpatient (BNVA) | payer OTHER, SELFPAY | PROVIDERS: PCP Internal Medicine; Visit Provider Internal Medicine | DX: M51.360 Other intervertebral disc degeneration, lumbar region with discogenic back pain only (principal); M47.812 Spondylosis without myelopathy or radiculopathy, cervical region; G57.22 Lesion of femoral nerve, left lower limb; K59.09 Other constipation; I10 Essential (primary) hypertension; E78.00 Pure hypercholesterolemia, unspecified; K21.9 Gastro-esophageal reflux disease without esophagitis; J30.9 Allergic rhinitis, unspecified; F41.9 Anxiety disorder, unspecified; E66.9 Obesity, unspecified; Z68.37 Body mass index [BMI] 37.0-37.9, adult; Z79.891 Long term (current) use of opiate analgesic; Z79.899 Other long term (current) drug therapy | CPT/HCPCS: 90471; 96127; 99212 ==

== ENCOUNTER 2024-07-27 11:15 | Outpatient (REF) | payer OTHER, SELFPAY ==
[2024-07-27 13:17] LABS: MANUAL DIFF FLAG NO
[2024-07-27 13:34] LABS: Basophils Absolute Auto 0.1 X10*3/uL (0.0-0.2); Basophils Percent Auto 0.9 % (0-2); Eosinophils Percent Auto 0.1 % (0-4); Hematocrit 39.2 % (37.0-47.0); Hemoglobin 13.1 g/dl (12.0-16.0); Imm Gran Abs Auto 0.02 X10*3/uL (0.00-0.03); Imm Gran Pct Auto 0.3 % (0.0-0.4); Lymphocytes Absolute Auto 2.5 X10*3/uL (1.2-4.9); Lymphocytes Percent Auto 31.2 % (20-40); Mean Corpuscular HGB Conc 33.4 g/dl (31.0-35.0); Mean Corpuscular Volume 86.7 fL (80.0-98.0); Monocytes Absolute Auto 0.5 X10*3/uL (0.1-1.2); Monocytes Percent Auto 6.8 % (2-11); Neutrophils Absolute Auto 4.8 x10*3/uL (2.0-8.3); Neutrophils Percent Auto 60.7 % (45-73); Platelet Count 415 X10*3/uL (160-400); Red Blood Count 4.52 X10*6/uL (4.20-5.50); Red Cell Distribution Width 13.6 % (11.0-16.0); White Blood Count 7.9 X10*3/uL (4.8-10.8)
[2024-07-27 13:52] LABS: Estimated Average Glucose 123 mg/dL; Hemoglobin A1C 138.6507 umol/L; Hemoglobin A1c % 5.9 % (<6.0); Total Hemoglobin (HGBA1C) 3340.9533 umol/L
[2024-07-27 13:59] LABS: Appearance Urine Clear; Color Urine Yellow; Glucose Urine UA Negative (Negative); Leukocyte Esterase Urine Trace (Negative); Nitrite Urine Negative (Negative); PH 7.5 (5.0-9.0); Specific Gravity - Urine 1.015 (1.005-1.025); UMIC TRIGGER UACC YES; Urine Blood Negative (Negative); Urine Ketones Negative (Negative); Urine Protein Negative (Neg-Trace)
[2024-07-27 14:00] LABS: Alanine Aminotransferase 25 U/L (0-31); Albumin Level 4.6 g/dL (3.5-5.0); Alkaline Phosphatase 177 U/L (39-117); Anion Gap 12 (12-20); Aspartate Amino Transferase 25 U/L (5-31); Bilirubin Total 0.3 mg/dL (0.0-1.0); Blood Urea Nitrogen 7 mg/dL (9-16); Calcium 10.1 mg/dL (8.4-10.2); Carbon Dioxide 29 mmol/L (22-29); Chloride 99 mmol/L (96-108); Cholesterol 276 mg/dL (<200); Estimated Glomerular Filt Rate > 60; Glucose Fasting 108 mg/dL (60-99); HDL Cholesterol 47 mg/dL (>40); LDL Cholesterol Calculated 172 mg/dL (<100); Potassium 3.7 mmol/L (3.3-5.1); Sodium 136 mmol/L (135-145); Total Protein 8.5 g/dL (6.5-8.0); Triglycerides 289 mg/dL (<150)
[2024-07-27 14:14] LABS: Bacteria Urine None Seen (None Seen); RBC Urine 0-2 /HPF (0-2); WBC Urine 0-5 /HPF (0-5)
[2024-07-27 14:19] LABS: TSH reflex Free T4 1.99 uIU/mL (0.32-4.0); Vitamin D 25-OH Total 23.4 ng/mL (>30)
== END 2024-07-27 11:16 | disposition home or self-care (01) ==
LOC: HO.10HDL 11:15
PROVIDERS: Visit Provider Internal Medicine
DX: D64.9 Anemia, unspecified (principal); R73.9 Hyperglycemia, unspecified; E78.00 Pure hypercholesterolemia, unspecified; E55.9 Vitamin D deficiency, unspecified
CPT/HCPCS: 36415; 80053; 80061; 81001; 82306; 83036; 84443; 85025

== ENCOUNTER 2025-02-20 13:25 | Outpatient (AMB) | payer OTHER, SELFPAY ==
[2025-02-20 13:33] VITALS: BP 140/82; PULSE 109; O2SAT 96; BMI 41.4
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
== END 2025-02-20 14:08 | disposition home or self-care (01) ==
LOC: HO.HMCH 13:25
PROVIDERS: PCP Internal Medicine; Visit Provider Internal Medicine
DX: M51.360 Other intervertebral disc degeneration, lumbar region with discogenic back pain only (principal); M47.812 Spondylosis without myelopathy or radiculopathy, cervical region; E66.9 Obesity, unspecified; Z68.41 Body mass index [BMI] 40.0-44.9, adult; G57.22 Lesion of femoral nerve, left lower limb; K59.09 Other constipation; I10 Essential (primary) hypertension; E78.00 Pure hypercholesterolemia, unspecified; R22.0 Localized swelling, mass and lump, head; R10.11 Right upper quadrant pain; K21.9 Gastro-esophageal reflux disease without esophagitis; J30.9 Allergic rhinitis, unspecified

== ENCOUNTER → 2025-02-20 13:25 | Outpatient (BNVA) | payer OTHER, SELFPAY | PROVIDERS: PCP Internal Medicine; Visit Provider Internal Medicine | DX: M51.360 Other intervertebral disc degeneration, lumbar region with discogenic back pain only (principal); M47.812 Spondylosis without myelopathy or radiculopathy, cervical region; G57.22 Lesion of femoral nerve, left lower limb; K59.09 Other constipation; I10 Essential (primary) hypertension; E78.00 Pure hypercholesterolemia, unspecified; R22.0 Localized swelling, mass and lump, head; R10.11 Right upper quadrant pain; K21.9 Gastro-esophageal reflux disease without esophagitis; J30.9 Allergic rhinitis, unspecified; F41.9 Anxiety disorder, unspecified; E66.9 Obesity, unspecified; Z68.41 Body mass index [BMI] 40.0-44.9, adult; Z79.891 Long term (current) use of opiate analgesic; Z79.899 Other long term (current) drug therapy | CPT/HCPCS: 96127; 99212 ==

== ENCOUNTER 2025-02-27 09:19 | Outpatient (REF) | payer OTHER, SELFPAY ==
--- NOTE | ~2025-02-27 | US_ITS ---
CLINICAL HISTORY: R22.0 - Localized swelling, mass and lump, head Soft tissue ultrasound left neck Comparison: None Findings: 1.2 x 1.5 cm benign lymph nodes noted. Benign fatty simba are preserved within both. No other abnormality is identified. Left parotid gland homogeneous. Impression: Benign adenopathy, otherwise unremarkable This document has been electronically signed by: Ezio Raza MD on 02/27/2025 21:36:27
--- NOTE | ~2025-02-27 | US_ITS ---
CLINICAL HISTORY: R19.01 - Right upper quadrant abdominal swelling, mass and lump US abdomen complete Comparison: None Findings: Cholecystectomy.Common duct measures 5 mm. Fatty infiltration of the liver without focal abnormality. Main portal vein patent with normal direction of flow. Pancreas is unremarkable. Aorta and IVC patent and normal in caliber. The right kidney is normal, 11.4 cm in length. No focal abnormality or hydronephrosis. 2.5 cm lower pole cyst. The left kidney is normal, 10.5 cm in length. No focal abnormality or hydronephrosis. The spleen is normal, 11.1 cm in length. No focal abnormality. Impression: Fatty infiltration of the liver This document has been electronically signed by: Ezio Raza MD on 02/27/2025 21:37:11
== END 2025-02-27 09:20 | disposition home or self-care (01) ==
LOC: HO.US 09:19
PROVIDERS: PCP Internal Medicine; Visit Provider Internal Medicine
DX: R19.01 Right upper quadrant abdominal swelling, mass and lump (principal); R10.11 Right upper quadrant pain; R22.0 Localized swelling, mass and lump, head
CPT/HCPCS: 76536; 76700

== ENCOUNTER → 2025-02-27 09:21 | Outpatient (BNV) | payer OTHER, SELFPAY | PROVIDERS: PCP Internal Medicine; Visit Provider Radiology Diagnostic Radiology | DX: K76.0 Fatty (change of) liver, not elsewhere classified (principal); R22.0 Localized swelling, mass and lump, head | CPT/HCPCS: 76536; 76700 ==

== ENCOUNTER 2025-03-13 15:35 | Outpatient (AMB) | payer OTHER, SELFPAY ==
--- NOTE | 2025-03-13 15:36 | A.OFFPC_ITS ---
Vital Signs 03/13/25 15:37 Height 5 ft 4 in Weight 250 lb BMI 42.9 BP 102/56 L Blood Pressure Location Lt brachial Position Sitting Pulse 98 Pulse Source Pulse Oximeter Pulse Oximetry (%) 95 Oxygen Delivery Method Room Air Intake Visit Reasons: swelling under both ears Hedis Registered Nurse Rn Required: No Accompanied by: Self / Same As Patient Allergies cephalexin Allergy (Severe, Verified 03/13/25 15:45) Anaphylaxis Sulfa (Sulfonamide Antibiotics) Allergy (Intermediate, Verified 03/13/25 15:45) hives sulfamethoxazole [From BACTRIM] Allergy (Intermediate, Verified 03/13/25 15:45) RASH trimethoprim [From BACTRIM] Allergy (Intermediate, Verified 03/13/25 15:45) RASH Medication List - Last Reconciled 03/13/25 by Elda Green PA-C acetaminophen 650 mg (2 x 325 mg) PO QID PRN 30 days amlodipine (Norvasc) 10 mg PO DAILY 30 days atorvastatin 10 mg PO BEDTIME 90 days azelastine 1 spray intranasal BID cetirizine 10 mg PO DAILY PRN cyclobenzaprine 5 mg PO TID PRN escitalopram oxalate 20 mg PO DAILY 90 days fexofenadine (Allergy Relief (fexofenadine)) 180 mg PO DAILY hydroxyzine HCl 25 mg PO TID PRN linaclotide (Linzess) 290 mcg (2 x 145 mcg) PO QAM 60 days losartan 50 mg PO DAILY 90 days lubiprostone (Amitiza) 24 mcg PO DAILY 90 days omeprazole 20 mg PO DAILY 90 days ondansetron 4 mg PO Q8H PRN 15 days oxycodone 10 mg PO Q8H PRN 28 days polyethylene glycol 3350 (Miralax) 17 grams PO DAILY 1 day sennosides-docusate sodium 8.6-50 mg (Stool Softener-Stimulant Laxative) 1 cap PO BEDTIME Tobacco use date assessed: 03/13/25 Dental Screening Dental Screen Date: 03/13/25 Did you have a dental visit in the last 12 months?: Yes Did you have a dental problem in the last 6 months where you did not have access to dental care?: No Was dental information given to patient?: Patient has dentist HPI swelling under both ears HPI Details 54-year-old female with past medical his tory of hypercholesterolemia, hypertension, anxiety, chronic pain, GERD last seen by Dr. Mullen 02/2025 coming in for acute problem. Presenting with swelling and ear pain. The patient describes recurrent painful swellings in the neck, attributable to benign lymphadenopathy based on previous imaging. Additional ear symptoms include ear pain, full sensation, and constant bilateral tinnitus, potentially linked to TMJ disorder with known history of clenching. Abdominal complaints began around November, correlating with stress from a family event, with episodes of pain centered on prior surgical sites. Recent ultrasound did not reveal any acute pathology, but mentioned a fatty liver. She does also mentioned occasional room spinning sensations that has been intermittent for the last several months. [facility] Medical History GERD (gastroesophageal reflux disease) Benign essential hypertension Sacroiliitis Pure hypercholesterolemia Obesity (BMI 30-39.9) Hyperglycemia Allergic rhinitis Left leg pain Frequent headaches Lesion of femoral nerve, left lower limb Environmental allergies Hx of iron deficiency anemia Back pain Restless leg syndrome Medial epicondylitis of right elbow Right elbow pain Lumbar degenerative disc disease Surgical History Hx laparoscopic cholecystectomy (01/27/24) S/P placement of nerve stimulator History of esophagogastroduodenoscopy (EGD) Hx of colonoscopy Hx of knee surgery S/p bilateral myringotomy with tube placement History of nasal surgery Hx of shoulder surgery Family History Mother Hypertension Father No problems noted. 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 1. Little interest or pleasure in doing things: nearly every day 2. Feeling down, depressed, or hopeless: several days 3. Trouble falling or staying asleep, or sleeping too much: several days 4. Feeling tired or having little energy: several days 5. Poor appetite or overeating: nearly every day 6. Feeling bad about yourself - or that you are a failure or have let yourself or your family down: nearly every day 7. Trouble concentrating on things, such as reading the newspaper or watching television: not at all 8. Moving or speaking so slowly that other people could have noticed. Or the opposite - being so fidgety or restless that you have been moving around a lot more than usual: not at all 9. Thoughts that you would be better off or of hurting yourself in some way: not at all Total score: 12 Depression Screening Interpretation: Positive Depression Screening Follow-up: Existing condition and In treatment Depression Screening Done: Yes 65454 - PHQ-9 Billing: Yes Source: Developed by Drs. Félix Johnston, Rebeca Angel, Charbel Ramirez and colleagues, with an educational chino from [employer]. Thrive Questionnaire Date Thrive assessed: 03/13/25 I am a: Patient What is your living situation today?: I have a steady place to live Within the past 12 months, did the food you bought not last and you didn't have the money to get more?: Never true Within the past 12 months, did you worry whether your food would run out before you got money to buy more?: Never true Do you have trouble paying for medicines?: No Do you have trouble getting transportation to medical appointments?: No Do you have trouble paying your heating and electricity bill?: No Do you have trouble taking care of your child, family member or friend?: No Do you have trouble with day-to-day activities such as bathing, preparing meals, shopping, managing finances, etc.?: No Are you currently unemployed and looking for a job?: No Are you interested in more education?: No Please select the resources that you would like help with: None Currently or been in a relationship where the following occur: No concerns reported THRIVE Score: 0 AUDIT C Alcohol Use Questionnaire (AUDIT-C) 1. How often do you have a drink containing alcohol?: Never 3. How often do you have six or more drinks on one occasion?: Never Total Score: 0 Score Reviewed/Action Taken: Yes JHONATAN-7 AMB Questionnaire JHONATAN-7 Date JHONATAN - 7 assessed: 03/13/25 Feeling nervous, anxious, or on edge: 0 = Not at all Not being able to stop or control worryin = More than half the days Worrying too much about different things: 0 = Not at all Trouble relaxin = Not at all Being so restless that it is hard to sit still: 0 = Not at all Becoming easily annoyed or irritable: 0 = Not at all Feeling afraid as if something awful might happen: 0 = Not at all Total JHONATAN-7 score (0-4 normal; 5-9 mild; 10-14 moderate; 15-21 severe): 2 Source: Developed by Drs. Félix Johnston, Rebeca Angel, Charbel Ramirez and colleagues, with an educational chino from [employer]. Review of Systems Const Denies body aches, Denies chills, Denies fever(s), Denies headache(s) and Denies poor appetite Eyes Reports no additional complaints ENT Details: Decreased hearing Denies dysphagia, Denies dizziness, Denies headache(s), Denies odynophagia and Reports tinnitus Card Denies chest pain, Denies lightheadedness and Denies dyspnea Resp Denies cough and Denies dyspnea GI Reports as per HPI, Reports abdominal pain, Denies constipation, Denies dysphagia, Denies diarrhea, Denies nausea, Denies odynophagia and Denies vomiting Reports no additional complaints Musc Reports no additional complaints and Denies abnormal gait Skin/Breast Reports system reviewed and no additional complaints, except as documented Neuro Denies abnormal gait, Denies dizziness and Denies headache(s) Psych Reports no additional complaints Physical exam (Primary Care) Vital Signs: Last Vital Signs Pulse 98 03/13/25 15:37 BP 102/56 L 03/13/25 15:37 Pulse Ox 95 03/13/25 15:37 Oxygen Delivery Method Room Air 03/13/25 15:37 BMI result Body Mass Index 42.9 Tobacco/Smoking Status: Tobacco use Status Tobacco use date assessed 03/13/25 03/13/25 15:41 Patient Tobacco Use Status Former Tobacco user 03/13/25 15:41 Tobacco use type Cigarette 03/13/25 15:41 e-Cigarette/Vaping Use Currently Using 03/13/25 15:41 PHQ-9: PHQ-9 Score PHQ-9: Total score 12 03/13/25 16:58 Depression Screening Interpretation: Positive Depression Screening Follow-up: Existing condition and In treatment Thrive Assessment: Date of Thrive Assessment Date Thrive assessed 03/13/25 03/13/25 15:41 Currently or been in a relationship where the following occur: No concerns reported Const General: cooperative, healthy appearing, comfortable and no acute distress Orientation/consciousness: patient oriented x3 HENMT Head: Yes normocephalic Ears: hearing grossly normal bilaterally, TM's normal bilaterally and EAC's normal General nose exam: Normal external nose present Face and sinus: No sinus tenderness Mouth: abnormal TMJ (Tenderness to palpation over bilateral TMJ) Eyes General: appearance normal, both eyes and all related structures Conjunctivae: conjunctivae normal Neck Neck: Yes full ROM and Yes no lymphadenopathy Resp Effort & Inspection: normal respiratory effort Auscultation: clear to auscultation bilaterally, no crackles, no rales, no rhonchi and no wheezes Cardio Rate: regular rate Rhythm: regular rhythm GI Palpation (GI): Soft to palpation, not firm, Tenderness to palpation present (GI) (very mild) in the RUQ, no guarding, not rigid, no masses and No Rebound tenderness present Skin General skin exam: no rashes or lesions noted Neuro General: patient oriented x3 Gait exam (Neuro): Normal gait present Extrem General: Yes normal to inspection, Yes full ROM and No edema Psych Affect: normal affect Attitude: cooperative Insight: Good insight present (Psych) Judgement: Good judgement present (Psych) Coding Level of Care Code Est Pt Level 4 (09952) Diagnoses Decreased hearing H91.90 Mandibular mass R22.0 RUQ abdominal pain R10.11 Seasonal allergies J30.2 TMJ arthralgia M26.629 Additional Codes PHQ-9 - 01536 - PHQ-9 Billing: Yes ([id number]) Assessment & Plan Assessment & Plan (1) Decreased hearing: Code(s): H91.90 - Unspecified hearing loss, unspecified ear Category: Medical Plan: Patient complaining of tinnitus and decreased hearing referral was placed for speech and hearing. (2) Mandibular mass: Comment: LEFT JAW/TMJ Code(s): R22.0 - Localized swelling, mass and lump, head Category: Medical Plan: Patient having ultrasound of the neck showing benign lymphadenopathy. No tenderness to palpation on exam no significant swelling or masses palpated. Con tinue to monitor symptoms at this time and reach out if this should change. Patient is not having any symptoms of dysphagia or odynophagia at this time. Discussed with the lymphadenopathy may be a result of upper respiratory infection or possibly allergies. (3) RUQ abdominal pain: Code(s): R10.11 - Right upper quadrant pain Category: Medical Plan: Patient complaining of right upper quadrant abdominal pain she did recently have ultrasound that did not reveal any underlying issue. At this time she does not have signs or symptoms out acute abdomen, no change in bowel habits. She has a appointment with Gastroenterology coming up to evaluate this concern. Reviewed with patient red flag symptoms and when to present for re-evaluation. (4) Seasonal allergies: Code(s): J30.2 - Other seasonal allergic rhinitis Category: Medical Plan: Patient has been on Zyrtec for many years plan to switch to Ofe for few months and then may switch back to Zyrtec. Prescription also sent for Astelin nasal spray as she does not like Flonase. (5) TMJ arthralgia: Code(s): M26.629 - Arthralgia of temporomandibular joint, unspecified side Category: Medical Plan: Patient does report crunching and grinding her teeth discussed that this may cause inflammation that can manifest as lymphadenopathy as well. Recommended use of night mouth guard. Plan During our discussion, I addressed the benign status of the patient's neck swelling, likely associated with known allergies or TMJ due to clenching. M anagement involved substituting with fexofenadine to test effectiveness over cetirizine and prescribing Astelin due to sensitivity concerns with Flonase. I suggested obtaining a mouth guard to aid TMJ symptoms at night. For gastrointestinal issues, her upcoming visit with a utility arborist will help assess ongoing abdominal discomfort, possibly linked to scar tissue. Her recent ultrasound indicating a fatty liver and absent gallbladder did not require emergent action. The collaborative approach integrated reassuring descriptions of findings and reiterated keeping abreast of health management through patient health portal use. Follow-up appointments were confirmed for seamless continued care. This note was constructed using voice recognition software. While every effort has been made to ensure accuracy and natural gas basis trader, still areas may have been included sometimes these areas may affect the content or meeting of the given symptoms. Total time spent caring for the patient today was 30 minutes. This includes time spent before the visit reviewing the chart, time spent during the visit, and time spent after the visit and documentation. Patient was informed and verbally consented to the use of an ambient scribe for clinic note documentation during this visit. Orders: Orders Hemoglobin A1c 03/13/25 R73.9 - Hyperglycemia, unspecified Referrals Speech and Hearing Referral H91.90 - Unspecified hearing loss, unspecified ear Medications: New fexofenadine (Allergy Relief (fexofenadine)) 180 mg PO DAILY 30 tabs 0RF azelastine administer into each nostril 1 spray intranasal BID 30 mL 0RF
[2025-03-13 15:37] VITALS: BP 102/56; PULSE 98; O2SAT 95; BMI 42.9
--- OUTSIDE RECORDS SUMMARY | 2025-03-13 16:57 | XMS_ITS | Patient Health Record ---
Author Organization [facility] Address [address] [place] [address] Care Team Providers Care Self Sealing Fuel Tank Repairer Name Role Phone Obi KAY, Pallavi Domingo Primary Care Provider Un available AlejandraJa marionen Unavailable [phone] Allergies Allergen (clinical drug ingredient) Drug/Non Drug Allergy documented on EMR Reaction Allergy Type Onset Date Status enviromental allergi es (uncoded) Unknown Allergy Active Reason For Referral No Information Medications Medication SIG (Take, Route, Frequency, Duration) Notes Start Date End Date Status Nightsplint . . . AFO - L1930 for . Active Walking Boot/Pneumatic As directed Wear Daily for Until further notice 04/26/2018 Active Physical Therapy . . . 2-3x/week for 3- 4 weeks 04/26/2018 Active Diclofenac Sodium 2 grams Transdermal Active Nabumetone 750 MG Orally Ac tive oxyCODONE HCl 5/325mg Active Nortriptyline HCl 10 MG Orally Active Social History Tobacco Use: Social History Observation Description Date Details (start date - stop date) Former Smoker NA - NA Tobacco Use/Smoking Question Answer Notes Are you a: former smoker How long has it been since you last smoked? < 1 month Additional Findings: Tobacco Non-User Current no n-smoker Alcohol Screen Question Answer Notes Did you have a drink containing alcohol in the p ast year? Yes Points 0 Interpretation Negative Tobacco use other than smoking: Question Answer Notes Are you an other tobacco user? No Plan Of Treatment Pending Test Test Name Order Date X ray : Foot, left 3V 04/26/2018 Insurance Providers Payer Name Payer Address Payer Phone Subscriber Number Group Number Insured Name Patient Relationship to Insured Coverage Start Date Coverage End Date [place] [address] [place] [phone] [id number] Eloise Fenton Self - patient is the insured Medical (General) History Medical History History ICD Code Back,Hip,and Knee pain Chicken pox chronic sinusitis Surgical History Surgery Date(Month/Year) shoulder surgery 01/15/17 Eustachian Tuboplasty nasal surgery 1999
== END 2025-03-13 16:33 | disposition home or self-care (01) ==
LOC: HO.HMCH 15:36
PROVIDERS: PCP Internal Medicine
DX: H91.90 Unspecified hearing loss, unspecified ear (principal); R22.0 Localized swelling, mass and lump, head; R10.11 Right upper quadrant pain; J30.2 Other seasonal allergic rhinitis; M26.629 Arthralgia of temporomandibular joint, unspecified side

== ENCOUNTER → 2025-03-13 15:35 | Outpatient (BNVA) | payer OTHER, SELFPAY | PROVIDERS: PCP Internal Medicine | DX: I10 Essential (primary) hypertension (principal); E78.00 Pure hypercholesterolemia, unspecified; F41.9 Anxiety disorder, unspecified; G89.29 Other chronic pain; K21.9 Gastro-esophageal reflux disease without esophagitis; H93.13 Tinnitus, bilateral; H91.90 Unspecified hearing loss, unspecified ear; R22.0 Localized swelling, mass and lump, head; R10.11 Right upper quadrant pain; J30.2 Other seasonal allergic rhinitis; M26.629 Arthralgia of temporomandibular joint, unspecified side | CPT/HCPCS: 96127; 99212 ==

== ENCOUNTER 2025-04-12 12:31 | Outpatient (REF) | payer OTHER, SELFPAY ==
--- OUTSIDE RECORDS SUMMARY | 2025-04-12 12:46 | XMS_ITS | Patient Health Record ---
Author Organization [facility] Address [address] [place] [address] Care Team Providers Care Welding Equipment Repairer Name Role Phone Obi KAY, Pallavi Domingo Primary Care Provider Un available AlejandraJa marionen Unavailable [phone] Allergies Allergen (clinical drug ingredient) Drug/Non Drug Allergy documented on EMR Reaction Allergy Type Onset Date Status enviromental allergi es (uncoded) Unknown Allergy Active Reason For Referral No Information Medications Medication SIG (Take, Route, Frequency, Duration) Notes Start Date End Date Status Nightsplint . . . AFO - L1930; Dur ation: . Active Walking Boot/Pneumatic As directed Wear Daily; Duration: Until further notice 04/26/2018 Active Physical Therapy . . . 2-3x/week; Durat ion: 3-4 weeks 04/26/2018 Active Diclofenac Sodium 2 grams [...] Insured Coverage Start Date Coverage End Date [place] [address] [place] [phone] [id number] Eloise Fenton Self - patient is the insured Medical (General) History Medical History History ICD Code Back,Hip,and Knee pain Chicken pox chronic sinusitis Surgical History Surgery Date(Month/Year) shoulder surgery 01/15/17 Eustachian Tuboplasty nasal surgery 1999
== END 2025-04-12 12:32 | disposition home or self-care (01) ==
LOC: HO.SH 12:31
DX: Z01.118 Encounter for examination of ears and hearing with other abnormal findings (principal); H90.3 Sensorineural hearing loss, bilateral
CPT/HCPCS: 92557; 92567

== ENCOUNTER 2025-04-19 11:52 | Outpatient (AMB) | payer OTHER, SELFPAY ==
--- NOTE | 2025-04-19 11:52 | A.OFFVIS_ITS ---
Intake Visit Reasons: f/u Intake Note: Pt presents as a telehealth visit today for a follow up. Allergies cephalexin Allergy (Severe, Verified 04/19/25 11:53) Anaphylaxis Sulfa (Sulfonamide Antibiotics) Allergy (Intermediate, Verified 04/19/25 11:53) hives sulfamethoxazole (From BACTRIM) Allergy (Intermediate, Verified 04/19/25 11:53) RASH trimethoprim (From BACTRIM) Allergy (Intermediate, Verified 04/19/25 11:53) RASH Medication List - Last Reconciled 04/19/25 by Ashwin Juarez MD acetaminophen 650 mg (2 x 325 mg) PO QID PRN 30 days amlodipine (Norvasc) 10 mg PO DAILY 30 days atorvastatin 10 mg PO BEDTIME 90 days azelastine 1 spray intranasal BID cetirizine 10 mg PO DAILY PRN cyclobenzaprine 5 mg PO TID PRN escitalopram oxalate 20 mg PO DAILY 90 days fexofenadine (Allergy Relief (fexofenadine)) 180 mg PO DAILY hydroxyzine HCl 25 mg PO TID PRN linaclotide (Linzess) 290 mcg (2 x 145 mcg) PO QAM 60 days losartan 50 mg PO DAILY 90 days lubiprostone (Amitiza) 24 mcg PO DAILY 90 days omeprazole 20 mg PO DAILY 90 days ondansetron 4 mg PO Q8H PRN 15 days oxycodone 10 mg PO Q8H PRN 28 days polyethylene glycol 3350 (Miralax) 17 grams PO DAILY 1 day sennosides-docusate sodium 8.6-50 mg (Stool Softener-Stimulant Laxative) 1 cap PO BEDTIME HPI HPI f/u: Details: Telemedicine visit for this 54 YF for FU after an episode of right sided abdominal pain. [place] was [place] [facility] [place] with right-sided abdominal pain diagnosed with ischemic colitis. She had recurrent pain in May and June and was treated with p.o. Augmentin for 10 days with resolution. TODAY'S VISIT: Clinic visit converted to telemedicine visit since pt is sick Feels sick most of the time I get this massive pain which starts under the right breast and radiates to the bottom of the rib cage Pain started in Feb, 2025, is constant and sore to touch Pain is not affected by food intake, gets worse on twisting her waist and taking a deep breath and sitting and bending the body Denies fever, chills or sweating. Notes swelling and a lump on the right side. Has no insurance and not able to take her usual medication. Once a month she develops obstipation and then gets the runs with resolution. Complains of nausea and is feeling sick to the stomach. PAST VISITS: Patient cc: acid reflex and constipation. Denies any other GI issues. Continues to have constipation. No BM x 3-4 weeks and then multiple BMs over 2-3 BM Last BM was 1-2 weeks ago - initial BM is hard and pt has to strain to have a BM Patient yearly follow up for Chronic RUQ pain. Notes significant improvement in RUQ pain after Lap Jenelle Patient cc: Nauseas on and off, abdominal pain with bloating, acid reflex wth burning sensation on and off, Constipation and some difficulty swallowing. Complains of constipation - no BMs for a month. Had a small BM yesterday - took an hour and a half. Patient cc: abdominal upset, RLQ pain and bloating, heartburn with burning sensation on her throat, constipation and some swallowing problems. Also patient needed 90 days supplies for her Omeprazole due the insurance. Complains of abdominal pain daily. Takes Ondansetron which helps relieve the pain partially. Has a BM once every 3 weeks with passage of hard stools. Has been feeling better for the past few weeks and notes some improvement in her appetite. For the past 2 weeks she has been eating regular diet (bland) without post prandial pain Can have abdominal pain if she eats spicy food Pain was similar to pain during hospitalization and gets worse after eating. Denies radiation to the back or shoulder. Notes diarrhea when she has episodes of abdominal pain with 3-4 loose stools. Intermittent dysphagia to solids and liquids - drinks water to help it go down. Denies episodes of regurgitation. Colonoscopy results reviewed. Did not feel hungry for a few days after the colonoscopy. Feels normal now Patient denies symptoms of heartburn, dysphagia, nausea, vomiting, change in appetite or weight. Denies recent change in bowel habits, constipation, diarrhea, black stools or rectal bleeding. Patient denies major cardiac or pulmonary problems, loud snoring or sleep apnea Denies problems with anesthesia in the past. Denies being on chronic anticoagulation. Patient denies known family history of colon polyps, colon cancer or other GI malignancies. 52 YF with osteoarthritis complicated by chronic pain, mood disorder, obesity, hld, seen [place] [facility] [place] with back and right sided abd pain.?Pt gives a hx of intermittent back pain for which she takes oxycodonePt reports she started having back pain yesterday (03/21/23) around noon which later migrated to right abdomen. She used a heating pad and took Flexeril without relief. Pt reports the pain as constant (with intermittent waves of increased pain), stabbing in character and > than 10/10 in intensity Pt admits to associated nausea and vomiting and has been unable to eat or drink anything without gagging except ice chips and sips of fluids. Drinking fluids can make the pain worse. Patient denies fever or chills.? Pt had 2 soft to loose BMs yesterday (greenish in color) and denies having a BM today. She admits to passing gas without improvement in pain Pt denies having similar pain in the past. Pt denies any cardiac or pulmonary problems, loud snoring or sleep apnea. Patient denies smoking and admits to drinking off and on when she is in distress. 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 Pt has a daughter, an adopted daughter and 2 step children. Patient's mom has kidney stones, gallbladder disease, coronary artery disease and history of colon polyps.? Patient denies known family history of IBD or GI malignancy. ? Labs in the ED showed? leukocytosis with left shift, Normal lipa IMAGING STUDIES: 12/10/23 HIDA SCAN SHOWED: There is very minimal gallbladder emptying during the sincalide infusion. At the end of the study the gallbladder shows marked retention of activity at 30 minutes following initiation of the sincalide infusion. There is almost complete clearance of activity from the liver at this time and diffuse small bowel activity Is well visualized. The calculated gallbladder ejection fraction is 4% (normal gallbladder ejection fraction is greater than 35%). IMPRESSION: 1. Visualization of the gallbladder is evidence of a patent cystic ductand strong evidence against the diagnosis of acute cholecystitis. The common bile duct is patent. Liver function appears normal. 2. Poor gallbladder emptying and a low gallbladder ejection fractionare evidence of impaired gallbladder contractility and most likely due to chronic cholecystitis. 07/[address] SCAN SHOWED: 1. Resolution of ascending colitis. 2. Hepatic steatosis. 3. Cholelithiasis. 4. Stable small renal cysts. ENDOSCOPIC STUDIES: 11/12/23 EGD SHOWED: Esophagus: GE junction at 36 cms. No esophagitis or Stockton's. Stomach: Patchy erythema in the antrum. Biopsies were obtained to check for Helicobacter pylori. Grade 2 flap valve on retroflexed examination of the cardia. Duodenum: Normal bulb and descending duodenum. Biopsies were obtained from 3rd part of the duodenum to check for celiac sprue Impression and Post Procedure Diagnosis: Endoscopy Findings: STOMACH: Mild antral gastritis - biopsies obtained to check for Helicobacter pylori DUODENUM: Normal - biopsies were obtained to check for celiac sprue BIOPSIES SHOWED: A. Small bowel, biopsy: Small-bowel/duodenal mucosa with preserved villi and no specific change. B. Gastric antrum, biopsy: Gastric antral mucosa with mild reactive changes, congestion, and focal minimal chronic inactive inflammation; negative for H pylori, intestinal metaplasia and dysplasia 04/12/23 COLONOSCOPY SHOWED:One medium sized polyp removed Focal area of edematous folds with ulcerations covered with exudate in the mid AC - likely resolving ischemic colitis and less likely IBD. Linear erosions with a few aphthoid ulcers in the distal rectum - biopsies were obtained to check for proctitis. Mild diverticulosis seen in the sigmoid colon Moderate hemorrhoids on retroflexed exam. Plan: Repeat Colonoscopy interval based on path results - in 3-5 years if po lyps are adenomatous and 10 years if polyps are hyperplastic. Above findings were reviewed with the patient and colon polyps and ischemic colitis handouts were given in the discharge area Pt continues to experience postprandial abdominal cramps and bloating - though her symptoms are gradually improving. BIOPSIES SHOWED: A. Colon, right, biopsy: Colonic mucosa with marked regenerative crypt changes, increased eosinophils, minimal active inflammation and marked reactive epithelial changes without a basal lymphoplasmacytic infiltrate or granulomas (see comment). B. Colon, sigmoid, polyp: Tubular adenoma; negative for high-grade dysplasia and carcinoma. C. Colon, rectum, biopsy: Colonic mucosa with minor crypt distortion, lymphoid aggregate, and congestion; negative for colitis/proctitis, granulomas and dysplasia. Comment: (A): Appearances suggest a healing/resolving mucosal injury rather than a chronic colitis; clinical correlation and follow-up warranted [facility] Medical History GERD (gastroesophageal reflux disease) Benign essential hypertension Sacroiliitis Pure hypercholesterolemia Obesity (BMI 30-39.9) Hyperglycemia Allergic rhinitis Left leg pain Frequent headaches Lesion of femoral nerve, left lower limb Environmental allergies Hx of iron deficiency anemia Back pain Restless leg syndrome Medial epicondylitis of right elbow Right elbow pain Lumbar degenerative disc disease Surgical History Hx laparoscopic cholecystectomy (01/27/24) S/P placement of nerve stimulator History of esophagogastroduodenoscopy (EGD) Hx of colonoscopy Hx of knee surgery S/p bilateral myringotomy with tube placement History of nasal surgery Hx of shoulder surgery Family History Mother Hypertension Father No problems noted. 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, 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) Hearing needs: No Vision needs: Yes (Glasses) Review of Systems Const All systems reviewed & are unremarkable except as noted in HPI and below Telehealth Telehealth Telehealth Platform: Telephone Location of provider rendering services: practice address Location of patient: address on file Patient Identification confirmed using: Name, : Yes Telehealth method: voice only Patient verbally consented to treatment: Yes Patient verbally consented to billing insurance company: Yes Patient informed of any privacy concerns related to visit: Yes Minutes spent on Phone/Video with Pt.: 25 Assessment & Plan Assessment & Plan (1) Colon cancer screening: Comment: 04/2023 Colonoscopy showed resolving focal colitis in the ascending colon and one medium sized polyp was removed. Repeat colonoscopy is advised in 3 years - due 04/2026 Code(s): Z12.11 - Encounter for screening for malignant neoplasm of colon Category: Medical (2) History of ischemic colitis: Code(s): Z87.19 - Personal history of other diseases of the digestive system Category: Medical (3) Chronic constipation: Code(s): K59.09 - Other constipation Category: Medical (4) GERD (gastroesophageal reflux disease): Code(s): K21.9 - Gastro-esophageal reflux disease without esophagitis Category: Medical Qualifiers: Esophagitis presence: without esophagitis Qualified Code(s): K21.9 - Gastro-esophageal reflux disease without esophagitis (5) Dysphagia, pharyngoesophageal phase: Code(s): R13.14 - Dysphagia, pharyngoesophageal phase Category: Surgical (6) Biliary dyskinesia: Code(s): K82.8 - Other specified diseases of gallbladder Category: Surgical (7) Obstipation: Code(s): K59.00 - Constipation, unspecified Category: Medical Plan YF with osteoarthritis complicated by chronic pain, mood disorder, obesity, hld, [place] [facility] [place] with back and right sided abd pain.? Pt reports the pain as constant (with intermittent waves of increased pain), stabbing in character and > than 10/10 in intensity Pt admits to associated nausea and vomiting and has been unable to eat or drink anything without gagging except ice chips and sips of fluids. Drinking fluids can make the pain worse. Patient denies fever or chills.? Pt had 2 soft to loose BMs yesterday (greenish in color) and denies having a BM today. She admits to passing gas without improvement in pain Abd CT scan showed?Marked mural thickening and pericolonic inflammatory changes are noted involving the right-sided colon starting from the level of the cecum to the hepatic flexure without evidence of any bowel obstruction, perforation or abscess formation. There are few shotty adjacent mesenteric lymph nodes noted. 12/16/23 HIDA scan showed GB EF of 4%. Pt has chronic RUQ pain with local tenderness Patient had a Lap Jenelle on 01/27/[address] Cardona. 05/04/24 Pt complains of constipation - no BM x 1 month (likely related to narcotics) pt was advised to: 1. Take 2 fleet enemas 2. Go on a liquid diet x 24 hrs and take Miralax prep to clean out the colon 3. Increase Linzess to 290 mcg daily 06/08/24 Continues to have constipation. No BM x 3-4 weeks and then multiple BMs over 2-3 BM Last BM was 1-2 weeks ago - initial BM is hard and pt has to strain to have a BM Patient advised to switch from Linzess to Amitiza and take Fleet enema p.r.n. for constipation 04/19/25 Complains of RUQ pain which is not affected by food intake, gets worse on twisting her waist and taking a deep breath and sitting and bending the body Thinks pain is worse when she is constipated. Pain can be musculoskeletal pain from abdominal wall versus related to obstipation Advised a trail of local heal and topical analgesics. Had to decrease Linzess to 1 tab daily (instead of two) due to insurance coverage Advised to increase Miralax to twice daily. FU in 6 weeks Medications: New polyethylene glycol 3350 (Miralax) 17 grams PO BID 3,060 grams 1RF 90 days K59.00 - Constipation, unspecified Changed From linaclotide (Linzess) 290 mcg (2 x 145 mcg) PO QAM 60 days 120 caps 2RF K59.09 - Other constipation To linaclotide (Linzess) 145 mcg PO QAM 90 caps 1RF 90 days K59.09 - Other constipation Discontinued lubiprostone (Amitiza) Discontinued Reason: Insurance Denied 24 mcg PO DAILY 90 days 90 caps 1RF K59.00 - Constipation, unspecified Coding Level of Care Code Tele Est Pt Level 4 (89938) Diagnoses Colon cancer screening Z12.11 History of ischemic colitis Z87.19 Chronic constipation K59.09 Gastroesophageal reflux disease without esophagitis K21.9 Esophagitis presence: without esophagitis Dysphagia, pharyngoesophageal phase R13.14 Biliary dyskinesia K82.8 Obstipation K59.00 Time Spent (min) 25
--- OUTSIDE RECORDS SUMMARY | 2025-04-19 12:22 | XMS_ITS | Patient Health Record ---
Author Organization [facility] Address [address] [place] [address] Care Team Providers Care [place] Police Name Role Phone Obi KAY, Pallavi Domingo Primary Care Provider Un available AlejandraJa marionen Unavailable [phone] Allergies Allergen (clinical drug ingredient) Drug/Non Drug [...] Insured Coverage Start Date Coverage End Date [place] [id number] [place] [phone] [id number] Eloise Fenton Self - patient is the insured Medical (General) History Medical History History ICD Code Back,Hip,and Knee pain Chicken pox chronic sinusitis Surgical History Surgery Date(Month/Year) shoulder surgery 01/15/17 Eustachian Tuboplasty nasal surgery 1999
== END 2025-04-19 17:04 | disposition home or self-care (01) ==
LOC: HO.HGI 11:52
PROVIDERS: PCP Internal Medicine; Visit Provider Internal Medicine Gastroenterology
DX: Z01.818 Encounter for other preprocedural examination (principal); K59.09 Other constipation; K21.9 Gastro-esophageal reflux disease without esophagitis; Z12.11 Encounter for screening for malignant neoplasm of colon; R13.14 Dysphagia, pharyngoesophageal phase; K82.8 Other specified diseases of gallbladder; K59.00 Constipation, unspecified; Z87.19 Personal history of other diseases of the digestive system
CPT/HCPCS: 99214

== ENCOUNTER 2025-06-05 11:07 | Outpatient (REF) | payer OTHER, SELFPAY ==
--- OUTSIDE RECORDS SUMMARY | 2025-06-05 12:00 | XMS_ITS | Patient Health Record ---
Author Organization [facility] Address [address] [place] [address] Care Team Providers Care Cigar Binder Name Role Phone Obi KAY, Pallavi Domingo Primary Care Provider Un available AlejandraJa marionen Unavailable [phone] Allergies Allergen (clinical drug ingredient) Drug/Non Drug [...] Insured Coverage Start Date Coverage End Date [place] [id number] [place] [phone] [id number] Eloise Fenton Self - patient is the insured Medical (General) History Medical History History ICD Code Back,Hip,and Knee pain Chicken pox chronic sinusitis Surgical History Surgery Date(Month/Year) shoulder surgery 01/15/17 Eustachian Tuboplasty nasal surgery 1999
[2025-06-05 13:07] LABS: MANUAL DIFF FLAG NO
[2025-06-05 13:23] LABS: Hematocrit 36.6 % (37.0-47.0); Hemoglobin 12.5 g/dl (12.0-16.0); Imm Gran Abs Auto 0.02 X10*3/uL (0.00-0.03); Imm Gran Pct Auto 0.3 % (0.0-0.4); Lymphocytes Absolute Auto 2.1 X10*3/uL (1.2-4.9); Mean Corpuscular HGB Conc 34.2 g/dl (31.0-35.0); Mean Corpuscular Hemoglobin 29.2 pg (27.0-33.0); Mean Corpuscular Volume 85.5 fL (80.0-98.0); NRBC Abs Auto 0.000 X10*3/uL (0.0-0.012); NRBC Pct Auto 0.0 /100WBC (0.0-0.2); Platelet Count 282 X10*3/uL (160-400); Red Blood Count 4.28 X10*6/uL (4.20-5.50); White Blood Count 6.8 X10*3/uL (4.8-10.8)
[2025-06-05 13:47] LABS: Appearance Urine Clear; Glucose Urine UA Negative (Negative); PH 7.5 (5.0-9.0); Specific Gravity - Urine 1.015 (1.005-1.025); UMIC TRIGGER UACC YES
[2025-06-05 13:50] LABS: Alanine Aminotransferase 33 U/L (0-31); Albumin Level 4.2 g/dL (3.5-5.0); Alkaline Phosphatase 209 U/L (39-117); Anion Gap 15 (12-20); Aspartate Amino Transferase 35 U/L (5-31); Blood Urea Nitrogen 9 mg/dL (9-16); Calcium 9.3 mg/dL (8.4-10.2); Carbon Dioxide 28 mmol/L (22-29); Chloride 101 mmol/L (96-108); Cholesterol 171 mg/dL (<200); Estimated Glomerular Filt Rate > 60; HDL Cholesterol 48 mg/dL (>40); Potassium 3.8 mmol/L (3.3-5.1); Sodium 140 mmol/L (135-145); Total Protein 7.8 g/dL (6.5-8.0); Triglycerides 201 mg/dL (<150)
[2025-06-05 13:52] LABS: UACC Culture Trigger YES
== END 2025-06-05 11:08 | disposition home or self-care (01) ==
LOC: HO.10HDL 11:07
PROVIDERS: Visit Provider Internal Medicine
DX: R30.0 Dysuria (principal); E78.00 Pure hypercholesterolemia, unspecified; D64.9 Anemia, unspecified; M51.360 Other intervertebral disc degeneration, lumbar region with discogenic back pain only; M47.812 Spondylosis without myelopathy or radiculopathy, cervical region; G57.22 Lesion of femoral nerve, left lower limb; K59.09 Other constipation; I10 Essential (primary) hypertension; K21.9 Gastro-esophageal reflux disease without esophagitis; J30.9 Allergic rhinitis, unspecified; F41.9 Anxiety disorder, unspecified; E66.9 Obesity, unspecified; Z68.41 Body mass index [BMI] 40.0-44.9, adult; Z71.3 Dietary counseling and surveillance
CPT/HCPCS: 36415; 80053; 80061; 81001; 84443; 85025; 87086; 96127; 99212

== ENCOUNTER 2025-06-05 13:19 | Outpatient (AMB) | payer OTHER, SELFPAY ==
[2025-06-05 13:24] VITALS: BP 136/78; PULSE 113; TEMP 36.1; O2SAT 96; BMI 42.6
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
== END 2025-06-05 14:09 | disposition home or self-care (01) ==
LOC: HO.HMCH 13:20
PROVIDERS: Visit Provider Internal Medicine
DX: M51.360 Other intervertebral disc degeneration, lumbar region with discogenic back pain only (principal); E66.9 Obesity, unspecified; M47.812 Spondylosis without myelopathy or radiculopathy, cervical region; Z68.41 Body mass index [BMI] 40.0-44.9, adult; G57.22 Lesion of femoral nerve, left lower limb; K59.09 Other constipation; I10 Essential (primary) hypertension; E78.00 Pure hypercholesterolemia, unspecified; K21.9 Gastro-esophageal reflux disease without esophagitis; J30.9 Allergic rhinitis, unspecified; F41.9 Anxiety disorder, unspecified

== ENCOUNTER 2025-06-07 13:14 | Outpatient (AMB) | payer OTHER, SELFPAY ==
--- NOTE | 2025-06-07 13:29 | A.OFFVIS_ITS ---
Vital Signs 06/07/25 13:31 Height 5 ft 4 in Weight 248 lb BMI 42.6 BP 109/58 L Blood Pressure Location Lt brachial Position Sitting Pulse 98 Pulse Oximetry (%) 98 Oxygen Delivery Method Room Air Intake Visit Reasons: follow up Intake Note: Patient follow up for Biliary dyskinesia Patient denies any GI issues for today visit. Vice President Payer Required: No Accompanied by: Self / Same As Patient Allergies cephalexin Allergy (Severe, Verified 06/07/25 13:28) Anaphylaxis Sulfa (Sulfonamide Antibiotics) Allergy (Intermediate, Verified 06/07/25 13:28) hives sulfamethoxazole (From BACTRIM) Allergy (Intermediate, Verified 06/07/25 13:28) RASH trimethoprim (From BACTRIM) Allergy (Intermediate, Verified 06/07/25 13:28) RASH Medication List - Last Reconciled 06/07/25 by Ashwin Juarez MD acetaminophen 650 mg (2 x 325 mg) PO QID PRN 30 days amlodipine (Norvasc) 10 mg PO DAILY 30 days atorvastatin 10 mg PO BEDTIME 90 days azelastine 1 spray intranasal BID cyclobenzaprine 5 mg PO TID PRN escitalopram oxalate 20 mg PO DAILY 90 days fexofenadine (Allergy Relief (fexofenadine)) 180 mg PO DAILY hydroxyzine HCl 25 mg PO TID PRN linaclotide (Linzess) 145 mcg PO QAM 90 days losartan 50 mg PO DAILY 90 days omeprazole 20 mg PO DAILY 90 days ondansetron 4 mg PO Q8H PRN 15 days oxycodone 10 mg PO Q8H PRN 28 days polyethylene glycol 3350 (Miralax) 17 grams PO BID 90 days sennosides-docusate sodium 8.6-50 mg (Stool Softener-Stimulant Laxative) 1 cap PO BEDTIME HPI HPI follow up: Details: GI clinic visit for this 54 YF for FU after an episode of right sided abdominal pain. Patient was hospitalized at [facility] in March 2023 with right-sided abdominal pain diagnosed with ischemic colitis. She had recurrent pain in May and June and was treated with p.o. Augmentin for 10 days with resolution. TODAY'S VISIT: RUQ has improved - noted an episode 3 days ago Used heating pad which helped Taking probiotics which has helped. BMs are more regular - daily Taking Linzess daily and Miralax prn Sometimes no BM for 1-2 days - takes Miralax with good results Sometimes notes a lump in the RUQ Had an episode of discomfort in the bladder which improved after she had a BM Pt is leaving for [place] since her Dad is scheduled for surgery for throat cancer PAST VISITS: Clinic visit converted to telemedicine visit since pt is sick Feels sick most of the time I get this massive pain which starts under the right breast and radiates to the bottom of the rib cage Pain started in Feb, 2025, is constant and sore to touch Pain is not affected by food intake, gets worse on twisting her waist and taking a deep breath and sitting and bending the body Denies fever, chills or sweating. Notes swelling and a lump on the right side. Has no insurance and not able to take her usual medication. Once a month she develops obstipation and then gets the runs with resolution. Complains of nausea and is feeling sick to the stomach. Patient cc: acid reflex and constipation. Denies any other GI issues. Continues to have constipation. No BM x 3-4 weeks and then multiple BMs over 2-3 BM Last BM was 1-2 weeks ago - initial BM is hard and pt has to strain to have a BM Patient yearly follow up for Chronic RUQ pain. Notes significant improvement in RUQ pain after Lap Jenelle Patient cc: Nauseas on and off, abdominal pain with bloating, acid reflex wth burning sensation on and off, Constipation and some difficulty swallowing. Complains of constipation - no BMs for a month. Had a small BM yesterday - took an hour and a half. Patient cc: abdominal upset, RLQ pain and bloating, heartburn with burning sensation on her throat, constipation and some swallowing problems. Also patient needed 90 days supplies for her Omeprazole due the insurance. Complains of abdominal pain daily. Takes Ondansetron which helps relieve the pain partially. Has a BM once every 3 weeks with passage of hard stools. Has been feeling better for the past few weeks and notes some improvement in her appetite. For the past 2 weeks she has been eating regular diet (bland) without post prandial pain Can have abdominal pain if she eats spicy food Pain was similar to pain during hospitalization and gets worse after eating. Denies radiation to the back or shoulder. Notes diarrhea when she has episodes of abdominal pain with 3-4 loose stools. Intermittent dysphagia to solids and liquids - drinks water to help it go down. Denies episodes of regurgitation. Colonoscopy results reviewed. Did not feel hungry for a few days after the colonoscopy. Feels normal now Patient denies symptoms of heartburn, dysphagia, nausea, vomiting, change in appetite or weight. Denies recent change in bowel habits, constipation, diarrhea, black stools or rectal bleeding. Patient denies major cardiac or pulmonary problems, loud snoring or sleep apnea Denies problems with anesthesia in the past. Denies being on chronic anticoagulation. Patient denies known family history of colon polyps, colon cancer or other GI malignancies. 52 YF with osteoarthritis complicated by chronic pain, mood disorder, obesity, hld, seen at [facility] on 03/22/23 with back and right sided abd pain.?Pt gives a hx of intermittent back pain for which she takes oxycodonePt reports she started having back pain yesterday (03/21/23) around noon which later migrated to right abdomen. She used a heating pad and took Flexeril without relief. Pt reports the pain as constant (with intermittent waves of increased pain), stabbing in character and > than 10/10 in intensity Pt admits to associated nausea and vomiting and has been unable to eat or drink anything without gagging except ice chips and sips of fluids. Drinking fluids can make the pain worse. Patient denies fever or chills.? Pt had 2 soft to loose BMs yesterday (greenish in color) and denies having a BM today. She admits to passing gas without improvement in pain Pt denies having similar pain in the past. Pt denies any cardiac or pulmonary problems, loud snoring or sleep apnea. Patient denies smoking and admits to drinking off and on when she is in distress. 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 Pt has a daughter, an adopted daughter and 2 step children. Patient's mom has kidney stones, gallbladder disease, coronary artery disease and history of colon polyps.? Patient denies known family history of IBD or GI malignancy. ? Labs in the ED showed? leukocytosis with left shift, Normal lipa IMAGING STUDIES: 12/10/23 HIDA SCAN SHOWED: There is very minimal gallbladder emptying during the sincalide infusion. At the end of the study the gallbladder shows marked retention of activity at 30 minutes following initiation of the sincalide infusion. There is almost complete clearance of activity from the liver at this time and diffuse small bowel activity Is well visualized. The calculated gallbladder ejection fraction is 4% (normal gallbladder ejection fraction is greater than 35%). IMPRESSION: 1. Visualization of the gallbladder is evidence of a patent cystic ductand strong evidence against the diagnosis of acute cholecystitis. The common bile duct is patent. Liver function appears normal. 2. Poor gallbladder emptying and a low gallbladder ejection fractionare evidence of impaired gallbladder contractility and most likely due to chronic cholecystitis. 07/[address] SCAN SHOWED: 1. Resolution of ascending colitis. 2. Hepatic steatosis. 3. Cholelithiasis. 4. Stable small renal cysts. ENDOSCOPIC STUDIES: 11/12/23 EGD SHOWED: Esophagus: GE junction at 36 cms. No esophagitis or Stockton's. Stomach: Patchy erythema in the antrum. Biopsies were obtained to check for Helicobacter pylori. Grade 2 flap valve on retroflexed examination of the cardia. Duodenum: Normal bulb and descending duodenum. Biopsies were obtained from 3rd part of the duodenum to check for celiac sprue Impression and Post Procedure Diagnosis: Endoscopy Findings: STOMACH: Mild antral gastritis - biopsies obtained to check for Helicobacter pylori DUODENUM: Normal - biopsies were obtained to check for celiac sprue BIOPSIES SHOWED: A. Small bowel, biopsy: Small-bowel/duodenal mucosa with preserved villi and no specific change. B. Gastric antrum, biopsy: Gastric antral mucosa with mild reactive changes, congestion, and focal minimal chronic inactive inflammation; negative for H pylori, intestinal metaplasia and dysplasia 04/12/23 COLONOSCOPY SHOWED:One medium sized polyp removed Focal area of edematous folds with ulcerations covered with exudate in the mid AC - likely resolving ischemic colitis and less likely IBD. Linear erosions with a few aphthoid ulcers in the distal rectum - biopsies were obtained to check for proctitis. Mild diverticulosis seen in the sigmoid colon Moderate hemorrhoids on retroflexed exam. Plan: Repeat Colonoscopy interval based on path results - in 3-5 years if polyps are adenomatous and 10 years if polyps are hyperplastic. Above findings were reviewed with the patient and colon polyps and ischemic colitis handouts were given in the discharge area Pt continues to experience postprandial abdominal cramps and bloating - though her symptoms are gradually improving. BIOPSIES SHOWED: A. Colon, right, biopsy: Colonic mucosa with marked regenerative crypt changes, increased eosinophils, minimal active inflammation and marked reactive epithelial changes without a basal lymphoplasmacytic infiltrate or granulomas (see comment). B. Colon, sigmoid, polyp: Tubular adenoma; negative for high-grade dysplasia and carcinoma. C. Colon, rectum, biopsy: Colonic mucosa with minor crypt distortion, lymphoid aggregate, and congestion; negative for colitis/proctitis, granulomas and dysplasia. Comment: (A): Appearances suggest a healing/resolving mucosal injury rather than a chronic colitis; clinical correlation and follow-up warrant [facility] Medical History GERD (gastroesophageal reflux disease) Benign essential hypertension Sacroiliitis Pure hypercholesterolemia Obesity (BMI 30-39.9) Hyperglycemia Allergic rhinitis Left leg pain Frequent headaches Lesion of femoral nerve, left lower limb Environmental allergies Hx of iron deficiency anemia Back pain Restless leg syndrome Medial epicondylitis of right elbow Right elbow pain Lumbar degenerative disc disease Surgical History Hx laparoscopic cholecystectomy (01/27/24) S/P placement of nerve stimulator History of esophagogastroduodenoscopy (EGD) Hx of colonoscopy Hx of knee surgery S/p bilateral myringotomy with tube placement History of nasal surgery Hx of shoulder surgery Family History Mother Hypertension Father Heart attack Throat cancer Sister Breast cancer Bone cancer Social History Household Members: Spouse Housing: House Are you a primary medicare sales representative to a significant other at home: No Do you presently have visiting nurse or other home services: Yes Alcohol intake: never Patient Tobacco Use Status: Former Tobacco user Tobacco use type: Cigarette Years Smoked: 10 e-Cigarette/Vaping Use: Currently Using Second Hand Smoke Exposure: No service: No Current occupational status: employed 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, 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) Hearing needs: No Vision needs: Yes (Glasses) Review of Systems Const All systems reviewed & are unremarkable except as noted in HPI and below Physical Exam Vital Signs: Last Vital Signs Pulse 98 06/07/25 13:31 BP 109/58 L 06/07/25 13:31 Pulse Ox 98 06/07/25 13:31 Oxygen Delivery Method Room Air 06/07/25 13:31 BMI result Body Mass Index 42.6 Const General: healthy appearing and no acute distress Nutritional Appearance: obese Orientation/consciousness: patient oriented x3 Limitations: no limitations HEENT Head: Yes normal to inspection Ears: hearing grossly normal bilaterally Eyes Sclerae: sclerae normal Pupils: Equal, round and reactive pupils present Neck Neck: Yes normal visual inspection Chest Chest palpation & inspection: normal inspection of the chest Resp Effort & Inspection: normal respiratory effort Auscultation: clear to auscultation bilaterally Cardio Palpation: normal PMI Rate: regular rate Rhythm: regular rhythm Heart sounds: S1 normal heart sound present, S2 normal heart sound present and no murmurs GI Palpation (GI): Soft to palpation, nontender and No hepatosplenomegaly present Auscultation: normal bowel sounds Rectal Exam - Female: deferred Skin General skin exam: no rashes or lesions noted Neuro General: patient oriented x3, gait normal and moves all extremities Cranial nerves: Yes Equal, round and reactive pupils present Psych Appearance: grossly normal Mental Status: mental status grossly normal Assessment & Plan Assessment & Plan (1) Colon cancer screening: Comment: 04/2023 Colonoscopy showed resolving focal colitis in the ascending colon and one medium sized polyp was removed. Repeat colonoscopy is advised in 3 years - due 04/2026 Code(s): Z12.11 - Encounter for screening for malignant neoplasm of colon Category: Medical (2) History of ischemic colitis: Code(s): Z87.19 - Personal history of other diseases of the digestive system Category: Medical (3) Chronic constipation: Code(s): K59.09 - Other constipation Category: Medical (4) GERD (gastroesophageal reflux disease): Code(s): K21.9 - Gastro-esophageal reflux disease without esophagitis Category: Medical Qualifiers: Esophagitis presence: without esophagitis Qualified Code(s): K21.9 - Gastro-esophageal reflux disease without esophagitis (5) Dysphagia, pharyngoesophageal phase: Code(s): R13.14 - Dysphagia, pharyngoesophageal phase Category: Surgical (6) Chronic RUQ pain: Code(s): R10.11 - Right upper quadrant pain; G89.29 - Other chronic pain Category: Medical (7) Biliary dyskinesia: Code(s): K82.8 - Other specified diseases of gallbladder Category: Surgical (8) Obstipation: Code(s): K59.00 - Constipation, unspecified Category: Medical Plan 54 YF with osteoarthritis complicated by chronic pain, mood disorder, obesity, hyperlipidemia, admitted to [facility] on 03/22/23 with back and right sided abd pain.?Pt reported the pain as constant (with intermittent waves of increased pain), stabbing in character and > than 10/10 in intensity Pt admits to associated nausea and vomiting and has been unable to eat or drink anything without gagging except ice chips and sips of fluids. Drinking fluids can make the pain worse. Patient denies fever or chills.? She admited to passing gas without improvement in pain Abd CT scan showed?Marked mural thickening and pericolonic inflammatory changes are noted involving the right-sided colon starting from the level of the cecum to the hepatic flexure without evidence of any bowel obstruction, perforation or abscess formation. There are few shotty adjacent mesenteric lymph nodes noted. 12/16/23 HIDA scan showed GB EF of 4%. Pt has chronic RUQ pain with local tenderness Patient had a Lap Jenelle on 01/27/[address] Cardona. 05/04/24 Pt complains of constipation - no BM x 1 month (likely related to narcotics) pt was advised to: 1. Take 2 fleet enemas 2. Go on a liquid diet x 24 hrs and take Miralax prep to clean out the colon 3. Increase Linzess to 290 mcg daily 06/08/24 Continues to have constipation. No BM x 3-4 weeks and then multiple BMs over 2-3 days Last BM was 1-2 weeks ago - initial BM is hard and pt has to strain to have a BM Patient advised to switch from Linzess to Amitiza and take Fleet enema p.r.n. for constipation 04/19/25 Complains of RUQ pain which is not affected by food intake, gets worse on twisting her waist and taking a deep breath and sitting and bending the body Thinks pain is worse when she is constipated. Pain can be musculoskeletal pain from abdominal wall versus related to obstipation Advised a trail of local heal and topical analgesics. Had to decrease Linzess to 1 tab daily (instead of two) due to insurance coverage Advised to increase Miralax to twice daily. 06/07/25 Taking Linzess daily and Miralax prn Had an episode of discomfort in the bladder which improved after she had a BM Pt is leaving for [place] since her Dad is scheduled for surgery for throat cancer Pt advised to continue with above bowel program and take Miralax 3-4 times a day once a month FU in 4 months Coding Level of Care Code Est Pt Level 4 (28240) Diagnoses Colon cancer screening Z12.11 History of ischemic colitis Z87.19 Chronic constipation K59.09 Gastroesophageal reflux disease without esophagitis K21.9 Esophagitis presence: without esophagitis Dysphagia, pharyngoesophageal phase R13.14 Chronic RUQ pain R10.11; G89.29 Biliary dyskinesia K82.8 Obstipation K59.00 Time Spent (min) 21
[2025-06-07 13:31] VITALS: BP 109/58; PULSE 98; O2SAT 98; BMI 42.6
--- OUTSIDE RECORDS SUMMARY | 2025-06-07 13:50 | XMS_ITS | Patient Health Record ---
Author Organization [facility] Address [address] [place] [address] Care Team Providers Care Paper Cone Grader Name Role Phone Obi KAY, Pallavi Domingo Primary Care Provider Un available AlejandraJa marionen Unavailable [phone] Allergies Allergen (clinical drug ingredient) Drug/Non Drug [...] Insured Coverage Start Date Coverage End Date [place] [id number] [place] [phone] [id number] Eloise Fenton Self - patient is the insured Medical (General) History Medical History History ICD Code Back,Hip,and Knee pain Chicken pox chronic sinusitis Surgical History Surgery Date(Month/Year) shoulder surgery 01/15/17 Eustachian Tuboplasty nasal surgery 1999
== END 2025-06-07 14:10 | disposition home or self-care (01) ==
LOC: HO.HGI 13:15
PROVIDERS: PCP Internal Medicine; Visit Provider Internal Medicine Gastroenterology
DX: K59.09 Other constipation (principal); K21.9 Gastro-esophageal reflux disease without esophagitis; R13.14 Dysphagia, pharyngoesophageal phase; Z87.19 Personal history of other diseases of the digestive system; R10.11 Right upper quadrant pain; G89.29 Other chronic pain; K82.8 Other specified diseases of gallbladder
CPT/HCPCS: 99214

== ENCOUNTER → 2025-06-07 13:14 | Outpatient (BNVA) | payer OTHER, SELFPAY | PROVIDERS: PCP Internal Medicine; Visit Provider Internal Medicine Gastroenterology | DX: K21.9 Gastro-esophageal reflux disease without esophagitis (principal); K82.8 Other specified diseases of gallbladder; R10.11 Right upper quadrant pain; G89.29 Other chronic pain; R13.14 Dysphagia, pharyngoesophageal phase; Z87.19 Personal history of other diseases of the digestive system; K59.09 Other constipation | CPT/HCPCS: 99212 ==

== ENCOUNTER 2025-08-08 09:40 | Outpatient (AMB) | payer OTHER, SELFPAY ==
[2025-08-08 09:43] VITALS: BP 146/70; PULSE 93; RESP 16; O2SAT 98; BMI 41.7
--- NOTE | 2025-08-08 09:43 | A.OFFVIS_ITS ---
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 She came today to receive intra-articular knee steroid injection. Knee injection was performed as below. Risks and benefits of the procedure were delineated as bleeding infection and complications of the steroid medication. Prior: This patient is very well known to this office, about 3-1/2 years ago she was seen here with idiopathic left femoral neuropathy with pain radiating from the groin into the medial surface of the thigh medial surface of the knee and medial surface of the lower leg all the way to the medial surface of the left ankle. She was examined and she received a trial and following up stim wave/curonix PNS with excellent results. One year ago she felt on her chest and her left knee the chest trauma was surgically repaired however the left knee was examined by Orthopedic surgery, no reasons to operate on the knee was found, I presume that the patient did not have any meniscal tears. She still enjoys the stimulation from PNS for her neuropathy however she states that this device does not help her pain in the knee. We discussed alternatively genicular nerve block following radiofrequency ablation versus PRP injection, which would not be covered by insurance. She requested me to send her for knee x-ray, I will gladly send her for knee x-ray to evaluate her knee changes on the left. She wants to discuss PRP and cost of the procedure with her . She wants to schedule appointment with me in 1 week. [facility] Medical History GERD (gastroesophageal reflux disease) Benign essential hypertension Sacroiliitis Pure hypercholesterolemia Obesity (BMI 30-39.9) Hyperglycemia Allergic rhinitis Left leg pain Frequent headaches Lesion of femoral nerve, left lower limb Environmental allergies Hx of iron deficiency anemia Back pain Restless leg syndrome Medial epicondylitis of right elbow Right elbow pain Lumbar degenerative disc disease Surgical History Hx laparoscopic cholecystectomy (01/27/24) S/P placement of nerve stimulator History of esophagogastroduodenoscopy (EGD) Hx of colonoscopy Hx of knee surgery S/p bilateral myringotomy with tube placement History of nasal surgery Hx of shoulder surgery Family History Mother Hypertension Father Heart attack Throat cancer Sister Breast cancer Bone cancer Social History Household Members: Spouse Housing: House Are you a primary intensive care unit registered nurse to a significant other at home: No Do you presently have visiting nurse or other home services: Yes Alcohol intake: never Patient Tobacco Use Status: Former Tobacco user Tobacco use type: Cigarette Years Smoked: 10 e-Cigarette/Vaping Use: Currently Using Second Hand Smoke Exposure: No service: No Current occupational status: employed 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, 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) Hearing needs: No Vision needs: Yes (Glasses) Review of Systems Const All systems reviewed & are unremarkable except as noted in HPI and below Physical Exam Vital Signs: Last Vital Signs Pulse 93 08/08/25 09:43 Resp 16 08/08/25 09:43 BP 146/70 H 08/08/25 09:43 Pulse Ox 98 08/08/25 09:43 Oxygen Delivery Method Room Air 08/08/25 09:43 BMI result Body Mass Index 41.7 Const General: cooperative and no acute distress Orientation/consciousness: patient oriented x3 Resp Effort & Inspection: normal respiratory effort and able to speak in complete sentences Cardio Peripheral pulses: Peripheral pulses 2+ throughout Neuro General: patient oriented x3 Extrem Other: There is a scar on anterior surface of the left knee. The scar is very well- healed. Limited range of motion of the left knee. No cogwheel motion. Crepitus on palpation with motion is sensed. Valgus knee deformities observed Office Procedures AMB Knee Injection AMB Knee Injection Knee Injection - : Left All charges added?: Procedure code (CPT) selection complete Office Meds Kenalog 40 mg/mL suspension for injection Performing Provider: Luigi Zambrano MD Performing Location: [facility] Administered by: Luigi Zambrano MD on 08/08/25 10:03 Dose Route Admin Location Dispensed Lot Number Expiration Date [employer] 40 mg intra-articular Left knee 1 mL [id number] 04/09/26 [employer] Total Dispensed Waste 1 mL 0 % Results Reviewed Results Reviewed: XR KNEE, LEFT CLINICAL INFORMATION: Left knee pain. Atraumatic arthropathy. COMPARISON: Left knee MRI dated 12/08/2022. Left knee radiographs dated 03/02/2023. TECHNIQUE: Four views of the left knee. FINDINGS: No acute fracture or dislocation. No joint space narrowing or marginal osteophytes. No osseous erosion. No abnormal soft tissue calcification. Trace joint effusion. Assessment & Plan Assessment & Plan (1) Traumatic arthritis of left knee: Code(s): M12.562 - Traumatic arthropathy, left knee Category: Medical (2) Lesion of femoral nerve, left lower limb: Comment: Has femoral nerve neuropathy Code(s): G57.22 - Lesion of femoral nerve, left lower limb Category: Medical (3) Left knee pain: Comment: initial injury occurred in 06/2022 Code(s): M25.562 - Pain in left knee Category: Medical Qualifiers: Chronicity: unspecified Qualified Code(s): M25.562 - Pain in left knee (4) Osteoarthritis of left knee: Code(s): M17.12 - Unilateral primary osteoarthritis, left knee Category: Medical Plan: The patient is positioned sitting on the examination bed and the anterior lateral surface of the left knee was prepped with ChloraPrep. Informed consent was thoroughly explained to the patient. Sterilely obtained ropivacaine 0.5% 4 cc mixed with Kenalog as above was sterilely injected into the knee in anterior lateral fashion. The patient tolerated the procedure well. The needle was withdrawn sterile Band-Aid was applied. Plan She still likes the effect of the peripheral nerve stimulation. She is doing okay and not complaining on her sacroiliac joint pain today. Posttraumatic knee osteoarthritis would need to be evaluated. X-ray was performed and it demonstrated fusion in the knee. Most likely posttraumatic osteoarthritis confirmed. Injection of the steroid see as above. No new appointment is necessary unless patient wants to come and see me. Orders: Orders AMB Knee Injection Today M25.562 - Pain in left knee Coding Level of Care Code Est Pt Level 3 (44018) Procedure Only Diagnoses Traumatic arthritis of left knee M12.562 Lesion of femoral nerve, left lower limb G57.22 Left knee pain, unspecified chronicity M25.562 Chronicity: unspecified Osteoarthritis of left knee M17.12 CPT Codes AMB Knee Injection - Hip/Bursa Injection - : Left ([id number])
--- OUTSIDE RECORDS SUMMARY | 2025-08-08 11:33 | XMS_ITS | Patient Health Record ---
Author Organization [facility] Address [address] [place] [address] Care Team Providers Care Crew Director Name Role Phone Obi KAY, Pallavi Domingo Primary Care Provider Un available AlejandraJa marionen Unavailable [phone] Allergies Allergen (clinical drug ingredient) Drug/Non Drug [...] Insured Coverage Start Date Coverage End Date [place] [id number] [place] [phone] [id number] Eloise Fenton Self - patient is the insured Medical (General) History Medical History History ICD Code Back,Hip,and Knee pain Chicken pox chronic sinusitis Surgical History Surgery Date(Month/Year) shoulder surgery 01/15/17 Eustachian Tuboplasty nasal surgery 1999
== END 2025-08-08 10:06 | disposition home or self-care (01) ==
LOC: HO.PMC 09:41
PROVIDERS: PCP Internal Medicine; Visit Provider Anesthesiology
DX: M12.562 Traumatic arthropathy, left knee (principal); G57.22 Lesion of femoral nerve, left lower limb; M25.562 Pain in left knee; M17.12 Unilateral primary osteoarthritis, left knee
CPT/HCPCS: 20610; 99213

== ENCOUNTER → 2025-08-08 09:40 | Outpatient (BNVA) | payer OTHER, SELFPAY | PROVIDERS: PCP Internal Medicine; Visit Provider Anesthesiology | DX: M12.562 Traumatic arthropathy, left knee (principal); M17.12 Unilateral primary osteoarthritis, left knee; G57.22 Lesion of femoral nerve, left lower limb | CPT/HCPCS: 20610; 99212; J3301 ==

== ENCOUNTER 2025-09-12 14:13 | Outpatient (AMB) | payer OTHER, SELFPAY ==
[2025-09-12 14:22] VITALS: BP 120/68; PULSE 85; O2SAT 96; BMI 40.9
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
--- OUTSIDE RECORDS SUMMARY | 2025-09-12 17:03 | XMS_ITS | Patient Health Record ---
Author Organization [facility] Address [address] [place] [address] Care Team Providers Care School Guard Name Role Phone Obi KAY, Pallavi Domingo Primary Care Provider Un available AlejandraJa marionen Unavailable [phone] Allergies Allergen (clinical drug ingredient) Drug/Non Drug [...] Insured Coverage Start Date Coverage End Date [place] [id number] [place] [id number] Eloise Fenton Self - patient is the insured Medical (General) History Medical History History ICD Code Back,Hip,and Knee pain Chicken pox chronic sinusitis Surgical History Surgery Date(Month/Year) shoulder surgery 01/15/17 Eustachian Tuboplasty nasal surgery 1999
== END 2025-09-12 14:51 | disposition home or self-care (01) ==
LOC: HO.HMCH 14:14
PROVIDERS: Visit Provider Internal Medicine
DX: M51.360 Other intervertebral disc degeneration, lumbar region with discogenic back pain only (principal); M47.812 Spondylosis without myelopathy or radiculopathy, cervical region; E66.9 Obesity, unspecified; Z68.41 Body mass index [BMI] 40.0-44.9, adult; G57.22 Lesion of femoral nerve, left lower limb; K59.09 Other constipation; I10 Essential (primary) hypertension; E78.00 Pure hypercholesterolemia, unspecified; K21.9 Gastro-esophageal reflux disease without esophagitis; J30.9 Allergic rhinitis, unspecified; L98.9 Disorder of the skin and subcutaneous tissue, unspecified; F41.9 Anxiety disorder, unspecified

== ENCOUNTER → 2025-09-12 14:13 | Outpatient (BNVA) | payer OTHER, SELFPAY | PROVIDERS: Visit Provider Internal Medicine | DX: M51.360 Other intervertebral disc degeneration, lumbar region with discogenic back pain only (principal); M47.812 Spondylosis without myelopathy or radiculopathy, cervical region; G57.22 Lesion of femoral nerve, left lower limb; K59.09 Other constipation; I10 Essential (primary) hypertension; E78.00 Pure hypercholesterolemia, unspecified; K21.9 Gastro-esophageal reflux disease without esophagitis; J30.9 Allergic rhinitis, unspecified; L98.9 Disorder of the skin and subcutaneous tissue, unspecified; F41.9 Anxiety disorder, unspecified; E66.9 Obesity, unspecified; Z68.41 Body mass index [BMI] 40.0-44.9, adult | CPT/HCPCS: 96127; 99212 ==

== ENCOUNTER 2025-09-27 11:40 | Outpatient (AMB) | payer OTHER, SELFPAY ==
[2025-09-27 11:44] VITALS: BP 120/83; PULSE 112; BMI 40.1
--- NOTE | 2025-09-27 11:44 | MHC.OFFVIS ---
Vital Signs 09/27/25 11:44 Height 5 ft 4 in Weight 233 lb 11.04 oz BMI 40.1 BP 120/83 Blood Pressure Location Lt brachial Position Sitting Pulse 112 H Intake Visit Reasons: 4 mth Follow up RUQ pain and constipation Intake Note: Eloise presents in the office as a 4 month follow up CC: States she is in pains in the stomach as we speak and she states she also still has constipation. 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: No Allergies cephalexin Allergy (Severe, Verified 09/27/25 12:05) Anaphylaxis Sulfa (Sulfonamide Antibiotics) Allergy (Intermediate, Verified 09/27/25 12:05) hives sulfamethoxazole (From BACTRIM) Allergy (Intermediate, Verified 09/27/25 12:05) RASH trimethoprim (From BACTRIM) Allergy (Intermediate, Verified 09/27/25 12:05) RASH Medication List - Last Reconciled 09/27/25 by Ashwin Juarez MD acetaminophen 650 mg (2 x 325 mg) PO QID PRN 30 days amlodipine (Norvasc) 10 mg PO DAILY 30 days atorvastatin 10 mg PO BEDTIME 90 days azelastine 1 spray intranasal BID cyclobenzaprine 5 mg PO TID PRN fexofenadine (Allergy Relief (fexofenadine)) 180 mg PO DAILY linaclotide (Linzess) 145 mcg PO QAM 90 days losartan 50 mg PO DAILY 90 days omeprazole 20 mg PO DAILY 90 days ondansetron 4 mg PO Q8H PRN 15 days oxycodone 10 mg PO Q8H PRN 28 days polyethylene glycol 3350 (Miralax) 17 grams PO BID 90 days sennosides-docusate sodium 8.6-50 mg (Stool Softener-Stimulant Laxative) 1 cap PO BEDTIME HPI HPI 4 mth Follow up RUQ pain and constipation: Details: GI clinic visit for this 55 YF for FU after an episode of right sided abdominal pain. Patient was [place] [facility] [place] with right-sided abdominal pain diagnosed with ischemic colitis. She had recurrent pain in May and June and was treated with p.o. Augmentin for 10 days with resolution. TODAY'S VISIT: Taking Linzess 145 mcg and Miralax once a day and continues to have constipation If misses Miralax for a single day, it takes 5-6 days for her to have a BM after she resumes taking it Taking iron pills for anemia Usually has a BM 1-2 times a day (usually loose like a cow pady) PAST VISITS: RUQ has improved - noted an episode 3 days ago Used heating pad which helped Taking probiotics which has helped. BMs are more regular - daily Taking Linzess daily and Miralax prn Sometimes no BM for 1-2 days - takes Miralax with good results Sometimes notes a lump in the RUQ Had an episode of discomfort in the bladder which improved after she had a BM Pt is leaving for [place] since her Dad is scheduled for surgery for throat cancer PAST VISITS: Clinic visit converted to telemedicine visit since pt is sick Feels sick most of the time I get this massive pain which starts under the right breast and radiates to the bottom of the rib cage Pain started in Feb, 2025, is constant and sore to touch Pain is not affected by food intake, gets worse on twisting her waist and taking a deep breath and sitting and bending the body Denies fever, chills or sweating. Notes swelling and a lump on the right side. Has no insurance and not able to take her usual medication. Once a month she develops obstipation and then gets the runs with resolution. Complains of nausea and is feeling sick to the stomach. Patient cc: acid reflex and constipation. Denies any other GI issues. Continues to have constipation. No BM x 3-4 weeks and then multiple BMs over 2-3 BM Last BM was 1-2 weeks ago - initial BM is hard and pt has to strain to have a BM Patient yearly follow up for Chronic RUQ pain. Notes significant improvement in RUQ pain after Lap Jenelle Patient cc: Nauseas on and off, abdominal pain with bloating, acid reflex wth burning sensation on and off, Constipation and some difficulty swallowing. Complains of constipation - no BMs for a month. Had a small BM yesterday - took an hour and a half. Patient cc: abdominal upset, RLQ pain and bloating, heartburn with burning sensation on her throat, constipation and some swallowing problems. Also patient needed 90 days supplies for her Omeprazole due the insurance. Complains of abdominal pain daily. Takes Ondansetron which helps relieve the pain partially. Has a BM once every 3 weeks with passage of hard stools. Has been feeling better for the past few weeks and notes some improvement in her appetite. For the past 2 weeks she has been eating regular diet (bland) without post prandial pain Can have abdominal pain if she eats spicy food Pain was similar to pain during hospitalization and gets worse after eating. Denies radiation to the back or shoulder. Notes diarrhea when she has episodes of abdominal pain with 3-4 loose stools. Intermittent dysphagia to solids and liquids - drinks water to help it go down. Denies episodes of regurgitation. Colonoscopy results reviewed. Did not feel hungry for a few days after the colonoscopy. Feels normal now Patient denies symptoms of heartburn, dysphagia, nausea, vomiting, change in appetite or weight. Denies recent change in bowel habits, constipation, diarrhea, black stools or rectal bleeding. Patient denies major cardiac or pulmonary problems, loud snoring or sleep apnea Denies problems with anesthesia in the past. Denies being on chronic anticoagulation. Patient denies known family history of colon polyps, colon cancer or other GI malignancies. 52 YF with osteoarthritis complicated by chronic pain, mood disorder, obesity, hld, seen at [facility] [place] on 03/22/23 with back and right sided abd pain.?Pt gives a hx of intermittent back pain for which she takes oxycodonePt reports she started having back pain yesterday (03/21/23) around noon which later migrated to right abdomen. She used a heating pad and took Flexeril without relief. Pt reports the pain as constant (with intermittent waves of increased pain), stabbing in character and > than 10/10 in intensity Pt admits to associated nausea and vomiting and has been unable to eat or drink anything without gagging except ice chips and sips of fluids. Drinking fluids can make the pain worse. Patient denies fever or chills.? Pt had 2 soft to loose BMs yesterday (greenish in color) and denies having a BM today. She admits to passing gas without improvement in pain Pt denies having similar pain in the past. Pt denies any cardiac or pulmonary problems, loud snoring or sleep apnea. Patient denies smoking and admits to drinking off and on when she is in distress. 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 Pt has a daughter, an adopted daughter and 2 step children. Patient's mom has kidney stones, gallbladder disease, coronary artery disease and history of colon polyps.? Patient denies known family history of IBD or GI malignancy. ? Labs in the ED showed? leukocytosis with left shift, Normal lipa IMAGING STUDIES: 12/10/23 HIDA SCAN SHOWED: There is very minimal gallbladder emptying during the sincalide infusion. At the end of the study the gallbladder shows marked retention of activity at 30 minutes following initiation of the sincalide infusion. There is almost complete clearance of activity from the liver at this time and diffuse small bowel activity Is well visualized. The calculated gallbladder ejection fraction is 4% (normal gallbladder ejection fraction is greater than 35%). IMPRESSION: 1. Visualization of the gallbladder is evidence of a patent cystic ductand strong evidence against the diagnosis of acute cholecystitis. The common bile duct is patent. Liver function appears normal. 2. Poor gallbladder emptying and a low gallbladder ejection fractionare evidence of impaired gallbladder contractility and most likely due to chronic cholecystitis. 07/[address] SCAN SHOWED: 1. Resolution of ascending colitis. 2. Hepatic steatosis. 3. Cholelithiasis. 4. Stable small renal cysts. ENDOSCOPIC STUDIES: 11/12/23 EGD SHOWED: Esophagus: GE junction at 36 cms. No esophagitis or Stockton's. Stomach: Patchy erythema in the antrum. Biopsies were obtained to check for Helicobacter pylori. Grade 2 flap valve on retroflexed examination of the cardia. Duodenum: Normal bulb and descending duodenum. Biopsies were obtained from 3rd part of the duodenum to check for celiac sprue Impression and Post Procedure Diagnosis: Endoscopy Findings: STOMACH: Mild antral gastritis - biopsies obtained to check for Helicobacter pylori DUODENUM: Normal - biopsies were obtained to check for celiac sprue BIOPSIES SHOWED: A. Small bowel, biopsy: Small-bowel/duodenal mucosa with preserved villi and no specific change. B. Gastric antrum, biopsy: Gastric antral mucosa with mild reactive changes, congestion, and focal minimal chronic inactive inflammation; negative for H pylori, intestinal metaplasia and dysplasia 04/12/23 COLONOSCOPY SHOWED:One medium sized polyp removed Focal area of edematous folds with ulcerations covered with exudate in the mid AC - likely resolving ischemic colitis and less likely IBD. Linear erosions with a few aphthoid ulcers in the distal rectum - biopsies were obtained to check for proctitis. Mild diverticulosis seen in the sigmoid colon Moderate hemorrhoids on retroflexed exam. Plan: Repeat Colonoscopy interval based on path results - in 3-5 years if polyps are adenomatous and 10 years if polyps are hyperplastic. Above findings were reviewed with the patient and colon polyps and ischemic colitis handouts were given in the discharge area Pt continues to experience postprandial abdominal cramps and bloating - though her symptoms are gradually improving. BIOPSIES SHOWED: A. Colon, right, biopsy: Colonic mucosa with marked regenerative crypt changes, increased eosinophils, minimal active inflammation and marked reactive epithelial changes without a basal lymphoplasmacytic infiltrate or granulomas (see comment). B. Colon, sigmoid, polyp: Tubular adenoma; negative for high-grade dysplasia and carcinoma. C. Colon, rectum, biopsy: Colonic mucosa with minor crypt distortion, lymphoid aggregate, and congestion; negative for colitis/proctitis, granulomas and dysplasia. Comment: (A): Appearances suggest a healing/resolving mucosal injury rather than a chronic colitis; clinical correlation and follow-up warranted [facility] Medical History GERD (gastroesophageal reflux disease) Benign essential hypertension Sacroiliitis Pure hypercholesterolemia Obesity (BMI 30-39.9) Hyperglycemia Allergic rhinitis Left leg pain Frequent headaches Lesion of femoral nerve, left lower limb Environmental allergies Hx of iron deficiency anemia Back pain Restless leg syndrome Medial epicondylitis of right elbow Right elbow pain Lumbar degenerative disc disease Surgical History Hx laparoscopic cholecystectomy (01/27/24) S/P placement of nerve stimulator History of esophagogastroduodenoscopy (EGD) Hx of colonoscopy Hx of knee surgery S/p bilateral myringotomy with tube placement History of nasal surgery Hx of shoulder surgery Family History Mother Hypertension Father Heart attack Throat cancer Sister Breast cancer Bone cancer Social History Household Members: Spouse Housing: House Are you a primary health care social worker to a significant other at home: No Do you presently have visiting nurse or other home services: Yes Alcohol intake: never Patient Tobacco Use Status: Former Tobacco user Tobacco use type: Cigarette Years Smoked: 10 e-Cigarette/Vaping Use: Currently Using Second Hand Smoke Exposure: No service: No Current occupational status: employed 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 occupation: POL[employer]ER [employer] BU[employer], 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) Hearing needs: No Vision needs: Yes (Glasses) Physical Exam Vital Signs: Last Vital Signs Pulse 112 H 09/27/25 11:44 BP 120/83 09/27/25 11:44 BMI result Body Mass Index 40.1 Const General: healthy appearing and no acute distress Nutritional Appearance: obese Orientation/consciousness: patient oriented x3 Limitations: no limitations HEENT Head: Yes normal to inspection Ears: hearing grossly normal bilaterally Mouth: Normal oral and palatal mucosa present Eyes Sclerae: sclerae normal Pupils: Equal, round and reactive pupils present Neck Neck: Yes normal visual inspection Chest Chest palpation & inspection: normal inspection of the chest Resp Effort & Inspection: normal respiratory effort Auscultation: clear to auscultation bilaterally Cardio Palpation: normal PMI Rate: regular rate Rhythm: regular rhythm Heart sounds: S1 normal heart sound present, S2 normal heart sound present and no murmurs GI Palpation (GI): Soft to palpation, nontender and No hepatosplenomegaly present Auscultation: normal bowel sounds Rectal Exam - Female: deferred Skin General skin exam: no rashes or lesions noted Neuro General: patient oriented x3, gait normal and moves all extremities Cranial nerves: Yes Equal, round and reactive pupils present Psych Appearance: grossly normal Mental Status: mental status grossly normal Assessment & Plan Assessment & Plan (1) Dysphagia, pharyngoesophageal phase: Code(s): R13.14 - Dysphagia, pharyngoesophageal phase Category: Surgical (2) GERD (gastroesophageal reflux disease): Code(s): K21.9 - Gastro-esophageal reflux disease without esophagitis Category: Medical Qualifiers: Esophagitis presence: without esophagitis Qualified Code(s): K21.9 - Gastro-esophageal reflux disease without esophagitis (3) Status post laparoscopic cholecystectomy: Code(s): Z90.49 - Acquired absence of other specified parts of digestive tract Category: Surgical (4) Colon cancer screening: Comment: 04/2023 Colonoscopy showed resolving focal colitis in the ascending colon and one medium sized polyp was removed. Repeat colonoscopy is advised in 3 years - due 04/2026 Code(s): Z12.11 - Encounter for screening for malignant neoplasm of colon Category: Medical (5) Chronic constipation: Code(s): K59.09 - Other constipation Category: Medical (6) History of ischemic colitis: Code(s): Z87.19 - Personal history of other diseases of the digestive system Category: Medical Plan 55 YF with osteoarthritis complicated by chronic pain, mood disorder, obesity, hyperlipidemia, admitted [place] [facility] [place] 03/22/23 with back and right sided abd pain.? Pt reported the pain as constant (with intermittent waves of increased pain), stabbing in character and > than 10/10 in intensity Pt admits to associated nausea and vomiting and has been unable to eat or drink anything without gagging except ice chips and sips of fluids. Drinking fluids can make the pain worse. Patient denies fever or chills.? She admited to passing gas without improvement in pain Abd CT scan showed?Marked mural thickening and pericolonic inflammatory changes are noted involving the right-sided colon starting from the level of the cecum to the hepatic flexure without evidence of any bowel obstruction, perforation or abscess formation. There are few shotty adjacent mesenteric lymph nodes noted. 12/16/23 HIDA scan showed GB EF of 4%. Pt has chronic RUQ pain with local tenderness Patient had a Lap Jenelle on 01/27/[address] Cardona. 05/04/24 Pt complains of constipation - no BM x 1 month (likely related to narcotics) pt was advised to: 1. Take 2 fleet enemas 2. Go on a liquid diet x 24 hrs and take Miralax prep to clean out the colon 3. Increase Linzess to 290 mcg daily 06/08/24 Continues to have constipation. No BM x 3-4 weeks and then multiple BMs over 2-3 days Last BM was 1-2 weeks ago - initial BM is hard and pt has to strain to have a BM Patient advised to switch from Linzess to Amitiza and take Fleet enema p.r.n. for constipation 04/19/25 Complains of RUQ pain which is not affected by food intake, gets worse on twisting her waist and taking a deep breath and sitting and bending the body Thinks pain is worse when she is constipated. Pain can be musculoskeletal pain from abdominal wall versus related to obstipation Advised a trail of local heat and topical analgesics. Had to decrease Linzess to 1 tab daily (instead of two) due to insurance coverage Advised to increase Miralax to twice daily. 06/07/25 Taking Linzess daily and Miralax prn Had an episode of discomfort in the bladder which improved after she had a BM Pt is leaving for [place] since her Dad is scheduled for surgery for throat cancer Pt advised to continue with above bowel program and take Miralax 3-4 times a day once a month 09/27/25 Taking Linzess 145 mcg and Miralax once a day and continues to have constipation If misses Miralax for a single day, it takes 5-6 days for her to have a BM after she resumes taking it Taking iron pills for anemia Pt advised to switch to Trulance 3 mg daily (If approved by her insurance) FU in 5 months - scheduled 03/07/26 Medications: New plecanatide (Trulance) 3 mg PO DAILY 30 tabs 3RF 30 days Coding Level of Care Code Est Pt Level 4 (37605) Diagnoses Dysphagia, pharyngoesophageal phase R13.14 Gastroesophageal reflux disease without esophagitis K21.9 Esophagitis presence: without esophagitis Status post laparoscopic cholecystectomy Z90.49 Colon cancer screening Z12.11 Chronic constipation K59.09 History of ischemic colitis Z87.19 Time Spent (min) 21
--- OUTSIDE RECORDS SUMMARY | 2025-09-27 15:25 | XMS_ITS | Patient Health Record ---
Author Organization [facility] Address [address] [place] [address] Care Team Providers Care Sample Paster Name Role Phone Obi KAY, Pallavi Domingo Primary Care Provider Un available AlejandraJa marionen Unavailable [phone] Allergies Allergen (clinical drug ingredient) Drug/Non Drug [...] Insured Coverage Start Date Coverage End Date [place] [id number] [place] [phone] [id number] Eloise Fenton Self - patient is the insured Medical (General) History Medical History History ICD Code Back,Hip,and Knee pain Chicken pox chronic sinusitis Surgical History Surgery Date(Month/Year) shoulder surgery 01/15/17 Eustachian Tuboplasty nasal surgery 1999
== END 2025-09-27 12:39 | disposition home or self-care (01) ==
LOC: HO.HGI 11:41
PROVIDERS: PCP Internal Medicine; Visit Provider Internal Medicine Gastroenterology
DX: R13.14 Dysphagia, pharyngoesophageal phase (principal); K21.9 Gastro-esophageal reflux disease without esophagitis; Z90.49 Acquired absence of other specified parts of digestive tract; K59.09 Other constipation; Z87.19 Personal history of other diseases of the digestive system
CPT/HCPCS: 99214

== ENCOUNTER → 2025-09-27 11:40 | Outpatient (BNVA) | payer OTHER, SELFPAY | PROVIDERS: PCP Internal Medicine; Visit Provider Internal Medicine Gastroenterology | DX: K21.9 Gastro-esophageal reflux disease without esophagitis (principal); R13.14 Dysphagia, pharyngoesophageal phase; K59.09 Other constipation; Z87.19 Personal history of other diseases of the digestive system; Z90.49 Acquired absence of other specified parts of digestive tract | CPT/HCPCS: 99212 ==